=== PATIENT | female | born 1960 | race Hispanic/Latino ===

== ENCOUNTER 2018-10-12 20:38 | Emergency (ER) | payer OTHER ==
--- OUTSIDE RECORDS SUMMARY | 2018-10-12 20:40 | XMS REPORT | Clinical Summary ---
:1960 Author Organization [facility] Address [address] [place] [address] Care Team Providers Name Role Phone Rishi Seaman MD Primary Care Provider Allergies Not on File Medications Not on file Active Problems Not on file Encounters Date Type Specialty Care Team Description 12/12/2017 Transcribe Orders Physical Therapy Antonette Low Parkinson disease MD Angela (Primary Dx) after 10/11/2017 Social History Tobacco Use Types Packs/Day Years Used Date Never Assessed Sex Assigned at Date Recorded Not on file Job Start Date Occupation Industry Not on file Not on file Not on file Travel History Travel Start Travel End No recent travel history available. Last Filed Vital Signs Not on file Plan of Treatment Health Maintenance Due Date Last Done Comments CERVICAL CANCER SCREENING 10/18/1980 BREAST CANCER SCREENING 10/18/2009 COLON CANCER SCREENING 10/18/2009 SHINGLES VACCINES (#1) 10/18/2009 INFLUENZA VACCINE 03/11/2018 Results Not on fileafter 10/11/2017 Insurance Payer Benefit Plan / Group Subscriber ID Type Phone Address [place] [facility] [employer] xxxxxxxxxxxx [employer] Advance Directives Patient has advance care planning documents on file. For more information, please contact:[facility] [place] [address]
--- OUTSIDE RECORDS SUMMARY | 2018-10-12 20:41 | XMS REPORT | Continuity of Care Document ---
:1960 Author Organization Interface Problems Problem Status Onset Classification Date Comments Source Date Reported PARKINSONS DISEASE Active [address] Postlaminectomy 01/07/2018 [facility] syndrome, not 018 [place] elsewhere classified M54.16 - Active [facility] "RADICULOPATHY, 017 [place] LUMBAR REGION" UNK Active [place] 017 G89.4 - CHRONIC Active [facility] PAIN SYNDROME 016 [place] PARKINSON Active [address] TREMOR / LEFT SIDE Active [place] WEAKNESS 015 [place] / LEFT Active [place] SIDDE WEAKNESS 015 Vitamin D Active Problem 01/27/2018 Data [facility] deficiency<sup>1</ 015 [facility] sup> from [facility] on 02/15/15. 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, lumbar region Spinal stenosis, 01/07/2018 [facility] lumbar region [place] without neurogenic claudication Spinal stenosis, 01/07/2018 [facility] lumbosacral region [place] LT LEG/ARM UDU PANCHO Active [facility] LT LEG/ARM Active [facility] SPONDYLOSIS W/O Active [facility] MYELOPATHY OR RADICULOPA RADICULOPATHY, Active [facility] LUMBAR REGION Medications Medication Details Route Status Patient Ordering Order Source Instructions Provider Date Senokot 2 tab, Route: No Longer PO, Dosing Active 2016 [facility] Weight 43.324, kg, Daily, Start date: 02/04/17 9:00:00 CDT, Duration: 30 day, Stop date: 03/05/17 9:00:00 CDT heparin sodium, 5,000 unit, No Longer porcine 2500 Route: SUB-Q, Active 2016 [facility] UNT/ML Injectable Drug form: INJ, Solution Q12H, Dosing Weight 43.324, kg, Start date: 02/04/17 8:00:00 CDT, Duration: 30 day, Stop date: 03/05/17 21:00:00 CDT Famotidine 20 MG 20 mg, 1 tab, Inactive Oral Tablet Route: PO, Drug 2016 [facility] [Pepcid] form: TAB, Q12H, Dosing Weight 43.324, kg, Start date: 02/03/17 21:00:00 CDT, Duration: 30 day, Stop date: 03/05/17 9:00:00 CDT Docusate Sodium 100 mg, 1 cap, Inactive 100 MG Oral Route: PO, BID, 2016 [facility] Capsule [Colace] Dosing Weight 43.324, kg, Start date: 02/03/17 17:00:00 CDT, Duration: 30 day, Stop date: 03/05/17 9:00:00 CDT Cefazolin 1 gm, Route: Inactive IVPB, Drug 2016 [facility] form: INJ, Q8H, Dosing Weight 43.324, kg, Start date: 02/03/17 16:00:00 CDT, Duration: 3 doses or times, Stop date: 02/04/17 8:00:00 CDT, ABX Indication: Surgical Prophylaxis Pepcid 20 mg, Route: Inactive IVP, ONCE, 2016 [facility] Dosing Weight 43.324, kg, Start date: 02/03/17 10:38:00 CDT, Stop date: 02/03/17 10:38:00 CDT Reglan 10 mg, Route: Inactive IVPB, ONCE, 2016 [facility] Dosing Weight 43.324, kg, Start date: 02/03/17 10:38:00 CDT, Stop date: 02/03/17 10:38:00 CDT 72 HR Scopolamine 1 patch, Route: Inactive 0.0139 MG/HR TOP, Drug Form: 2016 [facility] Transdermal Patch ERFILM, Dosing Weight 43.324, kg, ONCE, Apply behind ear. Avoid use in elderly., Start date: 02/03/17 10:04:00 CDT, Stop date: 02/03/17 10:04:00 CDT Promethazine 6.25 mg, Route: Inactive 02/[facility] IVPB, ONCE, 2016 [facility] Dosing Weight 43.324, kg, PRN Nausea & Vomiting, Start date: 02/03/17 10:04:00 CDT Ondansetron 4 mg, Route: Inactive 02/[facility] IVP, ONCE, 2016 [facility] Dosing Weight 43.324, kg, PRN Nausea & Vomiting, Start date: 02/03/17 10:04:00 CDT Meperidine 12.5 mg, Route: Inactive 02/[facility] IVP, Q30Min, 2016 [facility] Dosing Weight 43.324, kg, PRN Other -See Comment, For shivering, Start date: 02/03/17 10:04:00 CDT, Duration: 2 doses or times, Stop date: Limited # of times Naloxone 0.4 mg, Route: Inactive IVP, Q2MIN, 2016 [facility] Dosing Weight 43.324, kg, PRN Narcotic Reversal, Start date: 02/03/17 10:04:00 CDT, Duration: 8 doses or times, Stop date: Limited # of times Flumazenil 0.2 mg, Route: Inactive 02/[facility] IVP, PRN, 2016 [facility] Dosing Weight 43.324, kg, PRN Benzodiazepine Reversal, Initial dose, Start date: 02/03/17 10:04:00 CDT, Duration: 30 day, Stop date: 03/05/17 10:03:00 CDT Diphenhydramine 12.5 mg, Route: Inactive IVP, Drug form: 2016 [facility] INJ, Q6H, Dosing Weight 43.324, kg, PRN Itching, Start date: 02/03/17 10:04:00 CDT, Duration: 30 day, Stop date: 03/05/17 10:03:00 CDT Ketorolac 30 mg, Route: Inactive IVP, ONCE, 2016 [facility] Dosing Weight 43.324, kg, Start date: 02/03/17 10:04:00 CDT, Duration: 1 doses or times, Stop date: 02/03/17 10:04:00 CDT Oxycodone 5 mg, Route: Inactive PO, Drug form: 2016 [facility] TAB, Q4H, Dosing Weight 43.324, kg, PRN Pain Score 4-6, Start date: 02/03/17 10:04:00 CDT, Duration: 30 day, Stop date: 03/05/17 10:03:00 CDT Fentanyl 25 microgram, Inactive Route: IVP, 2016 [facility] Q5Min, Dosing Weight 43.324, kg, PRN Pain Score 4-6, Priority: Routine, Start date: 02/03/17 10:04:00 CDT, Duration: 4 doses or times, Stop date: Limited # of times Morphine 2 mg, Route: Inactive IVP, Q5Min, 2016 [facility] Dosing Weight 43.324, kg, PRN Pain Score 4-6, Start date: 02/03/17 10:04:00 CDT, Duration: 5 doses or times, Stop date: Limited # of times Hydromorphone 0.5 mg, Route: Inactive IVP, Q5Min, 2016 [facility] Dosing Weight 43.324, kg, PRN Pain Score 7-10, Start date: 02/03/17 10:04:00 CDT, Duration: 4 doses or times, Stop date: Limited # of times Calcium Chloride 1,000 mL, Rate: Inactive 0.0014 MEQ/ML / 125 ml/hr, 2016 [facility] Potassium Infuse over: 8 Chloride 0.004 hr, Route: IV, MEQ/ML / Sodium Dosing Weight Chloride 0.103 43.324 kg, MEQ/ML / Sodium Total Volume: Lactate 0.028 1,000, Start MEQ/ML Injectable date: 02/03/17 Solution 10:04:00 CDT, Duration: 30 day, Stop date: 03/05/17 10:03:00 CDT magnesium citrate 300 ml, Route: Inactive PO, Drug Form: 2016 [facility] LIQ, Dosing Weight 43.324, kg, ONCE, PRN Constipation, Start date: 02/03/17 9:25:00 CDT Acetaminophen 325 1 tab, Route: Inactive MG / Hydrocodone PO, Drug Form: 2016 [facility] Bitartrate 5 MG TAB, Dosing Oral Tablet Weight 43.324, kg, Q4H, PRN Pain, Start date: 02/03/17 9:25:00 CDT, Duration: 30 day, Stop date: 03/05/17 9:24:00 CDT Dilaudid 0.5 mg, Route: Inactive IV, Q3H, Dosing 2016 [facility] Weight 43.324, kg, PRN Pain, Start date: 02/03/17 9:25:00 CDT, Duration: 30 day, Stop date: 03/05/17 9:24:00 CDT Zofran 4 mg, Route: Inactive IV, Drug form: 2016 [facility] INJ, Q8H, Dosing Weight 43.324, kg, PRN Nausea, Start date: 02/03/17 9:25:00 CDT, Duration: 30 day, Stop date: 03/05/17 9:24:00 CDT Sodium Chloride 1,000 mL, Rate: Inactive 0.154 MEQ/ML 75 ml/hr, 2016 [facility] Injectable Infuse over: Solution 13.3 hr, Route: IV, Dosing Weight 43.324 kg, Total Volume: 1,000, Start date: 02/03/17 9:25:00 CDT, Duration: 30 day, Stop date: 03/05/17 9:24:00 CDT neostigmine Route: IV, Drug Inactive (ANES) form: INJ, 2016 [facility] ONCE, Stop date: 02/03/17 9:16:00 CDT glycopyrrolate Route: IV, Drug Inactive (ANES) form: INJ, 2016 [facility] ONCE, Stop date: 02/03/17 9:16:00 CDT rocuronium (ANES) Route: IV, Drug Inactive form: INJ, 2016 [facility] ONCE, Stop date: 02/03/17 8:47:00 CDT dexamethasone Route: IV, Drug Inactive (ANES) form: INJ, 2016 [facility] ONCE, Stop date: 02/03/17 8:47:00 CDT ceFAZolin (ANES) Route: IV, Drug Inactive form: INJ, 2016, Stop date: 02/03/17 8:42:00 CDT acetaminophen Route: IV, Drug Inactive MH (ANES) form: INJ, 2016, Stop date: 02/03/17 8:42:00 CDT ondansetron Route: IV, Drug Inactive MH (ANES) form: INJ, 2016, Stop date: 02/03/17 8:42:00 CDT lidocaine (ANES) Route: IV, Drug Inactive form: INJ, 2016, Stop date: 02/03/17 8:12:00 CDT midazolam (ANES) Route: IV, Drug Inactive form: SOLN, 2016, Stop date: 02/03/17 8:12:00 CDT propofol (ANES) Route: IV, Drug Inactive form: INJ, 2016, Stop date: 02/03/17 8:12:00 CDT fentaNYL (ANES) Route: IV, Drug Inactive form: INJ, 2016, Stop date: 02/03/17 8:12:00 CDT Calcium Chloride 1,000 mL, Rate: Inactive 0.0014 MEQ/ML / 25 ml/hr, 2016 Potassium Infuse over: 40 Chloride 0.004 hr, Route: IV, MEQ/ML / Sodium Dosing Weight Chloride 0.103 43.324 kg, MEQ/ML / Sodium Total Volume: Lactate 0.028 1,000, Start MEQ/ML Injectable date: 02/03/17 Solution 7:49:00 CDT, Duration: 30 day, Stop date: 03/05/17 7:48:00 CDT LR 1000 mL INJ Route: IV, Inactive (ANES) Total Volume: 2016 1,000, Start date: 02/03/17 7:39:00 CDT, Stop date: 02/03/17 8:39:00 CDT Carbidopa 25 mg, PO, TID, Active 0 Refill(s) 2016 [facility] Allergies, Adverse Reactions, Alerts Substance Category Reaction Severity Reaction Status Date Comments Source type Reported traMADol Assertion Drug Active Mischer allergy Neuro Immunizations Immunization Date Given Site Status Last Updated Comments Source Results Order Name Results Value Reference Date Interpretation Comments Source Range Brain scan Brain scan EXAM: NM Brain Imaging SPECT 01/02 - [facility] SPECT NM SPECT - Medical This report was dictated by a Recycling Director/Fellow. I have personally reviewed the images as Center well as the Resident's interpretation and agree with the findings. DATE: 01/02/2018 10:11 AM CDT Read by: Robert Michaels MD Resident: Robert Michaels MD Dictated Date/time: 01/06/18 09:33 Electronically Signed by: Janneth Wilkinson MD 01/06/18 17:16 FINAL REPORT INDICATION: Brain CATRINA Scan-DX: Parkinson's Disease - Brain CATRINA Scan-DX: Parkinson's Disease, evaluate for Parkinson disease COMPARISON: Brain MRI from June 27, 2017. TECHNIQUE: After intravenous administration of 3 mCi of I-123 Ioflupane, delayed SPECT images of the head were obtained at 4 hours post injection. FINDINGS: Right striatum: There is decreased tracer uptake in the right putamen with a Z score of - 2.6 (Z scores represent standard deviation from normal age match population and are significant if less than -1.6). There is decreased tracer uptake in the right caudate with a Z score of - 2.01. The right striatum contributes 43% of the remaining dopamine transporter function with a Z score of -2.47 . Left striatum: Decrease tracer uptake in the left putamen is seen with a Z score of - 1.79. Tracer uptake is normal in the left caudate with a Z score of -1.55. The left striatum contributes 57% of the remaining dopamine transporter function with a Z score of -1.72. The remainder of tracer distribution in background brain parenchyma is within normal limits. IMPRESSION: The scan findings are suggestive of dysfunction of the dopamine transporters (right greater than left striata), suggestive of Parkinson disease. 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 After gadolinium administration, multiple sagittal and axial T1-we ighted images were obtained with fat suppression. Small hemangioma is noted at the right L3 vertebral body. Disc desiccation is present at the lower 3 lumbar intervertebral disc spaces with disc space narrowing noted at L5-S1. Modic changes are noted a t the opposing endplates at L4-L5 and the inferior endplate of L5. Schmorl' s node deformity at the inferior endplate of T12 and L3. Conus and cauda equina are unremarkable. Findings will be described per level as follows: At T12-L1,there is no acute disc herniation, central spinal stenosis or neural foraminal stenosis. At L1-L2,there is no acute disc herniation, central spinal stenosis or neural foraminal stenosis. At L2-L3,there is ligamentous thickening and degenerative arthropathy of the apophyseal joints at this level resulting in mild central spinal stenosis. No neural foraminal stenosis or acute disc herniation. At L3-L4,there is mild broad-based disc bulge present associated with ligamentous thickening and degenerative arthropathy of the apophyseal joints at this level resulting in moderate central spinal sten osis. No neural foraminal stenosis or acute disc herniation. At L4-L5,there is mild broad-based disc bulge present associated with ligamentous thickening and degenerative arthropathy of the apophyseal joints at this level resulting in moderate central spinal sten osis. No right neural foraminal stenosis. Mild left neural foraminal stenosis. No acute disc herniation. At L5-S1,there is moderate broad-based disc bulge present associated with ligamentous thickening and degenerative arthropathy of the apophyseal joints at this level resulting in no significant central s jhoana stenosis. Bilateral neural foraminal stenosis. No acute disc herniation. Left hemilaminectomy defect. A 9 x 9 x 9 mm cystic structure is noted at the lateral aspect of the spinal canal at this lev el in close approximation to the inferior aspect of the left apophyseal joint at this level which could represent a synovial cyst or radicular cyst. Enhancement is present at the dorsal lumbar soft tiss ues along the left paramedian incision contiguous with enhancement at the laminectomy defect similar to the previous exam now demonstrating extension into the left side of the lumbar spinal canal at thi s level encasing this cystic structure with enhancement. IMPRESSION: 1. Interval extension of enhancement into the left side of the lumbar spinal canal at the level of L5-S1 encasing a 9 x 9 x 9 mm cystic structure consistent with a radicular cyst or synovial cyst. 2. At L5-S1, enhancement is present at the dorsal lumbar soft tissues along the left paramedian incision contiguous with enhancement at the left laminectomy defect similar to the previous exam consistent with postoperative change. 3. Degenerative disc disease at L3-L4, L4-L5 and L5-S1 worst at L5-S1. 4. At L4-L5, mild left neural foraminal stenosis. 5. At L5-S1, bilateral neural foraminal stenosis. 6. Moderate central spinal stenosis is noted at L3-L4 and L4-L5. 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 Post-contrast sequences were also obtained. Contrast: 9 cc of IV gadolinium was administered. FINDINGS: ALIGNMENT AND GENERAL ASSESSMENT: 5 nonrib-bearing lumbar vertebra are present. No acute compression fracture or subluxation is seen. No pars interarticularis defects are present. The discs are desiccat ed in the lower lumbar spine from L3-L4 through L5-S1. Severe disc height loss at L5-S1 is seen. Modic type I degenerative endplate change at L4-L5 is seen. The discs in the upper lumbar spine are yu l in signal intensity and height. The conus terminates at L1. Paravertebral soft tissues are unremarkable. DISC SPACES: T12-L1: The disc is normal. There is no central or foraminal stenosis. The facet joints are unremarkable. L1-L2: The disc is normal. There is no central or foraminal stenosis. Mild facet arthrosis is present. L2-L3: The disc is normal. There is no central or foraminal stenosis. Mild facet arthrosis is present. L3-L4: Small annular disc bulge is present. Mild facet arthrosis and ligamentum flavum hypertrophy is seen. There is no spinal canal stenosis or neural foraminal narrowing. L4-L5: Large annular disc bulge is present. Moderate facet arthrosis and ligamentum flavum hypertrophy is seen. No central spinal canal stenosis is seen. There is mild to moderate bilateral neural foraminal narrowing, left greater than right. L5-S1: Large circumferential disc osteophyte complex is present. Moderate facet arthrosis is seen. Postoperative changes of left hemilaminectomy are seen with enhancing granulation tissue within the po stoperative site. There is no central spinal canal stenosis. Moderate- severe bilateral neural foraminal narrowing, right greater than left, is seen. There is no significant nerve root clumping to suggest arachnoiditis. IMPRESSION: 1. Degenerative changes of the lower lumbar spine with moderate-severe bilateral neural foraminal narrowing at L5-S1, right greater than left. 2. L4-L5 mild to moderate bilateral neural foraminal narrowing, left greater than right. 3. Postoperative changes of left L5 hemilaminectomy with enhancing granulation tissue within the postoperative bed. 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 FINDINGS: ALIGNMENT AND GENERAL SURVEY: There is normal alignment of the thoracic spine. T8 vertebral body hemangioma is present. The bone marrow is otherwise normal for the patient's age. There are no frac tures or compression deformities. The thoracic spine posterior elements are normal. The costovertebral junctions are unremarkable. SPINAL CORD: The thoracic spine spinal cord is normal in size and signal. The CSF space is unremarkable. The conus medullaris ends at the L1 level. DISK SPACES: The discs are desiccated throughout the thoracic spine and show mild disc height loss throughout the mid to lower thoracic spine. There is no disc bulge, protrusion or degenerative change a nd no significant central or foraminal stenosis. Scattered Schmorl's nodes in the lower thoracic spine are seen. IMPRESSION: No significant disc bulges or protrusions throughout the thoracic spine and no spinal canal stenosis or neural foraminal narrowing. SL: [id number] Brain wo Brain wo Study: Brain wo contrast MRI 06/27 - [facility] contrast contrast /2016 - [facility] Clinical Indication: R53.1 Weakness - R53.1 Weakness Read by: Reji Villatoro MD Dictated Date/time: 06/27/17 07:53 Electronically Signed by: Reji Villatoro MD 06/27/17 08:06 FINAL REPORT Comparison: None TECHNIQUE: Multiplanar, multisequence magnetic resonance imaging of the brain was performed before and after the administration of intravenous gadolinium contrast. FINDINGS: BRAIN PARENCHYMA: The brain parenchyma has normal signal with normal moblye- white junction, sulci, and gyri. There is no diffusion weighted imaging or ADC map abnormality to suggest acute/subacute ischem ia. No acute intracranial hemorrhage, mass effect, midline shift, or extra -axial fluid collection is seen. The corpus callosum appears normal. There is no magnetic susceptibility to suggest recent or r emote intracranial hemorrhage. No abnormal enhancement is seen. CEREBELLOPONTINE REGIONS AND SKULL BASE: The cerebellopontine angles appear unremarkable. The skull base, craniocervical junction, and brainstem are normal. The optic chiasm is normal. The sellar and pineal regions are unremarkable. VENTRICLES: The ventricles are normal in size and configuration. The basilar cisterns are normal. VESSELS: The venous sinuses are grossly unremarkable. The expected intracranial flow voids are present. ORBITS, VISUALIZED PARANASAL SINUSES AND MASTOIDS: The visualized orbits and paranasal sinuses are unremarkable. The mastoid air cells are clear. IMPRESSION: 1. No acute intracranial abnormality. 2. No abnormal enhancement. SL: [id number] Knee 3 Knee 3 Views EXAM: Knee 3 Views Bilateral DX 03/28 [facility] Views Bilateral DX /2016 - [place] Bilateral DATE: 03/28/2017 2:50 PM CDT DX INDICATION: - pain in bilateral knees Read by: Jamil Esquivel MD Dictated Date/time: 03/28/17 16:33 COMPARISON: None. Electronically Signed by: Jamil Esquivel MD 03/28/17 16:34 FINAL REPORT IMPRESSION: Right knee: No definite gross acute fracture or dislocation detected. Mild degenerative change about the knee, most noticeable along the medial compartment. No significant suprapatellar joint effusion is present. Left knee: No definite gross acute fracture or dislocation detected. Mild degenerative change about the knee, most noticeable along the medial compartment. No significant suprapatellar joint effusion is present. SL: [id number] Spine Spine EXAM: MRI CERVICAL SPINE WITHOUT CONTRAST 03/28 [facility] cervical cervical wo /2016 - [place] wo contrast MRI contrast MRI DATE: 03/28/2017 2:14 PM CDT Read by: Jamil Esquivel MD Dictated Date/time: 03/28/17 15:56 Electronically Signed by: Jamil Esquivel MD 03/28/17 16:10 FINAL REPORT INDICATION: Neck pain. ADDITIONAL INFORMATION AND CONTRAST: M47.812 Spondylosis without myelopathy or radiculopathy, cervical region - M47.812 Spondylosis without myelopathy or radiculopathy, cervical region. COMPARISON: None. TECHNIQUE: Multiplanar, multisequence noncontrast MR imaging of the cervical spine. FINDINGS: Vertebrae: Normal in shape, signal intensity and alignment. A 7.0 mm posterior superior C4 vertebral lesion likely hemangioma. Disks and neuroforamina: C1-C2: Gross anatomic alignment. C2-C3: No acute disc herniation, significant spinal or foraminal stenosis detected. C3-C4: Mild diffuse disc bulge effacing the anterior CSF space without significant cord contour abnormality. Mild bilateral foraminal stenosis is present. C4-C5: Mild diffuse disc bulge. No significant cord contour abnormality or edema. No significant foraminal stenosis detected. C5-C6: Posterior disc osteophyte complex and disc bulge. No significant cord contour abnormality or edema. Severe bilateral foraminal stenosis from prominent uncovertebral hypertrophy and facet arthrosi s. Please correlate with neurologic symptoms. C6-C7: Posterior disc osteophyte complex and disc bulge. No significant cord contour abnormality or edema. No significant foraminal stenosis detected. C7-T1: No acute disc herniation, significant spinal or foraminal stenosis detected. Spinal canal and cord: No convincing evidence of cord compression or focal signal abnormality detected. Paraspinal soft tissues: Normal. IMPRESSION: 1. Multilevel degenerative disc disease and facet arthrosis, most pronounced at C3/C4, C5/C6 and C6/C7 as detailed above. 2. No definite acute compression fracture or pathologic subluxation detected. SL: [id number] BLOOD BANK Antibody Negative 01/27 RESULTS Scrn /2016 [facility] (01/27/17 11:42 AM) BLOOD BANK ABO/Rh O POS 01/27 RESULTS /2016 [facility] CHEM PANEL Globulin 3.1 g/dL 2.7 - 4.2 01/27 [facility] CHEM PANEL AGAP 11.9 meq/L 10.0 - 01/27 MH 20.0 [facility] CHEM PANEL A/G Ratio 1.3 0.7 - 1.6 01/27 [facility] CHEM PANEL B/C Ratio 22 6 - 25 01/27 /2016 [facility] CHEM PANEL eGFR 97 01/27 Result Comment: The eGFR is calculated using the CKD-EPI formula. In most young, healthy individuals the eGFR will be >90 mL/ min/1.73m2. The eGFR declines with age. An eGFR of 60-89 may be normal in mL/min/1.7 /2017 some populations, particularly the elderly, for whom the CKD-EPI formula has not been extensively validated. Use of the eGFR is not recommended in the following populations: [place] 3m2 Individuals with unstable creatinine concentrations, including patients and those with serious co-morbid conditions. Patients with extremes in muscle mass or diet. The data above are obtained from the National Kidney Disease Education Program (NKDEP) which additionally recommends that when the eGFR is used in patients with extremes of body mass index for purposes of drug dosing, the eGFR should be multiplied by the estimated BMI. CHEM PANEL AST 11 unit/L 0 - 37 01/27 [facility] CHEM PANEL Bili Total 0.3 mg/dL 0.2 - 1.3 01/27 [facility] CHEM PANEL Alk Phos 129 unit/L 39 - 136 01/27 [facility] CHEM PANEL BUN 15 mg/dL 7 - 22 01/27 [facility] CHEM PANEL CO2 28 meq/L 24 - 32 01/27 [facility] CHEM PANEL Chloride Lvl 104 meq/L 95 - 109 01/27 [facility] CHEM PANEL Creatinine 0.68 mg/dL 0.50 - 01/27 Lvl 1.40 /2016 [facility] CHEM PANEL Glucose Lvl 101 mg/dL 70 - 99 01/27 [facility] CHEM PANEL Sodium Lvl 139 meq/L 135 - 145 01/27 [facility] CHEM PANEL Potassium 4.9 meq/L 3.5 - 5.1 01/27 Lvl [facility] CHEM PANEL ALT 19 unit/L 0 - 65 01/27 [facility] CHEM PANEL Calcium Lvl 9.6 mg/dL 8.5 - 10.5 01/27 [facility] CHEM PANEL Total 7.2 g/dL 6.4 - 8.4 01/27 [facility] CHEM PANEL Albumin Lvl 4.1 g/dL 3.5 - 5.0 01/27 [facility] HEMATOLOGY Monocytes # 0.4 K/CMM 0.0 - 0.8 01/27 [facility] HEMATOLOGY Segs-Bands # 4.5 K/CMM 1.5 - 8.1 01/27 [facility] HEMATOLOGY Lymphocytes 1.6 K/CMM 1.0 - 5.5 01/27 MH # /2017 [facility] HEMATOLOGY Eosinophils 0.7 % 0.0 - 4.0 01/27 [facility] HEMATOLOGY Basophils 0.5 % 0.0 - 1.0 01/27 [facility] HEMATOLOGY Monocytes 5.9 % 2.0 - 12.0 01/27 /2016 [facility] Lymphocytes 24.5 % 20.0 - 01/27 MH 40.0 /2016 [facility] Segs 68.4 % 45.0 - 01/27 MH 75.0 [facility] INR 0.95 0.85 - 01/27 MH 1.17 /2016 [facility] PTT 25.1 s 22.9 - 01/27 MH 35.8 /2016 [facility] PT 12.9 s 12.0 - 01/27 MH 14.7 /2016 [facility] MPV 8.1 fL 7.4 - 10.4 01/27 /2016 [facility] Platelet 306 K/CMM 133 - 450 01/27 /2016 [facility] RDW 12.9 % 11.5 - 01/27 MH 14.5 [facility] Hgb 13.6 g/dL 12.0 - 01/27 MH 16.0 [facility] Hct 39.5 % 36.0 - 01/27 MH 48.0 [facility] RBC 4.26 M/CMM 4.20 - 01/27 MH 5.40 /2016 [facility] WBC 6.6 K/CMM 3.7 - 10.4 01/27 /2016 [facility] MCH 31.9 pg 27.0 - 01/27 MH 31.0 [facility] MCHC 34.4 g/dL 32.0 - 01/27 MH 36.0 [facility] MCV 92.7 fL 80.0 - 01/27 MH 98.0 [facility] Spine Spine lumbar PROCEDURE: LUMBAR SPINE MAGNETIC RESONANCE IMAGING - [facility] lumbar wo wo - [place] contrast MRI MRI CLINICAL INDICATION: G89.4 Chronic pain syndrome. Read by: Jeferson Saavedra MD Dictated Date/time: 02/29/16 14:27 Electronically Signed by: Jeferson Saavedra MD 02/29/16 15:14 FINAL REPORT Note: The patient also reports leg weakness. COMPARISON: None. TECHNIQUE: Unenhanced axial and sagittal MR images of the lumbar spine were performed. FINDINGS: 5 nonrib-bearing lumbar vertebral bodies are assumed. There is approximately 2 mm retrolisthesis of L5 on S1. The remaining lumbar vertebral bodies are normally aligned. There is no demonstrable spondylolysis. There are anterior marginal osteophytes from L3 through S1. There are mixed Modic type I and type II degenerative changes of the vertebral endplates with Schmorl's nodes at L4-L5 and L5-S1. Schmorl 's nodes are also noted involving the inferior vertebral endplates of T12 and L3 and the superior vertebral endplate of L3. There are several scattered foci of T1 and T2 hyperintensity in the marro w of the spine which may represent benign hemangiomas or focal fatty marrow change the largest measuring 1.1 cm at L3. There is no compression deformity. There is partial ankylosis of the visualized left sacroiliac joint. There are mild degenerative changes of the visualized right sacroiliac joint. There is no significant abnormality of the visualized re troperitoneal and paravertebral soft tissues. The conus medullaris terminates at the level of L1. The visualized lower thoracic spinal cord demonstrates normal signal intensity. T12-L1: Mild facet arthropathy. No significant foraminal narrowing or spinal stenosis. L1-L2: No additional significant abnormality. L2-L3: No additional significant abnormality. L3-L4: Disc desiccation. Anterior annular fissure. Broad-based posterior disc bulging most pronounced in the posterolateral aspects measuring a maximal AP dimension of approximately 3 mm. Mild bilateral foraminal narrowing. Mild spinal stenosis. L4-L5: Mild posterior disc space narrowing. Disc desiccation. Anterior annular fissure. Broad-based posterior disc bulging most pronounced in the left posterolateral aspect measuring a maximal AP dimens ion of approximately 4 mm with a central annular fissure. Mild facet arthropathy. Mild right foraminal narrowing. Moderate left foraminal narrowing. Mild spinal stenosis. L5-S1: Grade 1 retrolisthesis of L5 on S1. Moderate to severe diffuse disc space narrowing most pronounced posteriorly. Disc desiccation. Anterior and lateral disc bulging. Broad-based posterior disc bu lge/protrusion/osteophyte complex measuring a maximal AP dimension of approximately 5 mm with an annular fissure. Mild to moderate facet arthropathy. There is an approximately 1 cm perineural cyst in th e left aspect of the spinal canal at the level of S1 likely involving the left S1 nerve root. Moderate to severe bilateral foraminal narrowing. No significant spinal stenosis. IMPRESSION: 1. Grade 1 retrolisthesis of L5 on S1. 2. Lumbar spondylosis. 3. Facet arthropathy at T12-L1. 4. Disc desiccation, broad-based posterior disc bulging, mild bilateral foraminal narrowing and mild spinal stenosis at L3-L4. 5. Posterior disc space narrowing, degenerative endplate changes, disc desiccation, broad-based posterior disc bulging with an annular fissure, facet arthropathy, mild right foraminal narrowing, moderat e left foraminal narrowing and mild spinal stenosis at L4-L5. 6. Diffuse disc space narrowing, degenerative endplate changes, disc desiccation, broad-based posterior disc bulge/protrusion/osteophyte complex with an annular fissure, facet arthropathy and moderate to severe bilateral foraminal narrowing at L5-S1. 7. Degenerative changes of the right sacroiliac joint. 8. Partial ankylosis of the left sacroiliac joint. SL: 15 Spine Spine MRI CERVICAL SPINE WITHOUT CONTRAST 02/06 - [facility] cervical cervical - [facility] contrast MRI d contrast MRI INDICATION: Right upper extremity radiculopathy Read by: Ken Geiger MD Dictated Date/time: 02/07/16 13:37 Electronically Signed by: Ken Geiger MD 02/07/16 13:47 FINAL REPORT COMPARISON: None DISCUSSION: Image detail is degraded by motion artifacts. Alignment: Vertebral body alignment is within normal limits. Craniocervical junction: No significant abnormalities. The foramen magnum is patent. Vertebral bodies: There is a small hemangioma of the C4 vertebral body. The vertebral bodies are otherwise normal in height and signal, from C2 through T4. Spinal cord: Grossly normal in signal and morphology, from the cervicomedullary junction through T4. Paraspinal soft tissues: No signal abnormalities are visualized. Disc spaces, spinal canal and foramina: C2-C3: The disc is normal in height and signal. There is no significant arthrosis. The spinal canal and foramina are patent. C3-C4: The disc is normal in height and signal. There is mild posterior disc osteophyte complex, without spinal canal stenosis. Arthrosis results in mild bilateral foraminal stenosis. C4-C5: The disc is normal in height and signal. There is mild posterior disc osteophyte complex, without spinal canal stenosis. There is mild bilateral uncovertebral and facet arthrosis, without foraminal stenosis. C5-C6: There is mild loss of disc height. Posterior disc osteophyte complex results in mild spinal canal stenosis, with anterior thecal effacement. Arthrosis contributes to severe right foraminal stenosis and moderate left foraminal stenosis. C6-C7: There is mild loss of dorsal disc height. There is mild posterior disc osteophyte complex, without spinal canal stenosis. There is mild bilateral arthrosis, without foraminal stenosis. C7-T1: The disc is normal in height and signal. There is no significant arthrosis. The spinal canal and foramina are patent. IMPRESSION: Mild spondylosis of the cervical spine, as described. Spinal canal stenosis is mild at worst, at C5-C6. Foraminal stenosis is the worst at C5-C6, severe on the right side. SL:16 Brain scan Brain scan EXAM: Catrina scan with brain SPECT 06/22 - [facility] SPECT SD SPECT - [facility] This report was dictated by a Recycling Director/Fellow. I have personally reviewed the images as Center well as the Resident's interpretation and agree with the findings. DATE: June 22, 2015 at 1402. Read by: Mando Teran MD Resident: Mando Teran MD Dictated Date/time: 06/22/15 16:11 Electronically Signed by: Josh Donato MD 06/22/15 17:26 FINAL REPORT INDICATION: Left-sided tremor, neck pain, headache, changing gait TECHNIQUE: After intravenous administration of 4.4 mCi of I-123 Ioflupane , delayed SPECT images of the head were obtained at 4 hours post injection. FINDINGS: Mild, diffuse decrease in tracer uptake in the right basal ganglia is suggestive of early Parkinson disease. The tracer uptake in the left basal ganglia appears normal. IMPRESSION: The scan findings are consistent with dysfunction of the dopamine transporters in the right basal ganglia, suggestive of Parkinson disease. Spine Spine MR CERVICAL SPINE 03/03 - cervical cervical /2014 - [facility] contrast MRI HISTORY: 54 y/o F / RADICULOPATHY contrast MRI Read by: Perry Lancaster MD Dictated Date/time: 03/05/15 10:21 TECHNIQUE: Sagittal T1 and T2-weighted sequences are performed in addition to axial 3-D FSE and axial gradient echo images. Electronically Signed by : Perry Lancaster MD 03/05/15 10:27 FINAL REPORT FINDINGS: There is a mild exaggeration of the normal cervical lordosis. C2-C3: Mild desiccation. No significant stenosis. C3-C4: Mild desiccation and disc bulge. Mild to moderate left-sided foraminal narrowing due to spurring of the uncovertebral joint. C4-C5: Mild generalized is bulge slightly more prominent to the right of midline. No significant stenosis. C5-C6: Moderate desiccation and narrowing of the disc space. Eccentric disc bulge projects into the caudal aspect of the neural foramen on the right with some spurring of the inferior endplate of C5 as well. Findings produce a moderate right-sided foraminal narrowing. C6-C7: Mild desiccation and disc bulge. Some thickening of the ligamentum flavum posteriorly combines with disc bulge to produce a moderate narrowing of the canal at the level of the inferior endplate o f C6. No cord compression. Some ventral subarachnoid space preserved. C7-T1: Unremarkable. The cord is normal in caliber and signal. IMPRESSION: 1. Mild left-sided foraminal narrowing due to spurring of the uncovertebral joint at C3-C4. 2. Endplate spur and eccentric disc bulge results in moderate right-sided foraminal narrowing at C5-C6. 3. Mild narrowing of the central canal at C6-C7 due to some disc bulge and posterior ligamentum flavum thickening. SL: 12 Brain wo Brain wo MRI BRAIN 03/03 - contrast contrast MRI /2014 - [facility] MRI HISTORY: TREMOR LEFT SIDE WEAKNESS Read by: Perry Lancaster MD Dictated Date/time: 03/05/15 10:27 FINDINGS: Sagittal T1-weighted images revealed normal appearance of the cerebellar tonsils and pituitary gland. There is no evidence of intracranial mass or shift in midline structures. Axial FLAIR imag Electronically Signed by: Perry Lancaster MD 03/05/15 10:29 es show no significant white matter disease. Axial gradient images reveal no evidence of prior hemorrhage. FINAL REPORT Axial diffusion weighted images reveal no recent infarct. Axial T2 images show normal flow-voids in the major vascular structures. The paranasal sinuses and mastoid air cells are clear. IMPRESSION: Negative MRI of brain. SL: 12 Vital Signs Vital Sign Value Date Comments Source BMI Calculated 24.95 10/21/2017 [facility] Height 157.48 cm 10/21/2017 [facility] Weight 61.875 10/21/2017 [facility] Systolic (mm Hg) 131 10/21/2017 [facility] Diastolic (mm Hg) 82 10/21/2017 [facility] Heart Rate 84 10/21/2017 [facility] Weight 43.409 07/29/2017 [facility] BMI Calculated 18.69 07/29/2017 [facility] Height 152.4 cm 07/29/2017 [facility] Systolic (mm Hg) 110 02/03/2017 [facility] Diastolic (mm Hg) 68 02/03/2017 [facility] Systolic (mm Hg) 123 02/03/2017 [facility] Diastolic (mm Hg) 70 02/03/2017 [facility] Systolic (mm Hg) 129 02/03/2017 [facility] Diastolic (mm Hg) 64 02/03/2017 [facility] Respitory Rate 16 02/03/2017 [facility] Heart Rate 79 02/03/2017 [facility] Heart Rate 82 02/03/2017 [facility] Respitory Rate 14 02/03/2017 [facility] Heart Rate 83 01/27/2017 [facility] Temperature Oral (F) 98.2 F 01/27/2017 [facility] Weight 43.324 01/27/2017 [facility] BMI Calculated 17.47 01/27/2017 [facility] Height 157.48 cm 01/27/2017 [facility] Encounters Location Location Encounter Encounter Reason Attending ADM DC Status Source Details Type Number For Provider Date Date Visit [facility] [id number] Fe 03/03 03/04 Santy 0 Majmundar /2014 [facility] Outpatient [id number] Britton 06/22 06/23 [facility] Santy 1 Majmudar /2014 [facility] Outpatient [id number] FIRAS 07/12 [facility] 0 QUDDOS [facility] OP Therapy [id number] Firas 11/28 12/28 [facility] Patients 0 Quddos /2015 [facility] Outpatient [id number] FIRAS 12/10 [facility] 1 QUDDOS [facility] OP Therapy [id number] Firjorge 12/31 01/30 [facility] Patients 1 Quddos /2015 [facility] Outpt Diag [id number] Hilario 02/06 02/07 [facility] 0 Mik /2015 [facility] Outpt Diag [id number] Hilario 02/27 02/28 [facility] Outpatient Services 1 Mik /2015 [facility] [id number] MARGARITA 10/07 [facility] 2 CUEVA [place] [facility] [id number] JAMIL 11/05 [facility] 3 KALIA [place] Out[facility] [id number] FIRJORGE 12/09 [facility] 4 QU [place] Out[facility] [id number] BENJAMIN BEE 12/10 [facility] 5 ZALAVARRI [place] Outpatient [id number] VIJAY ADKINS 12/24 [facility] Outpatient [id number] JAMIL 02/03 [facility] 7 KALIA [facility] [id number] Jamil 02/03 02/03 [place] 3 Kalia [facility] Outpatient [id number] GERALD 02/21 [facility] 8 EST [place] Outpatient [id number] JAMIL 03/18 [facility] 9 Santy [facility] Outpt Diag [id number] Jamil 03/28 03/29 [facility] Outpatient [facility] 2 Kalia [facility] [id number] JAMIL 05/13 [facility] 0 Santy [facility] Phone [id number] 06/26 06/28 [facility] [place] [facility] Phone [id number] 06/26 06/28 [facility] [place] [facility] Outside [id number] 06/26 06/28 [facility] [place] Records [facility] Outpt Diag [id number] Jamil 06/27 06/28 [facility] Outpatient Services 3 Kalia [facility] MNA Phone [id number] 07/07 07/09 [facility] [place] [facility] Spine Phone [phone] 07/16 07/18 [facility] Message Neuro Outpatient [id number] JAMIL 07/29 [facility] 1 [place] [facility] Outpatient [id number] Hilario 07/29 07/30 [facility] Mik /2016 [facility] Outpt Diag [id number] Joseph Khushboo 10/01 10/02 [facility] Outpatient Services [facility] MNA Phone [id number] 10/08 10/10 [facility] Message Neuro y [facility] Outpatient [id number] JAMIL 10/21 [facility] 2 KALIA [place] [facility] Outpatient [id number] Hilario 10/21 10/22 [facility] 2 Mik [facility] Outpatient [id number] Antonette 01/02 01/03 [facility] Procedures Procedure Code Date Perfomer Comments Source
--- OUTSIDE RECORDS SUMMARY | 2018-10-12 20:42 | XMS REPORT | Summary of Care ---
:1960 Author Organization [facility] [place] Address [facility] [place], [place] [address]- Encounter HQ Encntr_alias(FIN) [id number] Date(s): 02/28/16 - 02/28/16 [facility] Outpatient Imaging [address], [address] [place] [address]- [phone] Discharge Disposition: Home or Self Care Attending Physician: Hilario Houser DO Vital Signs No data available for this section Problem List Condition Effective Dates Status Health Status Informant Vitamin D deficiency1 01/02/15 Active 1Data migrated from [employer] on 02/15/15. Allergies, Adverse Reactions, Alerts Substance Reaction Severity Status traMADol Active Medications No data available for this section Results No data available for this section Immunizations No data available for this section Procedures No data available for this section Social History Social History Type Response Smoking Status Never smoker; Exposure to Tobacco Smoke None; Cigarette Smoking Last 365 Days No; Reg Smoking Cessation Counseling No Assessment and Plan No data available for this section
--- OUTSIDE RECORDS SUMMARY | 2018-10-12 20:42 | XMS REPORT | Summary of Care ---
:1960 Author Organization [facility] Address [address] [place] [address], [address] [place] [address]- Encounter HQ Scottntr_jeff(FIN) [id number] Date(s): 06/26/17 - 06/27/17 [facility] [address] [facility], [address] [place] [phone] Vital Signs No data available for this section Problem List Condition Effective Dates Status Health Status Informant GERD (gastroesophageal reflux Active disease)(Confirmed) Parkinson's disease(Confirmed) Active Vitamin D deficiency1 01/02/15 Active 1Data migrated from [employer] on 02/15/15. Allergies, Adverse Reactions, Alerts Substance [...]
--- OUTSIDE RECORDS SUMMARY | 2018-10-12 20:42 | XMS REPORT | Summary of Care ---
:1960 Author Organization [facility] Address [address] [place], [place] [address]- Encounter HQ Encntr_alimaisha(FIN) [phone] Date(s): 02/03/17 - 02/03/17 [facility] [address] [place] [address]- Final: Spondylosis without myelopathy or radiculopathy, lumbar region Discharge Disposition: Home or Self Care Attending Physician: Jamil Zavala MD Admitting Physician: Jamil Zavala MD Referring Physician: Jamil Zavala MD Vital Signs Most recent to oldest 1 2 3 4 [Reference Range]: Height 157.48 cm (01/27/17 11:13 AM) Temperature Oral 98.2 DegF [96.4-99.1 DegF] (01/27/17 11:13 AM) Blood Pressure 110/68 mmHg 123/70 mmHg 129/64 mmHg 121/56 mmHg [90-140/60-90 mmHg] (02/03/17 12:15 PM) (02/03/17 11:30 AM) (02/03/17 10:30 AM ) (02/03/17 10:30 AM) Respiratory Rate 16 BRMIN 14 BRMIN 12 BRMIN [14-20 BRMIN] (02/03/17 10:30 AM) (02/03/17 10:15 AM) *LOW* (02/03/17 10:15 AM) Peripheral Pulse Rate 79 bpm 82 bpm 83 bpm [60-100 bpm] (02/03/17 10:30 AM) (02/03/17 10:15 AM) (01/27/17 11:13 AM) Weight 43.324 kg (01/27/17 11:13 AM) Body Mass Index 17.47 m2 (01/27/17 11:13 AM) Problem List Condition Effective Dates Status Health Status Informant GERD (gastroesophageal reflux Active disease)(Confirmed) Parkinson's disease(Confirmed) Active Vitamin D deficiency1 01/02/15 Active 1Data migrated from [facility] on 02/15/15. Allergies, Adverse Reactions, Alerts Substance Reaction Severity Status traMADol Active Medications acetaminophen (ANES) Route: IV, Drug form: INJ, ONCE, Stop date: 02/03/17 8:42:00 CDT Start Date: 02/03/17 Stop Date: 02/03/17 Status: Completedacetaminophen-hydrocodone 325 mg-5 mg oral tablet 1 tab, Route: PO, Drug Form: TAB, Dosing Weight 43.324, kg, Q4H, PRN Pain, Start date: 02/03/17 9:25:00 CDT, Duration: 30 day, Stop date: 03/05/17 9:24:00 CDT Start Date: 02/03/17 Stop Date: 02/03/17 Status: Discontinuedacetaminophen-hydrocodone 325 mg-5 mg oral tablet 1 tab, Route: PO, Drug Form: TAB, Dosing Weight 43.324, kg, Q4H, PRN Pain, Start date: 02/03/17 9:25:00 CDT, Duration: 30 day, Stop date: 03/05/17 9:24:00 CDT Start Date: 02/03/17 Stop Date: 02/03/17 Status: DiscontinuedANES diphenhydrAMINE 12.5 mg, Route: IVP, Drug form: INJ, Q6H, Dosing Weight 43.324, kg, PRN Itching , Start date: 02/03/17 10:04:00 CDT, Duration: 30 day, Stop date: 03/05/17 10:03 :00 CDT Start Date: 02/03/17 Stop Date: 02/03/17 Status: DiscontinuedANES fentaNYL 25 microgram, Route: IVP, Q5Min, Dosing Weight 43.324, kg, PRN Pain Score 4-6, Priority: Routine, Start date: 02/03/17 10:04:00 CDT, Duration: 4 doses or times , Stop date: Limited # of times Start Date: 02/03/17 Stop Date: 02/03/17 Status: DiscontinuedANES fentaNYL 50 microgram, Route: IVP, Q5Min, Dosing Weight 43.324, kg, PRN Pain Score 7-10, Priority: Routine, Start date: 02/03/17 10:04:00 CDT, Duration: 2 doses or times , Stop date: Limited # of times Start Date: 02/03/17 Stop Date: 02/03/17 Status: DiscontinuedANES flumazenil 0.2 mg, Route: IVP, PRN, Dosing Weight 43.324, kg, PRN Benzodiazepine Reversal, Initial dose, Start date: 02/03/17 10:04:00 CDT, Duration: 30 day, Stop date: 10:03:00 CDT Start Date: 02/03/17 Stop Date: 02/03/17 Status: DiscontinuedANES HYDROmorphone 0.5 mg, Route: IVP, Q5Min, Dosing Weight 43.324, kg, PRN Pain Score 7-10, Start date: 02/03/17 10:04:00 CDT, Duration: 4 doses or times, Stop date: Limited # of times Start Date: 02/03/17 Stop Date: 02/03/17 Status: DiscontinuedANES ketOROLAC 30 mg, Route: IVP, ONCE, Dosing Weight 43.324, kg, Start date: 02/03/17 10:04: 00 CDT, Duration: 1 doses or times, Stop date: 02/03/17 10:04:00 CDT Start Date: 02/03/17 Stop Date: 02/03/17 Status: OrderedANES meperidine 12.5 mg, Route: IVP, Q30Min, Dosing Weight 43.324, kg, PRN Other -See Comment, For shivering, Start date: 02/03/17 10:04:00 CDT, Duration: 2 doses or times, Stop date: Limited # of times Start Date: 02/03/17 Stop Date: 02/03/17 Status: DiscontinuedANES morphine Sulfate 2 mg, Route: IVP, Q5Min, Dosing Weight 43.324, kg, PRN Pain Score 4-6, Start date: 02/03/17 10:04:00CDT, Duration: 5 doses or times, Stop date: Limited # of times Start Date: 02/03/17 Stop Date: 02/03/17 Status: DiscontinuedANES morphine Sulfate 4 mg, Route: IVP, Q5Min, Dosing Weight 43.324, kg, PRN Pain Score 7-10, Start date: 02/03/17 10:04:00 CDT, Duration: 3 doses or times, Stop date: Limited # of times Start Date: 02/03/17 Stop Date: 02/03/17 Status: DiscontinuedANES naloxone 0.4 mg, Route: IVP, Q2MIN, Dosing Weight 43.324, kg, PRN Narcotic Reversal, Start date: 02/03/17 10:04:00 CDT, Duration: 8 doses or times, Stop date: Limited # of times Start Date: 02/03/17 Stop Date: 02/03/17 Status: DiscontinuedANES ondansetron 4 mg, Route: IVP, ONCE, Dosing Weight 43.324, kg, PRN Nausea & Vomiting, Start date: 02/03/17 10:04:00 CDT Start Date: 02/03/17 Stop Date: 02/03/17 Status: CompletedANES oxyCODONE 5 mg, Route: PO, Drug form: TAB, Q4H, Dosing Weight 43.324, kg, PRN Pain Score 4 -6, Start date: 02/03/17 10:04:00 CDT, Duration: 30 day, Stop date: 03/05/17 10: 03:00 CDT Start Date: 02/03/17 Stop Date: 02/03/17 Status: DiscontinuedANES oxyCODONE 10 mg, Route: PO, Drug form: TAB, Q4H, Dosing Weight 43.324, kg, PRN Pain Score 7-10, Start date: 02/03/17 10:04:00 CDT, Duration: 30 day, Stop date: 03/05/17 10:03:00 CDT Start Date: 02/03/17 Stop Date: 02/03/17 Status: DiscontinuedANES promethazine 6.25 mg, Route: IVPB, ONCE, Dosing Weight 43.324, kg, PRN Nausea & Vomiting , Start date: 02/03/17 10:04:00 CDT Start Date: 02/03/17 Stop Date: 02/03/17 Status: CompletedANES scopolamine 1.5 mg transdermal film 1 patch, Route: TOP, Drug Form: ERFILM, Dosing Weight 43.324, kg, ONCE, Apply behind ear. Avoid usein elderly., Start date: 02/03/17 10:04:00 CDT, Stop date : 02/03/17 10:04:00 CDT Start Date: 02/03/17 Stop Date: 02/03/17 Status: Orderedcarbidopa 25 mg, PO, TID, 0 Refill(s) Start Date: 01/27/17 Status: OrderedceFAZolin (ANES) Route: IV, Drug form: INJ, ONCE, Stop date: 02/03/17 8:42:00 CDT Start Date: 02/03/17 Stop Date: 02/03/17 Status: CompletedceFAZolin (SCIP) 1 gm, Route: IVPB, Drug form: INJ, Q8H, Dosing Weight 43.324, kg, Start date: 16:00:00 CDT,Duration: 3 doses or times, Stop date: 02/04/17 8:00:00 CDT , ABX Indication: Surgical Prophylaxis Start Date: 02/03/17 Stop Date: 02/03/17 Status: DiscontinuedColace 100 mg oral capsule 100 mg, 1 cap, Route: PO, BID, Dosing Weight 43.324, kg, Start date: 02/03/17 17 :00:00 CDT, Duration: 30 day, Stop date: 03/05/17 9:00:00 CDT Start Date: 02/03/17 Stop Date: 02/03/17 Status: Discontinueddexamethasone (ANES) Route: IV, Drug form: INJ, ONCE, Stop date: 02/03/17 8:47:00 CDT Start Date: 02/03/17 Stop Date: 02/03/17 Status: CompletedDilaudid 0.5 mg, Route: IV, Q3H, Dosing Weight 43.324, kg, PRN Pain, Start date: 9:25:00 CDT, Duration: 30 day, Stop date: 03/05/17 9:24:00 CDT Start Date: 02/03/17 Stop Date: 02/03/17 Status: DiscontinuedfentaNYL (ANES) Route: IV, Drug form: INJ, ONCE, Stop date: 02/03/17 8:12:00 CDT Start Date: 02/03/17 Stop Date: 02/03/17 Status: Completedglycopyrrolate (ANES) Route: IV, Drug form: INJ, ONCE, Stop date: 02/03/17 9:16:00 CDT Start Date: 02/03/17 Stop Date: 02/03/17 Status: Completedheparin 5000 units/mL injectable solution 5,000 unit, Route: SUB-Q, Drug form: INJ, Q12H, Dosing Weight 43.324, kg, Start date: 02/04/17 8:00:00 CDT, Duration: 30 day, Stop date: 03/05/17 21:00:00 CDT Start Date: 02/04/17 Stop Date: 02/03/17 Status: CanceledLactated Ringers Injection IV 1000 mL 1,000 mL, Rate: 25 ml/hr, Infuse over: 40 hr, Route: IV, Dosing Weight 43.324 kg , Total Volume: 1,000, Start date: 02/03/17 7:49:00 CDT, Duration: 30 day, Stop date: 03/05/17 7:48:00 CDT Start Date: 02/03/17 Stop Date: 02/03/17 Status: DiscontinuedLactated Ringers Injection IV 1000 mL 1,000 mL, Rate: 125 ml/hr, Infuse over: 8 hr, Route: IV, Dosing Weight 43.324 kg , Total Volume: 1,000, Start date: 02/03/17 10:04:00 CDT, Duration: 30 day, Stop date: 03/05/17 10:03:00 CDT Start Date: 02/03/17 Stop Date: 02/03/17 Status: Discontinuedlidocaine (ANES) Route: IV, Drug form: INJ, ONCE, Stop date: 02/03/17 8:12:00 CDT Start Date: 02/03/17 Stop Date: 02/03/17 Status: CompletedLR 1000 mL INJ (ANES) Route: IV, Total Volume: 1,000, Start date: 02/03/17 7:39:00 CDT, Stop date: 8:39:00 CDT Start Date: 02/03/17 Stop Date: 02/03/17 Status: Completedmagnesium citrate 300 ml, Route: PO, Drug Form: LIQ, Dosing Weight 43.324, kg, ONCE, PRN Constipation, Start date: 02/03/17 9:25:00 CDT Start Date: 02/03/17 Stop Date: 02/03/17 Status: Discontinuedmidazolam (ANES) Route: IV, Drug form: SOLN, ONCE, Stop date: 02/03/17 8:12:00 CDT Start Date: 02/03/17 Stop Date: 02/03/17 Status: Completedneostigmine (ANES) Route: IV, Drug form: INJ, ONCE, Stop date: 02/03/17 9:16:00 CDT Start Date: 02/03/17 Stop Date: 02/03/17 Status: Completedondansetron (ANES) Route: IV, Drug form: INJ, ONCE, Stop date: 02/03/17 8:42:00 CDT Start Date: 02/03/17 Stop Date: 02/03/17 Status: CompletedPepcid 20 mg, Route: IVP, ONCE, Dosing Weight 43.324, kg, Start date: 02/03/17 10:38: 00 CDT, Stop date: 02/03/17 10:38:00 CDT Start Date: 02/03/17 Stop Date: 02/03/17 Status: CompletedPepcid 20 mg oral tablet 20 mg, 1 tab, Route: PO, Drug form: TAB, Q12H, Dosing Weight 43.324, kg, Start date: 02/03/17 21:00:00 CDT, Duration: 30 day, Stop date: 03/05/17 9:00:00 CDT Start Date: 02/03/17 Stop Date: 02/03/17 Status: Discontinuedpropofol (ANES) Route: IV, Drug form: INJ, ONCE, Stop date: 02/03/17 8:12:00 CDT Start Date: 02/03/17 Stop Date: 02/03/17 Status: CompletedReglan 10 mg, Route: IVPB, ONCE, Dosing Weight 43.324, kg, Start date: 02/03/17 10:38: 00 CDT, Stop date: 02/03/17 10:38:00 CDT Start Date: 02/03/17 Stop Date: 02/03/17 Status: Completedrocuronium (ANES) Route: IV, Drug form: INJ, ONCE, Stop date: 02/03/17 8:47:00 CDT Start Date: 02/03/17 Stop Date: 02/03/17 Status: CompletedSenokot 2 tab, Route: PO, Dosing Weight 43.324, kg, Daily, Start date: 02/04/17 9:00:00 CDT, Duration: 30 day, Stop date: 03/05/17 9:00:00 CDT Start Date: 02/04/17 Stop Date: 02/03/17 Status: CanceledSodium Chloride 0.9% IV 1000 mL 1,000 mL, Rate: 75 ml/hr, Infuse over: 13.3 hr, Route: IV, Dosing Weight 43.324 kg, Total Volume: 1,000, Start date: 02/03/17 9:25:00 CDT, Duration: 30 day, Stop date: 03/05/17 9:24:00 CDT Start Date: 02/03/17 Stop Date: 02/03/17 Status: DiscontinuedZofran 4 mg, Route: IV, Drug form: INJ, Q8H, Dosing Weight 43.324, kg, PRN Nausea, Start date: 02/03/17 9:25:00 CDT, Duration: 30 day, Stop date: 03/05/17 9:24:00 CDT Start Date: 02/03/17 Stop Date: 02/03/17 Status: Discontinued Results BLOOD BANK RESULTS Most recent to oldest [Reference Range]: 1 ABO/Rh O POS *Unknown* (01/27/17 11:42 AM) Antibody Scrn Negative (01/27/17 11:42 AM) ELECTROLYTES Most recent to oldest [Reference Range]: 1 Sodium Lvl [135-145 mEq/L] 139 mEq/L (01/27/17 11:42 AM) Potassium Lvl [3.5-5.1 mEq/L] 4.9 mEq/L (01/27/17 11:42 AM) Chloride Lvl [95-109 mEq/L] 104 mEq/L (01/27/17 11:42 AM) CO2 [24-32 mEq/L] 28 mEq/L (01/27/17 11:42 AM) AGAP [10.0-20.0 mEq/L] 11.9 mEq/L (01/27/17 11:42 AM) CHEM PANEL Most recent to oldest [Reference Range]: 1 Creatinine Lvl [0.50-1.40 mg/dL] 0.68 mg/dL (01/27/17 11:42 AM) eGFR 97 mL/min/1.73m2 1 *NA* (01/27/17 11:42 AM) BUN [7-22 mg/dL] 15 mg/dL (01/27/17 11:42 AM) B/C Ratio [6-25] 22 (01/27/17 11:42 AM) Glucose Lvl [70-99 mg/dL] 101 mg/dL *HI* (01/27/17 11:42 AM) Total Protein [6.4-8.4 g/dL] 7.2 g/dL (01/27/17 11:42 AM) Albumin Lvl [3.5-5.0 g/dL] 4.1 g/dL (01/27/17 11:42 AM) Globulin [2.7-4.2 g/dL] 3.1 g/dL (01/27/17 11:42 AM) A/G Ratio [0.7-1.6] 1.3 (01/27/17 11:42 AM) Calcium Lvl [8.5-10.5 mg/dL] 9.6 mg/dL (01/27/17 11:42 AM) ALT [0-65 unit/L] 19 unit/L (01/27/17 11:42 AM) AST [0-37 unit/L] 11 unit/L (01/27/17 11:42 AM) Alk Phos [39-136 unit/L] 129 unit/L (01/27/17 11:42 AM) Bili Total [0.2-1.3 mg/dL] 0.3 mg/dL (01/27/17 11:42 AM) 1Result Comment: The eGFR is calculated using the CKD-EPI formula. In most young , healthy individualsthe eGFR will be >90 mL/min/1.73m2. The eGFR declines with age. An eGFR of 60-89 may be normal in some populations, particularly the elderly, for whom the CKD-EPI formula has not been extensively validated. Use of the eGFR is not recommended in the following populations: Individuals with unstable creatinine concentrations, including patients and those with serious co-morbid conditions. Patients with extremes in muscle mass or diet. The data above are obtained from the National Kidney Disease Education Program ( NKDEP) which additionally recommends that when the eGFR is used in patients with extremes of body mass index for purposesof drug dosing, the eGFR should be multiplied by the estimated BMI.HEMATOLOGY Most recent to oldest [Reference Range]: 1 WBC [3.7-10.4 K/CMM] 6.6 K/CMM (01/27/17 11:42 AM) RBC [4.20-5.40 M/CMM] 4.26 M/CMM (01/27/17 11:42 AM) Hgb [12.0-16.0 g/dL] 13.6 g/dL (01/27/17 11:42 AM) Hct [36.0-48.0 %] 39.5 % (01/27/17 11:42 AM) MCV [80.0-98.0 fL] 92.7 fL (01/27/17 11:42 AM) MCH [27.0-31.0 pg] 31.9 pg *HI* (01/27/17 11:42 AM) MCHC [32.0-36.0 g/dL] 34.4 g/dL (01/27/17 11:42 AM) RDW [11.5-14.5 %] 12.9 % (01/27/17 11:42 AM) Platelet [133-450 K/CMM] 306 K/CMM (01/27/17 11:42 AM) MPV [7.4-10.4 fL] 8.1 fL (01/27/17 11:42 AM) Segs [45.0-75.0 %] 68.4 % (01/27/17 11:42 AM) Lymphocytes [20.0-40.0 %] 24.5 % (01/27/17 11:42 AM) Monocytes [2.0-12.0 %] 5.9 % (01/27/17 11:42 AM) Eosinophils [0.0-4.0 %] 0.7 % (01/27/17 11:42 AM) Basophils [0.0-1.0 %] 0.5 % (01/27/17 11:42 AM) Segs-Bands # [1.5-8.1 K/CMM] 4.5 K/CMM (01/27/17 11:42 AM) Lymphocytes # [1.0-5.5 K/CMM] 1.6 K/CMM (01/27/17 11:42 AM) Monocytes # [0.0-0.8 K/CMM] 0.4 K/CMM (01/27/17 11:42 AM) PT [12.0-14.7 seconds] 12.9 seconds (01/27/17 11:42 AM) INR [0.85-1.17] 0.95 (01/27/17 11:42 AM) PTT [22.9-35.8 seconds] 25.1 seconds (01/27/17 11:42 AM) Immunizations No data available for this section Procedures No data available for this section Social History Social History Type Response Smoking Status Never smoker; Exposure to Tobacco Smoke None; Cigarette Smoking Last 365 Days No; Reg Smoking Cessation Counseling No Assessment and Plan Extracted from: Title: Clinical Document Author: Jamil Zavala MD Date: 02/03/17 PATIENT NAME: MARICHUY CARRERO DATE OF OPERATION/PROCEDURE: 02/03/2017 *_*_* PREOPERATIVE DIAGNOSES: 1. 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 POSTOPERATIVE DIAGNOSES: 1. 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 PROCEDURES PERFORMED: 1. Posterior midline approach to the lumbar spine from L5-S1. 2. LEFT L5-S1 hemilaminotomy, mesial facetectomy, and foraminotomy. 3. Exploration of LEFT S1 perineural cyst. 4. Use of microscope for decompression. 5. Use of radiographs for vertebral level localization. SURGEON: Jamil Zavala MD PATTERN WEAVER: Chris Villareal ANESTHESIA: General endotracheal tube anesthesia. COMPLICATIONS: None. IV FLUID 500 cc URINE OUTPUT: NA ESTIMATED BLOOD LOSS 50 cc INDICATIONS FOR SURGERY: 56 yo F with LEFT S1 synovial or perineural cyst with likely LEFT S1 radiculopathy. Patient has been having LEFT greater than RIGHT leg and back pain for 2 years. MRI shows possible LEFT L5-S1 synovia l cyst versus LEFT S1 perineural cyst with deformation of the LEFT S1 nerve root. On exam, LEFT gasctroc is 4-. We suspected the LEFT leg pain is likely secondary to LEFT L5-S1 synovial cyst with late ral recess stenosis although as it was only visible on one sequence, clear definition is less clear. The left gastrocnemius weakness supports a compressive lesion rather than a perineural cyst. She hahn s failed medication, exercise, and injections for 2 years. We recommend: LEFT L5-S1 hemilaminectomy, mesial facetectomy and foraminotomy, exploration of LEFT L5-S1 region cyst. We discussed the risks and benefits of the procedure. Risks include bleeding, infection, neurologic injury, weakness, numbness, paralysis, cerebrospinal fluid leak, post-laminectomy instability, no imp rovement systems, need for reoperation and possible need for fusion, and even . There is the possibility that this is a perineural cyst and as such very little may be able to be done. The patient expressed understanding of the risks and benefits of procedure and wished to proceed. All questions were answered. No guarantees were made to the outcome of the case. DESCRIPTION OF OPERATION: The patient was appropriately identified with all markers. The patient was brought back by anesthesia and received general endotracheal tube anesthesia with the neck held in neutral position. The sina ent was then dosed with preoperative antibiotics. The patient was then turned prone onto an operating room table with Brian frame. All bony prominences were padded. SCDs were placed on bilateral low er extremities. Confirmation level was performed with fluoroscopy for planning of the incision. The spine was then prepped and draped in sterile standard fashion including alcohol, ChloraPrep and Beta dine scrub and paint. Operative timeout was performed. The incision was planned for a LEFT L5-S1 hemilaminectomy, mesial facetectomy and foraminotomy, exploration of LEFT L5-S1 region cyst. Skin was injected with 0.5% Marcaine with epinephrine. A 10 blade scalpel was then used to make a vertical longitudinal incision spanning the spinous processes from L5 to S1. Bovie cautery was used to deepen the incision through subcutaneous tissue and fascia down to the spinous processes from L5 to S1. A curet was then applied to the lamina and radiographs were taken to confirm vertebral level. A fter radiographic position was confirmed, the posterior elements from the inferior half of L5 to the superior half of S1 were exposed in subperiosteal fashion using Bovie cautery, [place], curettes and ro ngeurs to skeletonize posterior elements, taking care to preserve all facet joint capsules and the overlying muscle attachments. Self-retaining retractors were then placed for exposure. The operating microscope was brought into the field. Decompression was then begun. LEFT L5-S1 hemilaminectomy, mesial facetectomy and foraminotomy was performed sparing the spinous processes and posterior ligamentous structures. These were performed usi ng the pneumatic [employer] drill with a matchstick drill bit, Kerrisons and curets. The traversing S1 nerve root was clearly identified and the cyst was clearly a perineural cyst with thinned dura rather than a compressive synovial cyst. This cyst was not compressed at any level. No attempt was made to unroof or repair the cyst given the thinning of dura that was obvious. The lateral recess and traversing S1 nerve root as well as the foramen and exiting L5 nerve root were free and not compressed. By the end of the decompression, the central canal, foramen, and lateral recesses were palpated and felt to be widely patent with the cyst protected by a covering of gelfoam. A ball-tipped probe was th en passed up along each nerve root through the outer portion foramen and found to be completely free and not compressed. The wound was copiously irrigated with bacitracin irrigation. Hemostasis was achieved with bipolar electrocautery, thrombin-soaked Gelfoam and FloSeal. 1000 mg of vancomycin powder was then placed into the subfascial space. Closure was then commenced. The fascia was closed with 0 Vicryl in interrupted fashion in multiple layers. Dermis was closed with 2-0 Vicryl in interrupted fashion. Skin was approximated Mastisol, Nathan ri-Strips, followed by Telfa. Hypafix dressing was used to secure the dressing. All needle and sponge counts were correct. There were no complications during the surgery. The patient was then carefully rolled supine onto a hospital bed. The patient was revived, extubated and taken to recovery room in stable condition moving 4 extremities postoperatively at baseline [facility]. Dr. Jamil Zavala was scrubbed and present for the entire procedure. We discussed the completion of the case with the patient's family as well as the finding of a perineural cyst. They were very grateful for the care and information. All questions were answered.
--- OUTSIDE RECORDS SUMMARY | 2018-10-12 20:42 | XMS REPORT | Summary of Care ---
:1960 Author Organization [facility] Neuro[facility] Address [address] [place] [address], [address] [place] [address]- Encounter HQ Scottntr_jeff(FIN) [id number] Date(s): 06/26/17 - 06/27/17 [facility] [address] [facility], [address] [place] [phone] Vital Signs No data available for this section Problem List Condition Effective Dates Status Health Status Informant GERD (gastroesophageal reflux Active disease)(Confirmed) Parkinson's disease(Confirmed) Active Vitamin D deficiency1 01/02/15 Active 1Data migrated from [employer] on 02/15/15. Allergies, Adverse Reactions, Alerts Substance [...]
--- OUTSIDE RECORDS SUMMARY | 2018-10-12 20:42 | XMS REPORT | Summary of Care ---
:1960 Author Organization [facility] [place] Address [address] [address]- Encounter HQ Encntr_jeff(FIN) [id number] Date(s): 06/27/17 - 06/27/17 [facility] Outpatient Imaging [address], [address] [place] [phone] Discharge Disposition: Home or Self Care Attending Physician: Jamil Zavala MD Vital Signs No data available for this section Problem List Condition Effective Dates Status Health Status Informant GERD (gastroesophageal reflux Active disease)(Confirmed) Parkinson's disease(Confirmed) Active Vitamin D deficiency1 01/02/15 Active 1Data migrated from [address] on 02/15/15. Allergies, Adverse Reactions, Alerts Substance [...]
--- OUTSIDE RECORDS SUMMARY | 2018-10-12 20:42 | XMS REPORT | Summary of Care ---
:1960 Author Organization [facility] Address [address] [place] [address], [address] [place] [address]- Encounter HQ Scottntr_jeff(FIN) [id number] Date(s): 06/26/17 - 06/27/17 [facility] [address] [facility], [address] [place] [phone] Vital Signs No data available for this section Problem List Condition Effective Dates Status Health Status Informant GERD (gastroesophageal reflux Active disease)(Confirmed) Parkinson's disease(Confirmed) Active Vitamin D deficiency1 01/02/15 Active 1Data migrated from [employer] on 02/15/15. Allergies, Adverse Reactions, Alerts Substance [...]
--- OUTSIDE RECORDS SUMMARY | 2018-10-12 20:42 | XMS REPORT | Summary of Care ---
:1960 Author Organization [facility] Outpatient [facility] [place] Address [address] [place], [place] [address]- Encounter HQ Scottntr_jeff(FIN) [id number] Date(s): 02/07/16 - 02/07/16 [facility] Outpatient Imaging [address] [phone] Discharge Disposition: Home Attending Physician: Hilario Houser DO Vital Signs No data available for this section Problem List Condition Effective Dates Status Health Status Informant Vitamin D deficiency1 01/02/15 Active 1Data migrated from [employer] on 02/15/15. Allergies, Adverse Reactions, Alerts Substance [...]
--- OUTSIDE RECORDS SUMMARY | 2018-10-12 20:42 | XMS REPORT | Summary of Care ---
:1960 Author Organization [facility] Outpatient Imaging [place] Address [address] [address]- Encounter HQ Encntr_alias(FIN) [id number] Date(s): 03/28/17 - 03/28/17 [facility] Outpatient Imaging [address], [address] [place] [address]- [phone] Discharge Disposition: Home or Self Care Attending Physician: Jamil Zavala MD Vital Signs No data available for this section Problem List Condition Effective Dates Status Health Status Informant GERD (gastroesophageal reflux Active disease)(Confirmed) Parkinson's disease(Confirmed) Active Vitamin D deficiency1 01/02/15 Active 1Data migrated from [facility] on 02/15/15. Allergies, Adverse Reactions, Alerts [...]
--- OUTSIDE RECORDS SUMMARY | 2018-10-12 20:42 | XMS REPORT | Summary of Care ---
:1960 Author Organization [facility] Encounter HQ Encntr_jeff(DAKOTA) [id number] Date(s): 11/29/15 - 12/28/15 [facility] Discharge Disposition: Home Attending Physician: Rishi Seaman MD Vital Signs No data available for this section Problem List Condition Effective Dates Status Health Status Informant Vitamin D deficiency1 01/02/15 Active 1Data migrated from [facility] on 02/15/15. Allergies, Adverse Reactions, Alerts Substance [...]
--- OUTSIDE RECORDS SUMMARY | 2018-10-12 20:42 | XMS REPORT | Summary of Care ---
:1960 Author Organization [facility] Encounter HQ Encntr_jeff(DAKOTA) [id number] Date(s): 01/01/16 - 01/30/16 [facility] Discharge Disposition: Home Attending Physician: Rishi Seaman MD Vital Signs No data available for this section Problem List Condition Effective Dates Status Health Status Informant Vitamin D deficiency1 01/02/15 Active 1Data migrated from [facility] on 02/15/15. Allergies, Adverse Reactions, Alerts [...]
--- OUTSIDE RECORDS SUMMARY | 2018-10-12 20:43 | XMS REPORT | Summary of Care ---
:1960 Author Organization [facility] Spine [facility] Address [address] [place] [address] [address] [place] [address]- Encounter HQ Encntr_alimaisha(FIN) [id number] Date(s): 07/16/17 - 07/17/17 [facility] Spine [address] [place] [address] [phone] Vital Signs No data available for this section Problem List Condition Effective Dates Status Health Status Informant GERD (gastroesophageal reflux Active disease)(Confirmed) Parkinson's disease(Confirmed) Active Vitamin D deficiency1 01/02/15 Active 1Data migrated from [facility] on 02/15/15. Allergies, Adverse Reactions, Alerts Substance [...]
--- OUTSIDE RECORDS SUMMARY | 2018-10-12 20:43 | XMS REPORT | Summary of Care ---
:1960 Author Organization [facility] [place] Address [address] [address], [address] [place] [address]- Encounter HQ Cindy_jeff(FIN) [id number] Date(s): 07/29/17 - 07/29/17 [facility] [address] [address], [address] [place], [place] [address] [phone] Discharge Disposition: Home or Self Care Attending Physician: Jamil Zavala MD Referring Physician: Hilario Houser DO Vital Signs Most recent to oldest [Reference Range]: 1 Height 152.4 cm (07/29/17 12:45 PM) Weight 43.409 kg (07/29/17 12:45 PM) Body Mass Index 18.69 m2 (07/29/17 12:45 PM) Problem List Condition Effective Dates Status Health Status Informant GERD (gastroesophageal reflux Active disease)(Confirmed) Parkinson's disease(Confirmed) Active Vitamin D deficiency1 01/02/15 Active 1Data migrated from [facility] on 02/15/15. Allergies, Adverse Reactions, Alerts [...]
--- OUTSIDE RECORDS SUMMARY | 2018-10-12 20:43 | XMS REPORT | Summary of Care ---
:1960 Author Organization [facility] Neurosurgery [facility] Address [address] [place] [address], [address] [place] [address]- Encounter HQ Cindy_jeff(FIN) [id number] Date(s): 10/08/17 - 10/09/17 [facility] [address] [address], [address] [place] [address] [phone] Vital Signs No data available for this section Problem List Condition Effective Dates Status Health Status Informant GERD (gastroesophageal reflux Active disease)(Confirmed) Parkinson's disease(Confirmed) Active Vitamin D deficiency1 01/02/15 Active 1Data migrated from [facility] on 02/15/15. Allergies, Adverse Reactions, Alerts Substance [...] Days No; Reg Smoking Cessation Counseling No entered on: 10/21/17 Assessment and Plan No data available for this section
--- OUTSIDE RECORDS SUMMARY | 2018-10-12 20:43 | XMS REPORT | Summary of Care ---
:1960 Author Organization [facility] Outpatient Imaging [place] Address [address] [address]- Encounter HQ Scottntr_jeff(FIN) [id number] Date(s): 10/01/17 - 10/01/17 [facility] Outpatient Imaging [address], [address] [place] [address]- [phone] Encounter Diagnosis Postlaminectomy syndrome, not elsewhere classified (Final) - 10/06/17 Other intervertebral disc degeneration, lumbar region (Final) - Spinal stenosis, lumbar region without neurogenic claudication (Final) - Spinal stenosis, lumbosacral region (Final) - Discharge Disposition: Home or Self Care Attending Physician: Joseph Cuello MD Vital Signs No data available for this section Problem List Condition Effective Dates Status Health Status Informant GERD (gastroesophageal reflux Active disease)(Confirmed) Parkinson's disease(Confirmed) Active Vitamin D deficiency1 01/02/15 Active 1Data migrated from [facility] on 02/15/15. Allergies, Adverse Reactions, Alerts [...]
--- OUTSIDE RECORDS SUMMARY | 2018-10-12 20:43 | XMS REPORT | Summary of Care ---
:1960 Author Organization [facility] Address [address] [place], [place] [address]- Encounter HQ Cindy_jeff(FIN) [id number] Date(s): 01/02/18 - 01/02/18 [facility] [address] [place] [address]- [place] Discharge Disposition: Home or Self Care Attending Physician: Antonette Low MD Referring Physician: Antonette Low MD Vital Signs No data available for this section Problem List Condition Effective Dates Status Health Status Informant GERD (gastroesophageal reflux Active disease)(Confirmed) Parkinson's disease(Confirmed) Active Vitamin D deficiency1 01/02/15 Active 1Data migrated from [facility] on 02/15/15. Allergies, Adverse Reactions, Alerts [...]
--- OUTSIDE RECORDS SUMMARY | 2018-10-12 20:43 | XMS REPORT | Summary of Care ---
:1960 Author Name IGNACIO NG M.D. Address Unavailable Unavailable , Care Team Providers Name Role Phone IGNACIO NG M.D. Unavailable Unavailable ARIEL AGUSTIN M.D. Unavailable Unavailable Unavailable Unavailable Unavailable Functional Status Name Dates Details Functional status health issues are not documented Status: Name Dates Details Cognitive status health issues are not documented Status: Problems Name Dates Details Limb pain (729.5, M79.609) Status: Active Peripheral vascular disease (443.9, I73.9) Status: Active Parkinson's disease (332.0, G20) Status: Active Medications Name Dates Details Diclofenac Sodium 1 % Transdermal Gel APPLY TO UPPER EXTREMITIES, 2 GM OF GEL TO AFFECTED AREA 4 TIMES DAILY. DO NOT APPLY MORE THAN 8 GM DAILY TO ANY ONE AFFECTED JOINT. Quantity: 3 Refills: 2 ARIEL AGUSTIN M.D. Start : 14-Mar-2017 Active 100 GM Tube Neupro 2 MG/24HR Transdermal Patch 24 Hour 4mg /24hrs Refills: 0 Start : 27-Nov-2017 Active Rasagiline Mesylate 1 MG Oral Tablet TAKE 1 TABLET DAILY Refills: 0 Start : 27-Nov-2017 Active Neupro 8 MG/24HR Transdermal Patch 24 Hour Apply 1 Patch Every 24 hours as directed. Quantity: 30 Refills: 6 IGNACIO NG M.D. Start : 12-Aug-2018 Active Allergies and Adverse Reactions Name Dates Details TraMADol HCl TABS (Allergy) Status: Active Past Medical History Name Dates Details History of Chronic GERD (530.81, K21.9) Status: Resolved History of vitamin D deficiency (V12.1, Z86.39) Status: Resolved Procedures Procedure Dates Details History of Back surgery Completed Immunization Name Dates Details Immunizations not documented Social History Name Dates Details - Status: Name Dates Details Never smoker Vital Signs Date Test Result Details No Known Vitals to report Results Date Description Value Details Results not documented Plan of Care Name Dates Details Planned Observations Planned Goals not documented Interventions Provided Medication ChangesNeupro 8 MG/24HR Transdermal Patch 24 Hour - Renew Instructions Name Dates Details Instructions not documented Encounters Appointment; ARIEL AGUSTIN M.D. On: 14-Mar-2017 15:45 Encounter Diagnosis: Problem not documented Appointment; HOSSEIN LAYTON M.D. On: 30-May-2017 10:30 Encounter Diagnosis: Problem not documented Appointment; MARIA LUISA, On: 27-Oct-2017 11:00 Encounter Diagnosis: Problem not documented Appointment; HOSSEIN LAYTON M.D. On: 11-Nov-2017 9:30 Encounter Diagnosis: Problem not documented Appointment; IGNACIO NG M.D. On: 27-Nov-2017 13:00 Encounter Diagnosis: Problem not documented
--- OUTSIDE RECORDS SUMMARY | 2018-10-12 20:43 | XMS REPORT | Summary of Care ---
:1960 Author Organization [facility] Neurosurgery [facility] Address [address] [place] [address], [address] [place] [address]- Encounter HQ Encntr_jeff(FIN) [id number] Date(s): 07/07/17 - 07/08/17 [facility] [address] [address] [place], [place] [address] [phone] Vital Signs No data available for this section Problem List Condition Effective Dates Status Health Status Informant GERD (gastroesophageal reflux Active disease)(Confirmed) Parkinson's disease(Confirmed) Active Vitamin D deficiency1 01/02/15 Active 1Data migrated from [employer] on 02/15/15. Allergies, Adverse Reactions, Alerts Substance [...]
--- OUTSIDE RECORDS SUMMARY | 2018-10-12 20:43 | XMS REPORT | Summary of Care ---
:1960 Author Organization [facility] Address [address] [place], [place] [address]- Encounter HQ Encntr_alias(FIN) [id number] Date(s): 06/22/15 - 06/22/15 [facility] [address] [place] [address]- [employer] Discharge Disposition: Home Attending Physician: Britton Live MD Referring Physician: Britton Live MD Vital Signs No data available for this section Problem List No data available for this section Allergies, Adverse Reactions, Alerts No data available for this section Medications No data available for this section Results No data available for this section Immunizations No data available for this section Procedures No data available for this section Social History No data available for this section Assessment and Plan No data available for this section
--- OUTSIDE RECORDS SUMMARY | 2018-10-12 20:43 | XMS REPORT | Summary of Care ---
:1960 Author Organization [facility] Address [address] [place], [place] [address]- Encounter HQ Encntr_alias(FIN) [id number] Date(s): 03/03/15 - 03/03/15 [facility] [address] [place] [address]- [phone] Discharge Disposition: Home Attending Physician: Fe Day MD Referring Physician: Fe Day MD Vital Signs No data available for [...]
--- OUTSIDE RECORDS SUMMARY | 2018-10-12 20:43 | XMS REPORT | Summary of Care ---
:1960 Author Organization [facility] Neurosurgery [facility] Address [address] [place] [address], [address] [place] [address]- Encounter HQ Cindy_jeff(FIN) [id number] Date(s): 10/21/17 - 10/21/17 [facility] [address] [address] [place] [address] [phone] Discharge Disposition: Home or Self Care Attending Physician: Jamil Zavala MD Referring Physician: Hilario Houser DO Vital Signs Most recent to oldest [Reference Range]: 1 Height 157.48 cm (10/21/17 3:01 PM) Blood Pressure [90-140/60-90 mmHg] 131/82 mmHg (10/21/17 3:01 PM) Peripheral Pulse Rate [60-100 bpm] 84 bpm (10/21/17 3:01 PM) Weight 61.875 kg (10/21/17 3:01 PM) Body Mass Index 24.95 m2 (10/21/17 3:01 PM) Problem List Condition Effective Dates Status Health Status Informant GERD (gastroesophageal reflux Active disease)(Confirmed) Parkinson's disease(Confirmed) Active Vitamin D deficiency1 01/02/15 Active 1Data migrated from [employer] on 02/15/15. Allergies, Adverse Reactions, Alerts Substance [...]
[2018-10-12] MEDS ORDERED: NA CHLORIDE 0.9% 1,000 ML ONE (21:43)
[2018-10-12] MEDS ORDERED: ONDANSETRON 4 MG/2 ML VIAL ONE (21:55)
[2018-10-12] MEDS ORDERED: FAMOTIDINE 20 MG/2 ML VIAL IV ONE (21:55)
[2018-10-12 22:00] LABS: Absolute Lymphocytes (CBC) 0.9 K/uL (0.7-4.9); Absolute Monocytes 0.2 K/uL (0.1-1.3); Absolute Neutrophil 6.4 K/uL (1.8-8.0); Basophils % 0.3 % (0-1.3); Hematocrit 42.9 % (36.0-45.0); Lymphocytes % 12.1 % (15.3-44.8); MPV 9.3 fL (7.6-11.3)
[2018-10-12 22:03] LABS: Protime INR 1.08
[2018-10-12 22:15] LABS: ALT/SGPT 32 U/L (12-78); AST/SGOT 18 U/L (15-37); Albumin 4.5 g/dL (3.4-5.0); Alkaline Phosphatase 143 U/L (45-117); BUN Blood Urea Nitrogen 14 mg/dL (7-18); Bicarbonate 29 mmol/L (21-32); Bilirubin Direct 0.2 mg/dL (0-0.2); Bilirubin Total 0.6 mg/dL (0.2-1.0); Glucose Level 164 mg/dL (74-106); Lipase 72 U/L (73-393); Magnesium 2.2 mg/dL (1.8-2.4); NT PRO-BNP 20 pg/mL (<125); Potassium 3.7 mmol/L (3.5-5.1); Protein, Total 7.6 g/dL (6.4-8.2); Sodium Level 140 mmol/L (136-145); Troponin (Emerg Dept Use Only) < 0.02 ng/mL (0.0-0.045)
[2018-10-12 23:08] LABS: Urine Blood NEGATIVE (NEG); Urine Glucose NEGATIVE (NEG); Urine Protein 2+ (NEG); Urine pH 7.5 (5.0-7.0)
[2018-10-12 23:36] LABS: Urine Bacteria <20 /HPF (<20); Urine Culture Reflex Order REFLEXED; Urine Mucus MOD /HPF (NONE SEEN); Urine RBC NONE SEEN /HPF (NONE SEEN)
[2018-10-13] MEDS ORDERED: NA CHLORIDE 0.9% 1,000 ML ONE (02:47)
--- NOTE | 2018-10-13 03:08 | ER ---
Nurse's Notes [facility] Name: Chelsi Martinez Age: 57 yrs Sex: Female : 1960 Arrival Date: 10/12/2018 Time: 20:40 Bed 20 Private MD: Diagnosis: Nausea and vomiting;Weakness-general Presentation: 10/12 21:08 Presenting complaint: pt's daughter states pt has been vomiting x 1 week she did not bb want to come to the ED but now she is unable to hold anything down. Transition of care: patient was not received from another setting of care. 21:08 Method Of Arrival: Ambulatory bb 21:10 Onset of symptoms was October 06, 2018. Risk Assessment: Do you want to hurt yourself bb or someone else? Patient reports no desire to harm self or others. Initial Sepsis Screen: Does the patient meet any 2 criteria? No. Patient's initial sepsis screen is negative. Does the patient have a suspected source of infection? No. Patient's initial sepsis screen is negative. Care prior to arrival: None. 21:10 Acuity: RUI 3 bb Historical: - Allergies: 21:11 No Known Allergies; bb - Home Meds: 21:11 Neupro transdermal transdermal [Active]; bb - PMHx: 21:11 Parkinsons; bb - PSHx: 21:11 back surgery; bb - Immunization history:: Adult Immunizations up to date. - Social history:: Smoking status: Patient/guardian denies using tobacco. - Ebola Screening: : No symptoms or risks identified at this time. Screenin:35 Abuse screen: Denies threats or abuse. Denies injuries from another. Nutritional rv screening: No deficits noted. Tuberculosis screening: No symptoms or risk factors identified. Fall Risk None identified. Assessment: 21:33 General: Appears in no apparent distress. Behavior is calm, cooperative. Pain: Denies rv pain. Neuro: Level of Consciousness is awake, alert, obeys commands, Oriented to person, place, time, situation. Cardiovascular: Capillary refill < 3 seconds. Respiratory: Airway is patent. GI: Parent/caregiver reports the patient having vomiting. : No signs and/or symptoms were reported regarding the genitourinary system. EENT: No signs and/or symptoms were reported regarding the EENT system. Derm: Skin is intact. Musculoskeletal: Parent/caregiver report the patient having weakness in generalized. 10/13 00:46 Reassessment: Patient and/or family updated on plan of care and expected duration. Pain tl3 level reassessed. Patient is alert, oriented x 3, equal unlabored respirations, skin warm/dry/pink. pt resting quietly, finished oral contrast at 2345, CT aware. 02:11 Reassessment: Patient appears in no apparent distress at this time. No changes from rv previously documented assessment. Patient and/or family updated on plan of care and expected duration. Pain level reassessed. Patient is alert, oriented x 3, equal unlabored respirations, skin warm/dry/pink. 03:42 Reassessment: Patient appears in no apparent distress at this time. Patient and/or ed1 family updated on plan of care and expected duration. Pain level reassessed. Patient is alert, oriented x 3, equal unlabored respirations, skin warm/dry/pink. No vomiting noted. Pt able to tolerate PO fluids Patient denies pain at this time. Vital Signs: 10/12 21:11 BP 126 / 77; Pulse 71; Resp 16 S; Temp 97.9(O); Pulse Ox 100% on R/A; Weight 40.19 kg bb (M); Height 5 ft. 2 in. (157.48 cm) (R); Pain 0/10; 10/13 00:46 BP 100 / 58; Pulse 76; Resp 18; Pulse Ox 97% on R/A; tl3 01:00 BP 101 / 57 LA; Pulse 76; Resp 12 S; Pulse Ox 98% on R/A; rv 01:52 BP 127 / 72; Pulse 74; Resp 16; Pulse Ox 99% on R/A; mt 03:42 BP 113 / 71; Pulse 80; Resp 17; Temp 97.1(O); Pulse Ox 100% on R/A; Pain 0/10; ed1 10/12 21:11 Body Mass Index 16.20 (40.19 kg, 157.48 cm) bb ED Course: 10/12 20:40 Patient arrived in ED. es 21:10 Triage completed. bb 21:11 Arm band placed on left wrist. Patient placed in an exam room, on a stretcher, on pulse bb oximetry. Family accompanied patient. 21:25 Inserted saline lock: 20 gauge in left antecubital area, using aseptic technique. Blood rv collected. 21:29 Sudhir Jacobs PA is PHCP. cp 21:29 Sudhir Hernandez MD is Attending Physician. cp 21:35 Patient has correct armband on for positive identification. Placed in gown. Bed in low rv position. Call light in reach. Side rails up X2. Adult w/ patient. Pulse ox on. NIBP on. 22:20 XRAY Chest (1 view) In Process Unspecified. EDMS 03/05 01:[address] via wheelchair. kw1 01:28 CT completed. Patient tolerated procedure well. Patient moved back from CT. kw1 01:45 Sarina Rivers, RN is Primary Nurse. ed1 02:13 CT Abd/Pelvis - W/Contrast: give oral contrast In Process Unspecified. EDMS 03:42 No provider procedures requiring assistance completed. IV discontinued, intact, ed1 bleeding controlled, No redness/swelling at site. Pressure dressing applied. Administered Medications: 0304 21:50 Drug: Zofran 4 mg Route: IVP; Site: left antecubital; rv 23:19 Follow up: Response: No adverse reaction rv 21:50 Drug: Pepcid 20 mg Route: IVP; Site: left antecubital; rv 23:18 Follow up: Response: No adverse reaction rv 03/05 02:41 Drug: NS 0.9% 1000 ml Route: IV; Rate: 1 bolus; Site: left antecubital; ed1 03:41 Follow up: IV Status: Completed infusion; IV Intake: 1000ml ed1 Intake: 03:41 IV: 1000ml; Total: 1000ml. ed1 Outcome: 03:07 Discharge ordered by MD. cp 03:42 Discharged to home ambulatory, with family. ed1 03:42 Condition: good 03:42 Discharge instructions given to patient, family, Instructed on discharge instructions, follow up and referral plans. medication usage, Demonstrated understanding of instructions, follow-up care, medications, Prescriptions given X 3. 03:43 Patient left the ED. ed1 Signatures: Dispatcher [employer] EDWI Shani Weber Brenda, RN RN bb Sarina Rivers RN RN ed1 Sudhir Jacobs PA PA cp Thompson, [place] mt Wilhelm, Kimberly kw1 Julita Fountain RN RN tl3 Jan Fitzpatrick, RN RN rv
--- NOTE | 2018-10-13 03:08 | EDPHYS ---
Physician Documentation [facility] Name: Chelsi Martinez Age: 57 yrs Sex: Female : 1960 Arrival Date: 10/12/2018 Time: 20:40 Bed 20 Private MD: ED Physician Sudhir Hernandez HPI: 10/12 21:40 This 57 yrs old Female presents to ER via Ambulatory with complaints of cp Weakness, CHILLS. 21:40 The patient presents to the emergency department with weakness of the entire body, cp generalized weakness, that is moderate, a speech or higher order brain function problem, none, difficulty standing, the patient is generally weak, difficult walking, the patient is generally weak. 21:40 Onset: The symptoms/episode began/occurred gradually. Associated signs and symptoms: cp Pertinent positives: intermittent vomiting times 1 week, decreased appetite, Pertinent negatives: altered mental status, fever, neck stiffness. Patient's baseline: Neuro: alert and fully oriented, Motor: no deficits, Ambulation: walks without assistance, Speech: normal. Historical: - Allergies: 21:11 No Known Allergies; bb - Home Meds: 21:11 Neupro transdermal transdermal [Active]; bb - PMHx: 21:11 Parkinsons; bb - PSHx: 21:11 back surgery; bb - Immunization history:: Adult Immunizations up to date. - Social history:: Smoking status: Patient/guardian denies using tobacco. - Ebola Screening: : No symptoms or risks identified at this time. ROS: 21:45 Constitutional: Positive for chills, poor PO intake, Negative for body aches, fever. cp 21:45 Eyes: Negative for injury, pain, redness, and discharge. cp 21:45 ENT: Negative for drainage from ear(s), ear pain, sore throat, difficulty swallowing, difficulty handling secretions. 21:45 Cardiovascular: Negative for chest pain, edema, palpitations. 21:45 Respiratory: Negative for cough, shortness of breath, wheezing. 21:45 Abdomen/GI: Positive for nausea and vomiting, anorexia, Negative for abdominal pain, diarrhea, constipation, black/tarry stool, rectal bleeding. 21:45 : Negative for urinary symptoms. 21:45 Skin: Negative for cellulitis, rash. 21:45 Neuro: Positive for headache, general weakness, Negative for altered mental status, dizziness, syncope. 21:45 All other systems are negative. Exam: 21:50 Constitutional: The patient appears in no acute distress, alert, awake, cp non-diaphoretic, non-toxic, well developed, well nourished. 21:50 Head/Face: Normocephalic, atraumatic. cp 21:50 Eyes: Periorbital structures: appear normal, Pupils: equal, round, and reactive to light and accomodation, Extraocular movements: intact throughout, Conjunctiva: normal, no exudate, no injection, Sclera: no appreciated abnormality, Lids and lashes: appear normal, bilaterally. 21:50 ENT: External ear(s): are unremarkable, Ear canal(s): are normal, clear, TM's: bulging, is not appreciated, bilaterally, dullness, bilaterally, erythema, is not appreciated, bilaterally, Nose: is normal, Mouth: Lips: dry, Oral mucosa: dry, Posterior pharynx: Airway: no evidence of obstruction, patent, Tonsils: are normal in appearance, swelling, is not appreciated, erythema, is not appreciated, exudate, is not appreciated. 21:50 Neck: ROM/movement: is normal, is supple, without pain, no range of motions limitations, no meningismus, no nuchal rigidity. 21:50 Chest/axilla: Inspection: normal, Palpation: is normal, no crepitus, no tenderness. 21:50 Cardiovascular: Rate: normal, Rhythm: regular, Edema: is not appreciated, JVD: is not appreciated. 21:50 Respiratory: the patient does not display signs of respiratory distress, Respirations: normal, no use of accessory muscles, no retractions, no splinting, no tachypnea, labored breathing, is not present, Breath sounds: are clear throughout, no decreased breath sounds, no stridor, no wheezing. 21:50 Abdomen/GI: Inspection: abdomen appears normal, Bowel sounds: active, all quadrants, Palpation: soft, in all quadrants, mild abdominal tenderness, in the epigastric area, rebound tenderness, is not appreciated, voluntary guarding, is not appreciated, involuntary guarding, is not appreciated. 21:50 Back: pain, is absent, ROM is normal. 21:50 Skin: cellulitis, is not appreciated, no rash present. 21:50 Neuro: Orientation: to person, place \T\ time. Mentation: is normal, Cerebellar function: is grossly normal, Motor: moves all fours, general weakness w/o focal deficits, Sensation: is normal. 22:05 ECG was reviewed by the Attending Physician. Vital Signs: 21:11 BP 126 / 77; Pulse 71; Resp 16 S; Temp 97.9(O); Pulse Ox 100% on R/A; Weight 40.19 kg bb (M); Height 5 ft. 2 in. (157.48 cm) (R); Pain 0/10; 10/13 00:46 BP 100 / 58; Pulse 76; Resp 18; Pulse Ox 97% on R/A; tl3 01:00 BP 101 / 57 LA; Pulse 76; Resp 12 S; Pulse Ox 98% on R/A; rv 01:52 BP 127 / 72; Pulse 74; Resp 16; Pulse Ox 99% on R/A; mt 03:42 BP 113 / 71; Pulse 80; Resp 17; Temp 97.1(O); Pulse Ox 100% on R/A; Pain 0/10; ed1 10/12 21:11 Body Mass Index 16.20 (40.19 kg, 157.48 cm) bb MDM: 10/12 21:29 Patient medically screened. 10/13 03:00 Data reviewed: vital signs, nurses notes, lab test result(s), EKG, radiologic studies, cp CT scan, and as a result, I will discharge patient. 03:00 Response to treatment: the patient's symptoms have mildly improved after treatment, cp VSS. Vomiting resolved in ED and nausea improved. Patient observed tolerating po fluids, and as a result, I will discharge patient. 10/12 21:31 Order name: Glucose, Ancillary Testing; Complete Time: 21:40 EDMS 10/12 21:42 Order name: Basic Metabolic Panel; Complete Time: 23:06 10/12 23:48 Interpretation: Normal except: GLUC 164; GFR 85. cp 10/12 21:42 Order name: CBC with Diff; Complete Time: 23:06 cp 10/12 23:49 Interpretation: Normal except: NADYA% 84.6; LYM% 12.1; MN% 3.0. cp 10/12 21:42 Order name: LFT's; Complete Time: 23:06 cp 10/12 21:42 Order name: Magnesium; Complete Time: 23:06 cp 03/04 21:42 Order name: NT PRO-BNP; Complete Time: 23:06 cp 03/04 21:42 Order name: PT-INR; Complete Time: 23:06 cp 03/ 21:42 Order name: Troponin (emerg Dept Use Only); Complete Time: 23:06 cp 03/04 21:42 Order name: Lipase; Complete Time: 23:06 cp / 21:42 Order name: Urine Microscopic Only; Complete Time: 23:48 cp 10/12 22:48 Order name: Urine Dipstick--Ancillary (enter results); Complete Time: 23:48 ms 10/12 23:30 Order name: Urine --Ancillary (enter results); Complete Time: 23:48 ms 10/12 23:37 Order name: Urine Culture EDMS 10/12 21:42 Order name: XRAY Chest (1 view) cp 10/12 21:42 Order name: EKG; Complete Time: 21:43 cp 10/12 21:42 Order name: Cardiac monitoring; Complete Time: 21:51 cp /04 21:42 Order name: EKG - Nurse/Tech; Complete Time: 21:51 cp 04 21:42 Order name: IV Saline Lock; Complete Time: 21:51 cp /04 21:42 Order name: Labs collected and sent; Complete Time: 21:51 cp /04 21:42 Order name: O2 Per Protocol; Complete Time: 21:51 cp /04 21:42 Order name: O2 Sat Monitoring; Complete Time: 21:51 cp /04 21:42 Order name: Urine Dipstick-Ancillary (obtain specimen); Complete Time: 23:19 cp /04 21:42 Order name: Urine Test (obtain specimen); Complete Time: 23:19 cp /04 23:07 Order name: CT Abd/Pelvis - W/Contrast: give oral contrast cp 10/13 02:33 Order name: PO challenge; Complete Time: 03:37 cp EC/04 22:05 Rate is 79 beats/min. Rhythm is regular. VT interval is normal. QRS interval is normal. cp QT interval is prolonged at 426 msec. Interpreted by me. Reviewed by me. Administered Medications: 21:50 Drug: Zofran 4 mg Route: IVP; Site: left antecubital; rv 23:19 Follow up: Response: No adverse reaction rv 21:50 Drug: Pepcid 20 mg Route: IVP; Site: left antecubital; rv 23:18 Follow up: Response: No adverse reaction rv 10/13 02:41 Drug: NS 0.9% 1000 ml Route: IV; Rate: 1 bolus; Site: left antecubital; ed1 03:41 Follow up: IV Status: Completed infusion; IV Intake: 1000ml ed1 Disposition: 10/13/18 03:07 Discharged to Home. Impression: Nausea and vomiting, Weakness - general. - Condition is Stable. - Discharge Instructions: Dehydration, Adult, Nausea and Vomiting, Adult, Weakness. - Prescriptions for Zofran 4 mg Oral Tablet - take 1 tablet by ORAL route every 12 hours As needed; 20 tablet. Phenergan 25 mg Rectal Suppository - insert 1 suppository by RECTAL route every 6 hours As needed; 12 suppository. Pepcid 20 mg Oral Tablet - take 1 tablet by ORAL route every 12 hours for 10 days; 20 tablet. - Medication Reconciliation Form, Thank You Letter, Antibiotic Education, Prescription Opioid Use form. - Follow up: Private Physician; When: 1 - 2 days; Reason: Recheck today's complaints. - Problem is new. - Symptoms have improved. Addendum: 10/14/2018 11:10 Co-signature as Attending Physician, Sudhir Hernandez MD I agree with the assessment and c hahn plan of care. Signatures: Dispatcher [employer] [facility] Sudhir Hernandez MD MD cha Ballard, Brenda RN RN Sarina Moreira RN RN ed1 Sudhir Jacobs PA PA cp Vicente, Ronaldo, RN RN rv Corrections: (The following items were deleted from the chart) 10/12 23:24 22:49 URINE --ANCILLARY+UC.LAB.BRZ ordered. [facility] 10/13 03:43 03:07 10/13/2018 03:07 Discharged to Home. Impression: Nausea and vomiting; Weakness - ed1 general. Condition is Stable. Forms are Medication Reconciliation Form, Thank You Letter, Antibiotic Education, Prescription Opioid Use. Follow up: Private Physician; When: 1 - 2 days; Reason: Recheck today's complaints. Problem is new. Symptoms have improved. [place] 10/14 01:30 10/11 21:40 This 57 yrs old Female presents to ER via Ambulatory with cp complaints of Weakness, CHILLS. cp
[2018-10-13 03:53] VITALS: BP 113/71; TEMP 97.1; O2SAT 100
--- NOTE | 2018-10-13 08:21 | RAD REPORT ---
EXAM DESCRIPTION: Sivan Single View10/12/2018 10:20 pm CLINICAL HISTORY: Abdominal pain COMPARISON: 2017 FINDINGS: The lungs appear clear of acute infiltrate. The heart is normal size IMPRESSION: No acute abnormalities displayed
--- NOTE | 2018-10-13 10:28 | RAD REPORT ---
EXAM DESCRIPTION: CT - Abdomen Pelvis W Contrast - 10/13/2018 2:51 am CLINICAL HISTORY: The patient is 57 years old and is Female; nausea/vomiting TECHNIQUE: Axial computed tomography images of the abdomen and pelvis with intravenous contrast. S agittal and coronal reformatted images were created and reviewed. This CT exam was performed using one or more of the following dose reduction techniques: automated exposure control, adjustment of t he mA and/or kV according to patient size, and/or use of iterative reconstruction technique. COMPARISON: None. FINDINGS: LUNG BASES: Lung bases are clear. HEART: Visualized heart is unremarkable. ABDOMEN: LIVER: Unremarkable. No mass. GALLBLADDER AND BILE DUCTS: Unremarkable. No calcified stones. No ductal dilation. PANCREAS: Unremarkable. No mass. No ductal dilation. SPLEEN: Unremarkable. No splenomegaly. ADRENALS: Unremarkable. No mass. KIDNEYS AND URETERS: Bilateral renal subcentimeter hypodensities, too small to characterize by CT criteria, likely cysts. No hydronephrosis. STOMACH AND BOWEL: Enteric contrast is seen throughout the small bowel and proximal large bowel. N o obstruction or perforation. No mucosal thickening. PELVIS: APPENDIX: No findings to suggest acute appendicitis. BLADDER: Unremarkable. No mass. REPRODUCTIVE: Status post hysterectomy. ABDOMEN and PELVIS: INTRAPERITONEAL SPACE: Unremarkable. No free air. No significant fluid collection. BONES/JOINTS: Advanced osteopenia, multilevel changes and dextroscoliosis. No acute fracture. No dislocation. SOFT TISSUES: Unremarkable. VASCULATURE: Unremarkable. No abdominal aortic aneurysm. LYMPH NODES: Unremarkable. No enlarged lymph nodes. IMPRESSION: No acute abdominal or pelvic abnormality. Electronically signed by: Roc Conrad DO 10/13/2018 2:19 AM LIQUEFACTION SUPERVISOR Due to temporary technical issues with the PACS/Fluency reporting system, reports are being signed by the in house radiologist as a courtesy to ensure prompt reporting. The interpreting radiologist is f ully responsible for the content of the report.
--- NOTE | 2018-10-13 10:31 | EKG ---
Test Date: 2018-10-12 Test Time: 21:55:03 [facility]: [facility] MEASUREMENT RESULTS: Intervals: Rate: 79 NC: 160 QRSD: 80 QT: 426 QTc: 488 [place]: P: 84 NC: 160 QRS: 64 T: 71 INTERPRETIVE STATEMENTS: Normal sinus rhythm Prolonged QT Abnormal ECG Compared to ECG 01/14/2017 07:23:23 Prolonged QT interval now present Electronically Signed On 10-13-18 10:29:23 MOLD FILLING OPERATOR by Mark Mata
== END 2018-10-13 03:43 | disposition home or self-care (01) ==
LOC: ER 20:38
DX: R53.1 Weakness (principal); G20 Parkinson's disease
CPT/HCPCS: 36415; 71045; 74177; 80048; 80076; 81003; 81015; 81025; 82962; 83690; 83735; 83880; 84484; 85025; 85610; 87086; 87088; 93005; 96361; 96374; 96375; 99284; J2405; J7030; Q9967

== ENCOUNTER 2020-01-20 23:51 | Emergency (ER) | payer OTHER ==
--- OUTSIDE RECORDS SUMMARY | 2020-01-20 23:53 | XMS REPORT | Clinical Summary ---
:1960 Author Organization [facility] Address [address] [place] [address] Care Team Providers Name Role Phone Igor Seaman Primary Care Provider Allergies Not on File Medications Not on file Active Problems Not on file Social History Tobacco Use Types Packs/Day Years [...] CANCER SCREENING 10/18/1980 BREAST CANCER SCREENING 10/18/2009 COLONOSCOPY SCREENING 10/18/2009 SHINGLES VACCINES (#1) 10/18/2009 INFLUENZA VACCINE 03/11/2020 Results Not on fileafter 01/19/2019 Insurance Payer Benefit Plan / Subscriber ID Effective Dates Phone Addre ss Type Group [facility] [employer] [facility] xxxxxxxxxxxx 2013-Presen Exchange CHOICE EXCHANGE EXCHANGE t MARK[employer]ACE Advance Directives For more information, please contact: [phone] Type Date Recorded 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
--- OUTSIDE RECORDS SUMMARY | 2020-01-20 23:54 | XMS REPORT | Continuity of Care Document ---
:1960 Author Organization [employer] Care Team Providers Name Role Phone [employer] Unavailable Un available Problems Problem Status Onset Classification Date Comments Sourc e Date Reported PARKINSONS DISEASE Active M H [address] Postlaminectomy 01/07/2018 OPID syndrome, not [address] [place] elsewhere classified M54.16 - Active OPID "RADICULOPATHY, 017 [place] LUMBAR REGION" UNK Active [address] 017 G89.4 - CHRONIC Active O PID PAIN SYNDROME 016 [place] PARKINSON Active [address] TREMOR / LEFT SIDE Active [facility] [place] WEAKNESS 015 [place] / LEFT SIDDE Active [place] WEAKNESS 015 Vitamin D Active Problem 01/27/2018 Data Mischer deficiency 015 migrated Neuro, (disorder) from [facility] [place], on 02/15/15. 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, lumbar region Spinal stenosis, 01/07/2018 OPID lumbar region [place] without neurogenic claudication Spinal stenosis, 01/07/2018 OPID lumbosacral region [place] LT LEG/ARM UDU PANCHO Active M H [facility] [place] LEG/ARM Active [facility] [place] SPONDYLOSIS W/O Active [place] MYELOPATHY OR RADICULOPA RADICULOPATHY, Active [place] LUMBAR REGION Medications Medication Details Route Status Patient Ordering Order Source Instructions Provider Date Senokot 2 tab, Route: No Longer PO, Dosing Active 2016 [facility] Weight 43.324, kg, Daily, Start date: 02/04/17 9:00:00 CDT, Duration: 30 day, Stop date: 03/05/17 9:00:00 CDT heparin sodium, 5,000 unit, No Longer porcine 2500 Route: SUB-Q, Active 2016 [facility] UNT/ML Injectable Drug form: INJ, Solution Q12H, Dosing Weight 43.324, kg, Start date: 02/04/17 8:00:00 CDT, Duration: 30 day, Stop date: 03/05/17 21:00:00 CDT Famotidine 20 MG 20 mg, 1 tab, Inactive Oral Tablet Route: PO, Drug 2016 [place] [Pepcid] form: TAB, Q12H, Dosing Weight 43.324, kg, Start date: 02/03/17 21:00:00 CDT, Duration: 30 day, Stop date: 03/05/17 9:00:00 CDT Docusate Sodium 100 mg, 1 cap, Inactive 100 MG Oral Route: PO, BID, 2016 [place] Capsule [Colace] Dosing Weight 43.324, kg, Start date: 02/03/17 17:00:00 CDT, Duration: 30 day, Stop date: 03/05/17 9:00:00 CDT Cefazolin 1 gm, Route: Inactive IVPB, Drug 2016 [facility] form: INJ, Q8H, Dosing Weight 43.324, kg, Start date: 02/03/17 16:00:00 CDT, Duration: 3 doses or times, Stop date: 02/04/17 8:00:00 CDT, ABX Indication: Surgical Prophylaxis Pepcid 20 mg, Route: Inactive IVP, ONCE, 2016 [facility] Dosing Weight 43.324, kg, Start date: 02/03/17 10:38:00 CDT, Stop date: 02/03/17 10:38:00 CDT Reglan 10 mg, Route: Inactive 02/03[facility] IVPB, ONCE, 2016 [facility] Dosing Weight 43.324, kg, Start date: 02/03/17 10:38:00 CDT, Stop date: 02/03/17 10:38:00 CDT 72 HR Scopolamine 1 patch, Route: Inactive 02/[address] [facility] 0.0139 MG/HR TOP, Drug Form: 2016 [place] Transdermal Patch ERFILM, Dosing Weight 43.324, kg, ONCE, Apply behind ear. Avoid use in elderly., Start date: 02/03/17 10:04:00 CDT, Stop date: 02/03/17 10:04:00 CDT Promethazine 6.25 mg, Route: Inactive IVPB, ONCE, 2016 [facility] Dosing Weight 43.324, kg, PRN Nausea & Vomiting, Start date: 02/03/17 10:04:00 CDT Ondansetron 4 mg, Route: Inactive 02/[facility] IVP, ONCE, 2016 [facility] Dosing Weight 43.324, kg, PRN Nausea & Vomiting, Start date: 02/03/17 10:04:00 CDT Meperidine 12.5 mg, Route: Inactive 02/03[facility] IVP, Q30Min, 2016 [facility] Dosing Weight 43.324, kg, PRN Other -See Comment, For shivering, Start date: 02/03/17 10:04:00 CDT, Duration: 2 doses or times, Stop date: Limited # of times Naloxone 0.4 mg, Route: Inactive IVP, Q2MIN, 2016 [facility] Dosing Weight 43.324, kg, PRN Narcotic Reversal, Start date: 02/03/17 10:04:00 CDT, Duration: 8 doses or times, Stop date: Limited # of times Flumazenil 0.2 mg, Route: Inactive IVP, PRN, 2016 [facility] Dosing Weight 43.324, kg, PRN Benzodiazepine Reversal, Initial dose, Start date: 02/03/17 10:04:00 CDT, Duration: 30 day, Stop date: 03/05/17 10:03:00 CDT Diphenhydramine 12.5 mg, Route: Inactive 02/[facility] IVP, Drug form: 2016 [facility] t INJ, Q6H, Dosing Weight 43.324, kg, PRN Itching, Start date: 02/03/17 10:04:00 CDT, Duration: 30 day, Stop date: 03/05/17 10:03:00 CDT Ketorolac 30 mg, Route: Inactive 02/03[facility] IVP, ONCE, 2016 [facility] Dosing Weight 43.324, kg, Start date: 02/03/17 10:04:00 CDT, Duration: 1 doses or times, Stop date: 02/03/17 10:04:00 CDT Oxycodone 5 mg, Route: Inactive PO, Drug form: 2016 [facility] TAB, Q4H, Dosing Weight 43.324, kg, PRN Pain Score 4-6, Start date: 02/03/17 10:04:00 CDT, Duration: 30 day, Stop date: 03/05/17 10:03:00 CDT Fentanyl 25 microgram, Inactive Route: IVP, 2016 [facility] Q5Min, Dosing Weight 43.324, kg, PRN Pain Score 4-6, Priority: Routine, Start date: 02/03/17 10:04:00 CDT, Duration: 4 doses or times, Stop date: Limited # of times Morphine 2 mg, Route: Inactive IVP, Q5Min, 2016 [facility] Dosing Weight 43.324, kg, PRN Pain Score 4-6, Start date: 02/03/17 10:04:00 CDT, Duration: 5 doses or times, Stop date: Limited # of times Hydromorphone 0.5 mg, Route: Inactive 02/03[facility] IVP, Q5Min, 2016 [facility] Dosing Weight 43.324, kg, PRN Pain Score 7-10, Start date: 02/03/17 10:04:00 CDT, Duration: 4 doses or times, Stop date: Limited # of times Calcium Chloride 1,000 mL, Rate: Inactive 0.0014 MEQ/ML / 125 ml/hr, 2016 [facility] Potassium Infuse over: 8 Chloride 0.004 hr, Route: IV, MEQ/ML / Sodium Dosing Weight Chloride 0.103 43.324 kg, MEQ/ML / Sodium Total Volume: Lactate 0.028 1,000, Start MEQ/ML Injectable date: 02/03/17 Solution 10:04:00 CDT, Duration: 30 day, Stop date: 03/05/17 10:03:00 CDT magnesium citrate 300 ml, Route: Inactive PO, Drug Form: 2016 [facility] LIQ, Dosing Weight 43.324, kg, ONCE, PRN Constipation, Start date: 02/03/17 9:25:00 CDT Acetaminophen 325 1 tab, Route: Inactive MG / Hydrocodone PO, Drug Form: 2016 [facility] Bitartrate 5 MG TAB, Dosing Oral Tablet Weight 43.324, kg, Q4H, PRN Pain, Start date: 02/03/17 9:25:00 CDT, Duration: 30 day, Stop date: 03/05/17 9:24:00 CDT Dilaudid 0.5 mg, Route: Inactive IV, Q3H, Dosing 2016 [place] Weight 43.324, kg, PRN Pain, Start date: 02/03/17 9:25:00 CDT, Duration: 30 day, Stop date: 03/05/17 9:24:00 CDT Zofran 4 mg, Route: Inactive IV, Drug form: 2016 [facility] INJ, Q8H, Dosing Weight 43.324, kg, PRN Nausea, Start date: 02/03/17 9:25:00 CDT, Duration: 30 day, Stop date: 03/05/17 9:24:00 CDT Sodium Chloride 1,000 mL, Rate: Inactive 0.154 MEQ/ML 75 ml/hr, 2016 [facility] Injectable Infuse over: Solution 13.3 hr, Route: IV, Dosing Weight 43.324 kg, Total Volume: 1,000, Start date: 02/03/17 9:25:00 CDT, Duration: 30 day, Stop date: 03/05/17 9:24:00 CDT neostigmine Route: IV, Drug Inactive (ANES) form: INJ, 2016 [facility] ONCE, Stop date: 02/03/17 9:16:00 CDT glycopyrrolate Route: IV, Drug Inactive (ANES) form: INJ, 2016 [facility] ONCE, Stop date: 02/03/17 9:16:00 CDT rocuronium (ANES) Route: IV, Drug Inactive 02/03 / MH form: INJ, 2016, Stop date: 02/03/17 8:47:00 CDT dexamethasone Route: IV, Drug Inactive 02/03/ M H (ANES) form: INJ, 2016, Stop date: 02/03/17 8:47:00 CDT ceFAZolin (ANES) Route: IV, Drug Inactive 02/03/ MH form: INJ, 2016, Stop date: 02/03/17 8:42:00 CDT acetaminophen Route: IV, Drug Inactive H (ANES) form: INJ, 2016, Stop date: 02/03/17 8:42:00 CDT ondansetron Route: IV, Drug Inactive 02/03/ MH (ANES) form: INJ, 2016, Stop date: 02/03/17 8:42:00 CDT lidocaine (ANES) Route: IV, Drug Inactive 02/03/ MH form: INJ, 2016, Stop date: 02/03/17 8:12:00 CDT midazolam (ANES) Route: IV, Drug Inactive 02/03/ MH form: SOLN, 2016, Stop date: 02/03/17 8:12:00 CDT propofol (ANES) Route: IV, Drug Inactive 02/03/ MH form: INJ, 2016, Stop date: 02/03/17 8:12:00 CDT fentaNYL (ANES) Route: IV, Drug Inactive MH form: INJ, 2016, Stop date: 02/03/17 8:12:00 CDT Calcium Chloride 1,000 mL, Rate: Inactive MH 0.0014 MEQ/ML / 25 ml/hr, [address] [place] Potassium Infuse over: 40 Chloride 0.004 hr, Route: IV, MEQ/ML / Sodium Dosing Weight Chloride 0.103 43.324 kg, MEQ/ML / Sodium Total Volume: Lactate 0.028 1,000, Start MEQ/ML Injectable date: 02/03/17 Solution 7:49:00 CDT, Duration: 30 day, Stop date: 03/05/17 7:48:00 CDT LR 1000 mL INJ Route: IV, Inactive 06 (ANES) Total Volume: 2016 [facility] 1,000, Start date: 02/03/17 7:39:00 CDT, Stop date: 02/03/17 8:39:00 CDT Carbidopa 25 mg, PO, TID, Active 0 Refill(s) 2016 [facility] Allergies, Adverse Reactions, Alerts Substance Category Reaction Severity Reaction Status Date Comments S ource type Reported traMADol Assertion Drug Active Misch er allergy Neuro Immunizations No Data Provided for This Section Results Order Name Results Value Reference Date Interpretation Comments Josefa rce Range BLOOD BANK Antibody Negative 01/27 RESULTS Scrn (01/27/17 11:42 AM) /2016 [facility] BLOOD BANK ABO/Rh O POS 01/27 RESULTS /2016 [facility] CHEM PANEL Globulin 3.1 2.7 - 4.2 01/27 [facility] CHEM PANEL AGAP 11.9 10.0 - 01/27 20.0 [facility] CHEM PANEL A/G Ratio 1.3 0.7 - 1.6 01/27 [facility] CHEM PANEL B/C Ratio 22 6 - 25 01/27 [facility] CHEM PANEL eGFR 97 01/27 Result Comment: The [facility] eGFR is calculated using the CKD-EPI formula. In most young, healthy individuals the eGFR will be >90 mL/min/1.73m2 . The eGFR declines with age. An eGFR of 60-89 may be normal in some populations, particularly the elderly, for whom the CKD-EPI formula has not been extensively validated. Use of the eGFR is not recommended in the following populations:< br/>
Beth viduals with unstable creatinine concentration s, including patients and those with serious co-morbid conditions.<b r/>
Patie nts with extremes in muscle mass or diet.

The data above are obtained from the National Kidney Disease Education Program (NKDEP) which additionally recommends that when the eGFR is used in patients with extremes of body mass index for purposes of drug dosing, the eGFR should be multiplied by the estimated BMI. CHEM PANEL AST 11 0 - 37 01/27 [facility] CHEM PANEL Bili Total 0.3 0.2 - 1.3 01/27 [facility] CHEM PANEL Alk Phos 129 39 - 136 01/27 [place] CHEM PANEL BUN 15 7 - 22 01/27 [place] CHEM PANEL CO2 28 24 - 32 01/27 [place] CHEM PANEL Chloride Lvl 104 95 - 109 01/27 [place] CHEM PANEL Creatinine 0.68 0.50 - 01/27 MH Lvl 1.40 /2016 [place] CHEM PANEL Glucose Lvl 101 70 - 99 01/27 [place] CHEM PANEL Sodium Lvl 139 135 - 145 01/27 [place] CHEM PANEL Potassium 4.9 3.5 - 5.1 01/27 MH Lvl /2016 [place] CHEM PANEL ALT 19 0 - 65 01/27 [place] CHEM PANEL Calcium Lvl 9.6 8.5 - 10.5 01/27 [place] CHEM PANEL Total 7.2 6.4 - 8.4 01/27 MH /2016 [place] CHEM PANEL Albumin Lvl 4.1 3.5 - 5.0 01/27 [facility] HEMATOLOGY Monocytes # 0.4 0.0 - 0.8 01/27 [facility] HEMATOLOGY Segs-Bands # 4.5 1.5 - 8.1 01/27 [facility] HEMATOLOGY Lymphocytes 1.6 1.0 - 5.5 01/27 MH # /2016 [facility] HEMATOLOGY Eosinophils 0.7 0.0 - 4.0 01/27 [place] HEMATOLOGY Basophils 0.5 0.0 - 1.0 01/27 [facility] HEMATOLOGY Monocytes 5.9 2.0 - 12.0 01/27 /2016 [facility] HEMATOLOGY Lymphocytes 24.5 20.0 - 01/27 MH 40.0 [place] HEMATOLOGY Segs 68.4 45.0 - 01/27 MH 75.0 /2016 [facility] HEMATOLOGY INR 0.95 0.85 - 01/27 MH 1.17 /2016 [facility] HEMATOLOGY PTT 25.1 22.9 - 01/27 MH 35.8 /2016 [facility] HEMATOLOGY PT 12.9 12.0 - 01/27 MH 14.7 [facility] HEMATOLOGY MPV 8.1 7.4 - 10.4 01/27 [facility] HEMATOLOGY Platelet 306 133 - 450 01/27 [facility] HEMATOLOGY RDW 12.9 11.5 - 01/27 MH 14.5 [facility] HEMATOLOGY Hgb 13.6 12.0 - 01/27 MH 16.0 [facility] HEMATOLOGY Hct 39.5 36.0 - 01/27 MH 48.0 /2016 [facility] HEMATOLOGY RBC 4.26 4.20 - 01/27 MH 5.40 /2017 [facility] HEMATOLOGY WBC 6.6 3.7 - 10.4 01/27 /2016 [facility] HEMATOLOGY MCH 31.9 27.0 - 01/27 MH 31.0 /2016 [facility] HEMATOLOGY MCHC 34.4 32.0 - 01/27 36.0 /2016 [facility] HEMATOLOGY MCV 92.7 80.0 - 01/27 MH 98.0 /2016 [facility] Pathology Reports No Data Provided for This Section Diagnostic Reports Report Value Date Source Brain scan SPECT NM EXAM: NM Brain Imaging SPECT 01/02/2018 [facility] DATE: 01/02/2018 10:[address] INDICATION: Brain CATRINA Scan-D X: Parkinson's Disease - Brain CATRINA Scan-DX: Parkinson's Disease, evaluate for Parkinson disease COMPARISON: Brain MRI from June 27, 2017. TECHNIQUE: After intravenous administra tion of 3 mCi of I-123 Ioflupane, delayed SPECT images of the head were obtained at 4 hours post injection. FINDINGS: Right striatum: There is decreased tracer u ptake in the right putamen with a Z score of -2.6 (Z scores represent standard deviation from normal age match population and are significant if less than -1.6). There is decreased tracer u ptake in the right caudate with a Z score of -2.01. The right striatum contribut es 43% of the remaining dopamine transporter function with a Z score of -2.47 . Left striatum: Decrease tracer uptake in the left putamen is s een with a Z score of -1.79. Tracer uptake is normal in the left caudate with a Z score of -1.55. The left striatum contribute s 57% of the remaining dopamine transporter function with a Z score of -1.72. The remainder of tracer dist ribution in background brain parenchyma is within normal limits. IMPRESSION: The scan findings are sugges tive of dysfunction of the dopamine transporters (right greater than left striata), suggestive of Parkinson disease. 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 After gadolinium administration, multiple sagittal and axial T1-we ighted images were obtained with fat suppression . Small hemangioma is noted at the right L3 vertebral body. Disc desiccation is present at the lower 3 lumbar intervertebral disc spaces with disc space narrowing noted at L5-S1. Modic changes are noted a t the opposing endplates at L4-L5 and the inferior endplate of L5. Schmorl's node deformity at the inferior endplate of T12 and L3. Conus and cauda equina are unremarkable. Findings will be described per level as follows: At T12-L1,there is no acute disc herniation, central spinal stenosis or neural foraminal stenosis. At L1-L2,there is no acute d isc herniation, central spinal stenosis or neural foraminal stenosis. At L2-L3,there is ligamentou s thickening and degenerative arthropathy of the apophyseal joints at this level resulting in mild central spinal stenosis. No neural foraminal stenosis or acute disc herniation. At L3-L4,there is mild broad -based disc bulge present associated with ligamentous thickening and degenerative arthropathy of the apophyseal joints at this level resulting in moderate central spinal sten osis. No neural foraminal stenosis or acute disc herniation. At L4-L5,there is mild broad -based disc bulge present associated with ligamentous thickening and degenerative arthropathy of the apophyseal joints at this level resulting in moderate central spinal sten osis. No right neural forami nal stenosis. Mild left neural foraminal stenosis. No acute disc herniation. At L5-S1,there is moderate b road-based disc bulge present associated with ligamentous thickening and degenerative arthropathy of the apophyseal joints at this level resulting in no significant central s jhoana stenosis. Bilateral ne ural foraminal stenosis. No acute disc herniation. Left [...] lumbar soft tiss ues along the left paramedia n incision contiguous with enhancement at the laminectomy defect similar to the previous exam now demonstrating extension into the left side of the lumbar spinal canal at thi s level encasing this cystic structure with enha ncement. IMPRESSION: 1. Interval extension of enh ancement into the left side of the lumbar [...] 4. At L4-L5, mild left neural foraminal stenosis . 5. At L5-S1, bilateral neural foraminal stenosis . 6. Moderate central spinal stenosis is noted at L3-L4 and L4-L5. 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 FINDINGS: ALIGNMENT AND GENERAL SURVEY : There is normal alignment of the thoracic spine. T8 vertebral body hemangioma is present. The bone marrow is otherwise normal for the patient's age. There are no fractures or compression def ormities. The thoracic spine posterior elements are normal. The costovertebral junctions are unremarkable. SPINAL CORD: The thoracic sp ine spinal cord is normal in size and signal. The CSF space is unremarkable. The conus medullaris ends at the L1 level. DISK SPACES: The discs are d esiccated throughout the thoracic spine and show mild disc height loss throughout the mid to lower thoracic spine. There is no disc bulge, protrusion or degenerative change a nd no significant central or foraminal stenosis. Scattered Schmorl's nodes in the lower thoracic spine are seen. IMPRESSION: No significant disc bulges o r protrusions throughout the thoracic spine and no spinal canal stenosis or neural foraminal narrowing. 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 Post-contrast sequences were also obtained. Contrast: 9 cc of IV gadolinium was administered . FINDINGS: ALIGNMENT AND GENERAL ASSESS MENT: 5 nonrib-bearing lumbar vertebra are present. No [...] are yu l in signal intensity and he ight. The conus terminates at L1. Paravertebral soft tissues are unremarkable. DISC SPACES: T12-L1: The disc is normal. There is no central or foraminal stenosis. The facet joints are unremarkable. L1-L2: The disc is normal. T here is no central or foraminal stenosis. Mild facet arthrosis is present. L2-L3: The disc is normal. T here is no central or foraminal stenosis. Mild facet arthrosis is present. L3-L4: Small annular disc bu lge is present. Mild facet arthrosis and ligamentum flavum hypertrophy is seen. There is no spinal canal stenosis or neural foraminal narrowing. L4-L5: Large annular disc bu lge is present. Moderate facet arthrosis and ligamentum flavum hypertrophy is seen. No central spinal canal stenosis is seen. There is mild to moderate bilateral neural foraminal narrowing, left greater than right. L5-S1: Large circumferential disc osteophyte complex is present. Moderate facet arthrosis is seen. Postoperative changes of left hemilaminectomy are seen with enhancing granulation tissue within the po stoperative site. There is n o central spinal canal stenosis. Moderate-severe bilateral neural foraminal narrowing, right greater than left, is seen. There is no significant nerve root clumping to s uggest arachnoiditis. IMPRESSION: 1. Degenerative changes of t he lower lumbar spine with moderate-severe bilateral neural foraminal narrowing at L5-S1, right greater than left. 2. L4-L5 mild to moderate bi lateral neural foraminal narrowing, left greater than right. 3. Postoperative changes of left L5 hemilaminectomy with enhancing granulation tissue within the postoperative bed. SL: [id number] Brain wo contrast MRI Study: Brain wo contrast MRI 06/27/2017 ANT [place] Clinical Indication: R53.1 Weakness - R53.1 Weakness Comparison: None TECHNIQUE: Multiplanar, mult isequence magnetic resonance imaging of the brain was performed before and after the administration of intravenous gadolinium contrast. FINDINGS: BRAIN PARENCHYMA: The brain parenchyma has normal signal with normal mobley-white junction, sulci, and gyri. There is no diffusion weighted imaging or ADC map abnormality to suggest acute/subacute ischem ia. No acute intracranial h emorrhage, mass effect, midline shift, or extra- axial fluid collection is seen. The corpus callosum appears normal. There is no magnetic susceptibility to suggest recent or r emote intracranial hemorrhage. No abnormal enhan cement is seen. CEREBELLOPONTINE REGIONS AND SKULL BASE: The cerebellopontine angles appear unremarkable. The skull base, craniocervical junction, and brainstem are normal. The optic chiasm is normal. The sellar and pineal regions are unremarkable. VENTRICLES: The ventricles a re normal in size and configuration. The basilar cisterns are normal. VESSELS: The venous sinuses are grossly unremarkable. The expected intracranial flow voids are present. ORBITS, VISUALIZED PARANASAL SINUSES AND MASTOIDS: The visualized orbits and paranasal sinuses are unremarkable. The mastoid air cells are clear. IMPRESSION: 1. No acute intracranial abnormality. 2. No abnormal enhancement. SL: [id number] Knee 3 Views EXAM: Knee 3 Views Bilateral DX 03/28/2017 OPID [place] Bilateral DX DATE: 03/28/2017 2:50 PM CDT INDICATION: - pain in bilateral knees COMPARISON: None. IMPRESSION: Right knee: No definite lina s acute fracture or dislocation detected. Mild degenerative change about the knee, most noticeable along the medial compartment. No significant suprapatellar joint effusion is present. Left knee: No definite gross acute fracture or dislocation detected. Mild degenerative change about the knee, most noticeable along the medial compartment. No significant suprapatellar joint effusion is present. SL: [id number] Spine cervical wo EXAM: MRI CERVICAL SPINE WITHOUT CONTRAST 03/11 OPID [place] contrast MRI DATE: 03/28/2017 2:14 PM CDT INDICATION: Neck pain. ADDITIONAL INFORMATION AND C ONTRAST: M47.812 Spondylosis without myelopathy or radiculopathy, cervical region - M47.812 Spondylosis without myelopathy or radiculopathy, cervical region. COMPARISON: None. TECHNIQUE: Multiplanar, mult isequence noncontrast MR imaging of the cervical spine. FINDINGS: Vertebrae: Normal in shape, signal intensity and alignment. A 7.0 mm posterior superior C4 vertebral lesion likely hemangioma. Disks and neuroforamina: C1-C2: Gross anatomic alignment. C2-C3: No acute disc herniat ion, significant spinal or foraminal stenosis detected. C3-C4: Mild diffuse disc bul ge effacing the anterior CSF space without significant cord contour abnormality. Mild bilateral foraminal stenosis is present. C4-C5: Mild diffuse disc bul ge. No significant cord contour abnormality or edema. No significant foraminal stenosis detected. C5-C6: Posterior disc osteop hyte complex and disc bulge. No significant cord contour abnormality or edema. Severe bilateral foraminal stenosis from prominent uncovertebral hypertrophy and facet arthrosi s. Please correlate with neurologic symptoms. C6-C7: Posterior disc osteop hyte complex and disc bulge. No significant cord contour abnormality or edema. No significant foraminal stenosis detected. C7-T1: No acute disc herniat ion, significant spinal or foraminal stenosis detected. Spinal canal and cord: No co nvincing evidence of cord compression or focal signal abnormality detected. Paraspinal soft tissues: Normal. IMPRESSION: 1. Multilevel degenerative d isc disease and facet arthrosis, most pronounced at C3/C4, C5/C6 and C6/C7 as detailed above. 2. No definite acute compression fracture or pat hologic subluxation detected. SL: [id number] Spine lumbar wo PROCEDURE: LUMBAR SPINE MAGNETIC RESONANCE IMAGI NG 02/28/2016 ANT [place] contrast MRI CLINICAL INDICATION: G89.4 Chronic pain syndrom e. Note: The patient also reports leg weakness. COMPARISON: None. TECHNIQUE: Unenhanced axial and sagittal MR images of the lumbar spine were performed. FINDINGS: 5 nonrib-bearing l umbar vertebral bodies are assumed. There is approximately 2 mm retrolisthesis of L5 on S1. The remaining lumbar vertebral bodies are normally aligned. There is no demonstrable spondylolysis. There are anterior marginal osteophytes from L3 through S1. There are mixed Modic type I and type II degenerative changes of the vertebral endplates with Schmorl's nodes at L4-L5 and L5-S1. Christianne morl's nodes are also noted involving the inferior vertebral endplates of T12 and L3 and the superior vertebral endplate of L3. There are several scattered foci of T1 and T2 hyperintensity in t he marrow of the spine which may represent benign hemangiomas or focal fatty marrow change the largest measuring 1.1 cm at L3. There is no compression deformity. There is partial ankylosis o f the visualized left sacroiliac joint. There are mild degenerative changes of the visualized right sacroiliac joint. There is no significant abnormality of the visualized re troperitoneal and paraverteb ral soft tissues. The conus medullaris terminates at the level of L1. The visualized lower thoracic spinal cord demonstrates normal signal intensity. T12-L1: Mild facet arthropat hy. No significant foraminal narrowing or spinal stenosis. L1-L2: No additional significant abnormality. L2-L3: No additional significant abnormality. L3-L4: Disc desiccation. Ant erior annular fissure. Broad-based posterior disc bulging most pronounced in the posterolateral aspects measuring a maximal AP dimension of approximately 3 mm. Mild bilateral foraminal narrowing. Mild spinal stenosis. L4-L5: Mild posterior disc s pace narrowing. Disc desiccation. Anterior annular fissure. Broad-based posterior disc bulging most pronounced in the left posterolateral aspect measuring a maximal AP dimens ion of approximately 4 mm wi th a central annular fissure. Mild facet arthropathy. Mild right foraminal narrowing. Moderate left foraminal narrowing. Mild spinal stenosis. L5-S1: Grade 1 retrolisthesi s of L5 on S1. Moderate to severe diffuse disc space narrowing most pronounced posteriorly. Disc desiccation. Anterior and lateral disc bulging. Broad-based posterior disc bu lge/protrusion/osteophyte co mplex measuring a maximal AP dimension of approximately [...] Facet arthropathy at T12-L1. 4. Disc desiccation, broad-b ased posterior disc bulging, mild bilateral foraminal narrowing and mild spinal stenosis at L3-L4. 5. Posterior disc space narr owing, degenerative endplate changes, disc desiccation, broad-based posterior disc bulging with an annular fissure, facet arthropathy, mild right foraminal narrowing, moderat e left foraminal narrowing and mild spinal steno sis at L4-L5. 6. Diffuse disc space narrow ing, degenerative endplate changes, disc desiccation, broad-based posterior disc bulge/protrusion/osteophyte complex with an annular fissure, facet arthropathy and moderate to severe bilateral foraminal narrowing at L5-S1. 7. Degenerative changes of the right sacroiliac joint. 8. Partial ankylosis of the left sacroiliac join t. SL: 15 Spine cervical wo MRI CERVICAL SPINE WITHOUT CONTRAST 02/07/2016 [facility] [place] contrast MRI INDICATION: Right upper extremity radiculopathy COMPARISON: None DISCUSSION: Image detail is degraded by motion artifacts. Alignment: Vertebral body alignment is within no rmal limits. Craniocervical junction: No significant abnormalities. The [...] C5-C6: There is mild loss of disc h eight. Posterior disc osteophyte complex results in mild [...] are patent. IMPRESSION: Mild spondylosis of the cerv ical spine, as described. Spinal canal stenosis is mild at worst, at C5-C6. Foraminal stenosis is the worst at C5-C6, severe on the right side. SL:16 Brain scan SPECT NM EXAM: Catrina scan with brain SPECT 06/22/2015 [facility] DATE: June 22, 2015 at 1402. INDICATION: Left-sided tremor, neck pain, headac he, changing gait TECHNIQUE: After intravenous administration of 4.4 mCi of I-123 Ioflupane, delayed SPECT images of the head were obtained at 4 hours post injection. FINDINGS: Mild, diffuse decrease in tr acer uptake in the right basal ganglia is suggestive of early Parkinson disease. The tracer uptake in the left basal ganglia appears normal. IMPRESSION: The scan findings are consis tent with dysfunction of the dopamine transporters in the right basal ganglia, suggestive of Parkinson disease. Spine cervical wo MR CERVICAL SPINE 03/03/2015 [facility] HISTORY: 54 y/o F / RADICULOPATHY TECHNIQUE: Sagittal T1 and T 2-weighted sequences are performed in addition to axial 3-D FSE and axial gradient echo images. FINDINGS: There is a mild exaggeration of the no rmal cervical lordosis. C2-C3: Mild desiccation. No significant stenosis . C3-C4: Mild desiccation and disc bulge. Mild to moderate left-sided foraminal narrowing due to spurring of the uncovertebral joint. C4-C5: Mild generalized is b ulge slightly more prominent to the right of midline. No significant stenosis. C5-C6: Moderate desiccation and narrowing of the disc space. Eccentric disc bulge projects into the caudal aspect of the neural foramen on the right with some spurring of the inferior endplate of C5 as well. Findings produce a moderate right-sided fo raminal narrowing. C6-C7: Mild desiccation and disc bulge. Some thickening of the ligamentum flavum posteriorly combines with disc bulge to produce a moderate narrowing of the canal at the level of the inferior endplate o f C6. No cord compression. Some ventral subarach noid space preserved. C7-T1: Unremarkable. The cord is normal in caliber and signal. IMPRESSION: 1. Mild left-sided foraminal narrowing due to spurring of the uncovertebral joint at C3-C4. 2. Endplate spur and eccentr ic disc bulge results in moderate right-sided foraminal narrowing at C5-C6. 3. Mild narrowing of the alma tral canal at C6-C7 due to some disc bulge and posterior ligamentum flavum thickening. SL: 12 Brain wo contrast MRI MRI BRAIN 03/03/2015 [facility] HISTORY: TREMOR LEFT SIDE WEAKNESS FINDINGS: Sagittal T1-weight ed images revealed normal appearance of the cerebellar tonsils and pituitary gland. There is no evidence of intracranial mass or shift in midline structures. Axial FLAIR imag es show no significant white matter disease. Axial gradient images reveal no evidence of prior hemorrhage. Axial diffusion weighted images reveal no recent infarct. Axial T2 images show normal flow-voids in the major vascular structures. The paranasal sinuses and mastoid air cells are clear. IMPRESSION: Negative MRI of brain. SL: 12 Consultation Notes No Data Provided for This Section Discharge Summaries No Data Provided for This Section History and Physicals No Data Provided for This Section Vital Signs Vital Sign Value Date Comments Source BMI Calculated 24.95 10/21/2017 [facility] Height 157.48 cm 10/21/2017 [facility] Weight 61.875 10/21/2017 [facility] Systolic (mm Hg) 131 10/21/2017 [facility] [place] [facility] Diastolic (mm Hg) 82 10/21/2017 [facility] Heart Rate 84 10/21/2017 [facility] Weight 43.409 07/29/2017 [facility] BMI Calculated 18.69 07/29/2017 [facility] Height 152.4 cm 07/29/2017 [facility] Systolic (mm Hg) 110 02/03/2017 [facility] Diastolic (mm Hg) 68 02/03/[address] Systolic (mm Hg) 123 02/03/2017 [facility] Diastolic (mm Hg) 70 02/03/[address] Systolic (mm Hg) 129 02/03/2017 [facility] Diastolic (mm Hg) 64 02/03/[address] Respitory Rate 16 02/03/2017 [facility] Rate 79 02/03/2017 [facility] Rate 82 02/03/2017 [facility] Respitory Rate 14 02/03/2017 [facility] Rate 83 01/27/2017 [facility] Temperature Oral (F) 98.2 F 01/27/2017 [facility] Weight 43.324 01/27/2017 [facility] BMI Calculated 17.47 01/27/2017 [facility] Height 157.48 cm 01/27/2017 [facility] Encounters Location Location Encounter Encounter Reason Attending ADM DC Stat us Source Details Type Number For Provider Date Date Visit [facility] Outpatient [id number] Fe 03/03 03/04 Santy 0 Majmund[place] /2014 [facility] Outpatient [id number] Shirine 06/22 06/23 [facility] [place] 1 Majmudar [facility] Outpatient [id number] FIRAS 07/12 [facility] Santy [facility] [id number] Firas 11/28 12/28 [facility] [place] [facility] 0 Qu [facility] Outpatient [id number] FIRAS 12/10 [facility] 1 QU Santy SMR OP Therapy [id number] Firas 12/31 01/30 [facility] [place] [id number] Hilario 02/06 0630 [facility] 0 Fri [facility] Outpt Di[facility] [id number] Hilario 02/27 07 [facility] [place] Outpatient [id number] MARGARITA 10/07 [facility] 2 [place] [facility] [id number] JAMIL 11/05 [facility] 3 [place] Out[place] [id number] FIRJORGE 12/09 [facility] 4 QU [place] Outpatient [id number] BENJAMIN BEE 12/10 [facility] 5 [facility] Outpatient [id number] VIJAY ADKINS 12/24 [facility] Outpatient [id number] JAMIL 02/03 [facility] 7 [facility] Inpatient [id number] Jamil 02/03 02/03 [place] 3 [facility] Outpatient [id number] GERALD 02/21 [facility] 8 [facility] Outpatient [id number] JAMIL 03/18 [facility] 9 [facility] Outpt Diag [id number] Jamil 03/28 03/29 [facility] Outpatient [facility] 2 [facility] [place] Outpatient [id number] JAMIL 05/13 [facility] 0 Santy MNA Phone [id number] 06/26 06/28 [facility] Message Ne[facility] [place] [facility] Phone [id number] 06/26 06/28 [facility] Message [facility] [place] [facility] Outside [id number] 06/26 06/28 [facility] Medical [facility] [place] [facility] Outpt Diag [id number] Jamil 06/27 06/28 [facility] Outpatient [facility] 3 [facility] [place] MNA Phone [id number] 07/07 07/09 [facility] Message Neur [facility] y [place] [facility] Spine Phone [id number] 07/16 07/18 [facility] Message Neuro Outpatient [id number] JAMIL 07/29 [facility] 1 [place] [facility] Outpatient [id number] Hilario 07/29 07/30 [facility] 1 [facility] [place] [facility] Outpt Diag [id number] Joseph Cuello 10/01 10/02 [facility] [place] [facility] [place] MNA Phone [id number] 10/08 10/10 [facility] Message Neur [facility] [place] [facility] [id number] JAMIL 10/21 [facility] 2 [place] [facility] Outpatient [id number] Hilario 10/21 10/22 [facility]sur[facility] 2 Neur o y [facility] Outpatient [id number] Antonette 01/02 01/03 [facility] 4 Low [facility] Procedures No Data Provided for This Section Assessment and Plan Assessment and Plan Date Source Extracted from:Title: Clinical Document 02/03/2017 [facility] Author: Jamil Zavala MD Date: 02/03/17 PATIENT NAME: MARICHUY CARRERO DATE OF OPERATION/PROCEDURE: 02/03/2017 *_*_* PREOPERATIVE DIAGNOSES: 1. LEFT S1 perineural or synovial cyst with likely LEFT S 1 radiculopathy. POSTOPERATIVE DIAGNOSES: 1. LEFT S1 perineural cyst with likely LEFT S1 radiculopa thy. PROCEDURES PERFORMED: 1. Posterior midline approach to the lumbar spine from L5 -S1. 2. LEFT L5-S1 hemilaminotomy, mesial facetectomy, and for aminotomy. 3. Exploration of LEFT S1 perineural cyst. 4. Use of microscope for decompression. 5. Use of radiographs for vertebral level localization. SURGEON: Jamil Zavala MD SITE ACQUISITION MANAGER: Chris Villareal ANESTHESIA: General endotracheal tube anesthesia. COMPLICATIONS: None. IV FLUID 500 cc URINE OUTPUT: NA ESTIMATED BLOOD LOSS 50 cc INDICATIONS FOR SURGERY: 56 yo F with LEFT S1 synovial or perineu ral cyst with likely LEFT S1 radiculopathy. Patient has been having LEFT greater than RIGHT leg and back pain for 2 years. MRI shows possible LEFT L5-S1 synovia l cyst versus LEFT S1 perineural cyst wi th deformation of the LEFT S1 nerve root. On exam, LEFT gasctroc is 4-. We suspected the LEFT leg pain is likely secondary to LEFT L5-S1 synovial cyst with late ral recess stenosis although as it was o nly visible on one sequence, clear definition is less clear. The left gastrocnemius weakness supports a compressive lesion rather than a perineural cyst. She hahn s failed medication, exercise, and injections for 2 years. We recommend: LEFT L5-S1 hemilaminectomy, mesial facet ectomy and foraminotomy, exploration of LEFT L5-S1 region cyst. We discussed the risks and benefits of t he procedure. Risks include bleeding, infection, neurologic injury, weakness, numbness, paralysis, cerebrospinal fluid leak, post-laminectomy instability, no imp rovement systems, need for reoperation a nd possible need for fusion, and even . There is the possibility that this is a perineural cyst and as such very little may be able to be done. The patient expressed understanding of the risks an d benefits of procedure and wished to proceed. All questions were answered. No guarantees were made to the outcome of the case. DESCRIPTION OF OPERATION: The patient was appropriately identified with all markers. The patient was brought back by anesthesia and received general endotracheal tube anesthesia with the neck held in neutral position. The sina ent was then dosed with preoperative ant ibiotics. The patient was then turned prone onto [...] The incision was planned for a LEFT L5-S 1 hemilaminectomy, mesial facetectomy and foraminotomy, exploration of LEFT L5-S1 region cyst. Skin was injected with 0.5% Marcaine wit h epinephrine. A 10 blade scalpel was then used to make a vertical longitudinal incision spanning the spinous processes from L5 to S1. Bovie cautery was used to deepen the incision through subcutaneou s tissue and fascia down to the spinous processes from L5 to S1. A curet was then applied to the lamina and radiographs were taken to confirm vertebral level. A fter radiographic position was confirmed , the posterior elements from the inferior half of L5 to the superior half of S1 were exposed in subperiosteal fashion using Bovie cautery, [place], curettes and ro ngeurs to skeletonize posterior elements , taking care to preserve all facet joint capsules and the overlying muscle attachments. Self-retaining retractors were then placed for exposure. The operating microscope was brought into the field. Decompression was then begun. LEFT L5-S 1 hemilaminectomy, mesial facetectomy and foraminotomy was performed sparing the spinous processes and posterior ligamentous structures. These were performed usi ng the pneumatic Boond drill with a ma tchstick drill bit, Kerrisons and curets. The traversing [...] By the end of the decompression, the alma tral canal, foramen, and lateral recesses were palpated and felt to be widely patent with the cyst protected by a covering of gelfoam. A ball-tipped probe was th en passed up along each nerve root throu gh the outer portion foramen and found to be completely free and not compressed. The wound was copiously irrigated with b acitracin irrigation. Hemostasis was achieved with bipolar electrocautery, thrombin-soaked Gelfoam and FloSeal. 1000 mg of vancomycin powder was then placed into the subfascial space. Closure was then commenced. The fascia w as closed with 0 Vicryl in interrupted fashion in multiple layers. Dermis was closed with 2-0 Vicryl in interrupted fashion. Skin was approximated Mastisol, Nathan ri-Strips, followed by Telfa. Hypafix d ressing was used to secure the dressing. All needle and sponge counts were correct. There were no complications during the surgery. The patient was then carefully rolled samuels pine onto a hospital bed. The patient was revived, extubated and taken to recovery room in stable condition moving 4 extremities postoperatively at baseline the [facility]. Dr. Jamil Zavala was scrubbed and present for the entire procedure. We discussed the completion of the case with the patient's family as well as the finding of a perineural cyst. They were very grateful for the care and information. All questions w ere answered. Plan of Care No Data Provided for This Section Social History Social History Date Source Social History TypeResponse 10/21/2017 [facility] Smoking Status Never smoker; Exposure to Tobacco Smoke None; Cigarette Smoking Last 365 Days No; Reg Smoking Cessation Counseling No entered on: 10/21/17 Social History TypeResponse 10/21/2017 [place] Smoking Status Never smoker; Exposure to Tobacco Smoke None; Cigarette Smoking Last 365 Days No; Reg Smoking Cessation Counseling No entered on: 10/21/17 Social History TypeResponse 10/21/2017 [facility] Smoking Status Never smoker; Exposure to Tobacco Smoke None; Cigarette Smoking Last 365 Days No; Reg Smoking Cessation Counseling No entered on: 10/21/17 Social History TypeResponse 02/03/2017 [facility] Smoking Status Never smoker; Exposure to Tobacco Smoke None; Cigarette Smoking Last 365 Days No; Reg Smoking Cessation Counseling No Social History TypeResponse 12/11/2015 [facility] [place] Smoking Status Never smoker; Exposure to Tobacco Smoke None; Cigarette Smoking Last 365 Days No; Reg Smoking Cessation Counseling No Social History TypeResponse 12/11/2015 [facility] [place] Smoking Status [place] Never smoker; Exposure to Tobacco Smoke None; Cigarette Smoking Last 365 Days No; Reg Smoking Cessation Counseling No Family History No Data Provided for This Section Advance Directives No Data Provided for This Section Functional Status No Data Provided for This Section
--- OUTSIDE RECORDS SUMMARY | 2020-01-20 23:55 | XMS REPORT | Continuity of Care Document ---
:1960 Author Organization [facility] t Address [address] [place] [address] Care Team Providers Name Role Phone Hever Seaman MD Primary Care Physician Angela Ng Attending Clinician HERNANDEZ Attending Clinician Unavailable CALIN Attending Clinician Unavailable VASCULAR Attending Clinician Unavailable Reuben Zavala Attending Clinician Khoi Cuello Attending Clinician NIKOLE Attending Clinician Unavailable Mikie Houser Attending Clinician Hever Seaman Attending Clinician Calos Attending Clinician Irvin Day Attending Clinician Reuben Zavala Admitting Clinician Problems Condition Condition Condition Status Onset Resolution Last Treating Co mments Source Name Details Category Date Date Treatment Clinician Date PARKINSONS Diagnosis Active 2018-01-02 Memoria DISEASE 5-05 10:32:00 l 00:00: Santy PARKINSONS 00 DISEASE Active 12/13/2017 [facility] M54.16 - Diagnosis Active 2017-03-28 M emoria "RADICULOP 8-10 13:55:00 l ENZO, M54.16 - 00:01: Negro francisco LUMBAR "RADICULOP 00 REGION" ATHY, LUMBAR REGION" Active 03/20/2017 [facility] [place] UNK Diagnosis Active 2017-02-03 Mem oria 5-18 05:28:00 l UNK 00:00: Santy 00 Active 12/26/2016 [place] G89.4 - Diagnosis Active 2016-02-07 Me moria CHRONIC 6-14 11:46:00 l PAIN G89.4 - 00:01: Formoso SYNDROME CHRONIC 00 PAIN SYNDROME Active 01/23/2016 [facility] [place] [place] PARKINSON Diagnosis Active 2014-082015-06-22 Memoria EVALUATION 08-15 10:06:00 l 00:00: Formoso PARKINSON 00 EVALUATION Active 06/15/2015 [facility] TREMOR / Diagnosis Active 2015-03-03 M emoria LEFT SIDE 02-22 18:36:00 l WEAKNESS TREMOR / 00:00: Herm kd LEFT SIDE 00 WEAKNESS Active 02/22/2015 [facility] TREMOR / Diagnosis Active 2015-03-02 M emoria LEFT SIDDE 02-22 15:47:00 l WEAKNESS TREMOR / 00:00: Herm kd LEFT SIDDE 00 WEAKNESS Active 02/22/2015 [facility] Vitamin D Problem Active 2018-01-27 Al moria deficiency 01-02 12:22:51 l (disorder) Vitamin 00:00: Her cormier D 00 deficiency (disorder) Active 01/02/2015 Problem 01/27/2018 Data migrated from [facility] on 02/15/15. Radha Neuro,[facility], ANT booker,[facility], ANT Hernandez,M H [facility] Heart Problem Active [facility] palpitatio palpitatio Lyn kes - ns ns Memoria l Outpati ent Clinics Preoperati Preoperati Problem Active [facility] ve ve [facility] clearance clearance Magno andrew l Outpati ent Clinics Parkinsons Parkinsons Problem Active [facility] disease disease [facility] Clinics Migraine Migraine Problem Active [facility] without without [facility] - aura and aura and Memori a without without l status status Outpati migrainosu migrainosu en t s, not s, not Clinics intractabl intractabl e e Insomnia, Insomnia, Problem Active [facility] unspecifie unspecifie Lyn kes - d type d type Memoria l Outpati ent Clinics Reflux Reflux Problem Active [facility] gastritis gastritis Luke s - Memoria l Outpati ent Clinics Cough Cough Problem Active [facility] 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 [facility] - syndrome syndrome Memori a not not l associated associated Ou tpati with with ent migraine migraine Clinic s Motion Motion Diagnosis Active [facility] sickness, sickness, Luke s - initial initial Memoria encounter encounter l [facility] History of History of Problem Resolve Univers Chronic Chronic d ity of GERD GERD [place] Physici [facility] Limb pain Limb pain Problem Active Uni vers ity of [place] [facility] Peripheral Peripheral Problem Active U nivers vascular vascular ity of disease disease [place] [facility] Parkinson' Parkinson' Problem Active U nivers s disease s disease ity of [place] [facility] History of History of Problem Resolve Univers vitamin D vitamin D d ity of deficiency deficiency [place] [facility] Spondylosi Problem 2017-02-06 M emoria s without 00:18:32 l myelopathy Negro n or Spondylosi radiculopa s without thy, myelopathy lumbar or region radiculopa thy, lumbar region 02/06/2017 [facility] Other Problem 2018-01-07 Memor ia interverte 12:08:34 l bral disc Other Negro n degenerati interverte on, lumbar bral disc region degenerati on, lumbar region 01/07/2018 [facility] Spinal Problem 2018-01-07 Memor ia stenosis, 12:08:34 l lumbar Spinal Santy region stenosis, without lumbar neurogenic region claudicati without on neurogenic claudicati on 01/07/2018 [facility] Spinal Problem 2018-01-07 Memor ia stenosis, 12:08:34 l lumbosacra Spinal Herm kd l region stenosis, lumbosacra l region 01/07/2018 [facility] LT LEG/ARM Diagnosis Active 2015-11-29 Memoria UDU PANCHO 13:11:00 l LT Formoso LEG/ARM UDU PANCHO Active [facility] LT LEG/ARM Diagnosis Active 2016-01-01 Memoria 09:51:00 l LT Formoso LEG/ARM Active [facility] SPONDYLOSI Diagnosis Active 2017-02-03 Memoria S W/O 05:28:00 l MYELOPATHY Negro n OR SPONDYLOSI RADICULOPA S W/O MYELOPATHY OR RADICULOPA Active [facility] RADICULOPA Diagnosis Active 2017-02-03 Memoria THY, 05:28:00 l LUMBAR Santy REGION RADICULOPA THY, LUMBAR REGION Active [facility] 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 ctomy 2-27 12:08:34 12:08:34 l syndrome, 05:33: Formoso not 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, not elsewhere classified 10/07/2017 01/07/2018 ANT Hernandez Allergies, Adverse Reactions, Alerts Allergy Allergy Status Severity Reaction(s) Onset Inactive Treating Comm ents Source Name Type Date Date Clinician traMADol drug Active Univers HCl TABS allergy [facility] [place] [facility] traMADol traMADol Active Memori a l [place] Social History Social Habit Start Date Stop Date Quantity Comments Source Sex Assigned At Fritz Rees Smoking Status Start Date Stop Date Source Social History [facility] Medications Ordered Filled Start Stop Current Ordering Indication Dosage Frequency Signature Comments Components Source Medication Medication Date Date Medication? Clinician (SIG) Name Name Transderm Transderm 2018-08 Yes Vilma [address] [facility] Scop (1.5 Scop (1.5 2-17 [place] skin Luke s - MG) MG) 00:00: behind the Memoria 00 ear as l needed Outpati ent Clinics Neupro 8 Neupro 8 Yes ANTONETTE Apply 1 Univers MG/24HR MG/24HR 5-17 NG M.D. Patch it y of Transdermal Transdermal 00:00: Every 24 [place] Patch 24 Patch 24 00 hours as Phy sici Hour Hour directed. ans Neupro 2 Neupro 2 Yes 4mg /24hrs Univers MG/24HR MG/24HR 4-19 ity of Transdermal Transdermal 00:00: [place] Patch 24 Patch 24 00 Physici Hour Hour ans Rasagiline Rasagiline Yes 1 QD TAKE 1 Univers Mesylate 1 Mesylate 1 4-19 TABLET i ty of MG Oral MG Oral 00:00: DAILY [place] Tablet Tablet 00 Physici ans Diclofenac Diclofenac Yes ARIEL QD APPLY TO Univers Sodium 1 % Sodium 1 % 8-04 NIKOLE MNelda UPPER ity of Transdermal Transdermal 00:00: EXTREMITIE [place] Gel Gel 00 S, 2 GM OF Physici GEL TO ans AFFECTED AREA 4 TIMES DAILY. DO NOT APPLY MORE THAN 8 GM DAILY TO ANY ONE AFFECTED JOINT. Senokot 2017-0 No 2 tab, Memoria 02-04 Route: PO, l 14:00: Dosing Formoso 00 Weight 43.324, kg, Daily, Start date: 02/04/17 9:00:00 CDT, Duration: 30 day, Stop date: 03/05/17 9:00:00 CDT heparin 2017-0 No 5,000 Memoria sodium, -27 unit, l porcine 13:00: Route: Formoso 2500 UNT/ML 00 SUB-Q, Injectable Drug form: Solution INJ, Q12H, Dosing Weight 43.324, kg, Start date: 02/04/17 8:00:00 CDT, Duration: 30 day, Stop date: 03/05/17 21:00:00 CDT Famotidine 2017-0 No 20 mg, 1 Mem oria 20 MG Oral 02-04 tab, l Tablet 02:00: Route: PO, Valentina nn [Pepcid] 00 Drug form: TAB, Q12H, Dosing Weight 43.324, kg, Start date: 02/03/17 21:00:00 CDT, Duration: 30 day, Stop date: 03/05/17 9:00:00 CDT Docusate 2017-0 No 100 mg, 1 Magno andrew Sodium 100 02-03 cap, l MG Oral 22:00: Route: PO, Herm kd Capsule 00 BID, [Colace] Dosing Weight 43.324, kg, Start date: 02/03/17 17:00:00 CDT, Duration: 30 day, Stop date: 03/05/17 9:00:00 CDT Cefazolin 2017-0 No 1 gm, Memoria 02-03 Route: l 21:00: IVPB, Drug Santy form: INJ, Q8H, Dosing Weight 43.324, kg, Start date: 02/03/17 16:00:00 CDT, Duration: 3 doses or times, Stop date: 02/04/17 8:00:00 CDT, ABX Indication : Surgical Prophylaxi s Pepcid 2017-0 No 20 mg, Memoria 02-03 Route: l 15:38: IVP, ONCE, Formoso 00 Dosing Weight 43.324, kg, Start date: 02/03/17 10:38:00 CDT, Stop date: 02/03/17 10:38:00 CDT Reglan 2017-0 No 10 mg, Memoria 02-03 Route: l 15:38: IVPB, Formoso 00 ONCE, Dosing Weight 43.324, kg, Start date: 02/03/17 10:38:00 CDT, Stop date: 02/03/17 10:38:00 CDT 72 HR 2016-0 Yes 1 patch, Memoria Scopolamine 02-03 Route: l 0.0139 15:04: TOP, Drug Negro n MG/HR 00 Form: Transdermal ERFILM, Patch Dosing Weight 43.324, kg, ONCE, Apply behind ear. Avoid use in elderly., Start date: 02/03/17 10:04:00 CDT, Stop date: 02/03/17 10:04:00 CDT Promethazin 2017-0 No 6.25 mg, Me moria e 02-03 Route: l 15:04: IVPB, Santy 00 ONCE, Dosing Weight 43.324, kg, PRN Nausea & Vomiting, Start date: 02/03/17 10:04:00 CDT Ondansetron 2017-0 No 4 mg, Memor ia 02-03 Route: l 15:04: IVP, ONCE, Santy 00 Dosing Weight 43.324, kg, PRN Nausea & Vomiting, Start date: 02/03/17 10:04:00 CDT Meperidine 2017-0 No 12.5 mg, Mem oria 02-03 Route: l 15:04: IVP, Santy 00 Q30Min, Dosing Weight 43.324, kg, PRN Other -See Comment, For shivering, Start date: 02/03/17 10:04:00 CDT, Duration: 2 doses or times, Stop date: Limited # of times Naloxone 2017-0 No 0.4 mg, Memori a 02-03 Route: l 15:04: IVP, Santy 00 Q2MIN, Dosing Weight 43.324, kg, PRN Narcotic Reversal, Start date: 02/03/17 10:04:00 CDT, Duration: 8 doses or times, Stop date: Limited # of times Flumazenil 2016-0 No 0.2 mg, Magno andrew 02-03 Route: l 15:04: IVP, PRN, Santy 00 Dosing Weight 43.324, kg, PRN Benzodiaze pine Reversal, Initial dose, Start date: 02/03/17 10:04:00 CDT, Duration: 30 day, Stop date: 03/05/17 10:03:00 CDT Diphenhydra 2017-0 No 12.5 mg, Me moria mine 02-03 Route: l 15:04: IVP, Drug form: INJ, Q6H, Dosing Weight 43.324, kg, PRN Itching, Start date: 02/03/17 10:04:00 CDT, Duration: 30 day, Stop date: 03/05/17 10:03:00 CDT Ketorolac 2017-0 Yes 30 mg, Memori a 02-03 Route: l 15:04: IVP, ONCE, Dosing Weight 43.324, kg, Start date: 02/03/17 10:04:00 CDT, Duration: 1 doses or times, Stop date: 02/03/17 10:04:00 CDT Oxycodone 2017-0 No 5 mg, Memoria 02-03 Route: PO, l 15:04: Drug form: Santy 00 TAB, Q4H, Dosing Weight 43.324, kg, PRN Pain Score 4-6, Start date: 02/03/17 10:04:00 CDT, Duration: 30 day, Stop date: 03/05/17 10:03:00 CDT Fentanyl 2017-0 No 25 Memoria 02-03 microgram, l 15:04: Route: Santy 00 IVP, Q5Min, Dosing Weight 43.324, kg, PRN Pain Score 4-6, Priority: Routine, Start date: 02/03/17 10:04:00 CDT, Duration: 4 doses or times, Stop date: Limited # of times Morphine 2017-0 No 2 mg, Memoria 02-03 Route: l 15:04: IVP, Formoso 00 Q5Min, Dosing Weight 43.324, kg, PRN Pain Score 4-6, Start date: 02/03/17 10:04:00 CDT, Duration: 5 doses or times, Stop date: Limited # of times Hydromorpho 2017-0 No 0.5 mg, Mem oria ne 02-03 Route: l 15:04: IVP, Santy 00 Q5Min, Dosing Weight 43.324, kg, PRN Pain Score 7-10, Start date: 02/03/17 10:04:00 CDT, Duration: 4 doses or times, Stop date: Limited # of times Calcium 2017-0 No 1,000 mL, Memor ia Chloride 02-03 Rate: 125 l 0.0014 15:04: ml/hr, Santy MEQ/ML / 00 Infuse Potassium over: 8 Chloride hr, Route: 0.004 IV, Dosing MEQ/ML / Weight Sodium 43.324 kg, Chloride Total 0.103 Volume: MEQ/ML / 1,000, Sodium Start Lactate date: 0.028 02/03/17 MEQ/ML 10:04:00 Injectable CDT, Solution Duration: 30 day, Stop date: 03/05/17 10:03:00 CDT magnesium 2017-0 No 300 ml, Memor ia citrate 02-03 Route: PO, l 14:25: Drug Form: Santy 00 LIQ, Dosing Weight 43.324, kg, ONCE, PRN Constipati on, Start date: 02/03/17 9:25:00 CDT Acetaminoph 2017-0 No 1 tab, Magno andrew en 325 MG / 02-03 Route: PO, l Hydrocodone 14:25: Drug Form: Santy Bitartrate 00 TAB, 5 MG Oral Dosing Tablet Weight 43.324, kg, Q4H, PRN Pain, Start date: 02/03/17 9:25:00 CDT, Duration: 30 day, Stop date: 03/05/17 9:24:00 CDT Dilaudid 2017-0 No 0.5 mg, Memori a 02-03 Route: IV, l 14:25: Q3H, Santy 00 Dosing Weight 43.324, kg, PRN Pain, Start date: 02/03/17 9:25:00 CDT, Duration: 30 day, Stop date: 03/05/17 9:24:00 CDT Zofran 2017-0 No 4 mg, Memoria 02-03 Route: IV, l 14:25: Drug form: Formoso 00 INJ, Q8H, Dosing Weight 43.324, kg, PRN Nausea, Start date: 02/03/17 9:25:00 CDT, Duration: 30 day, Stop date: 03/05/17 9:24:00 CDT Sodium No 1,000 mL, Memori a Chloride 02-03 Rate: 75 l 0.154 14:25: ml/hr, MEQ/ML 00 Infuse Injectable over: 13.3 Solution hr, Route: IV, Dosing Weight 43.324 kg, Total Volume: 1,000, Start date: 02/03/17 9:25:00 CDT, Duration: 30 day, Stop date: 03/05/17 9:24:00 CDT neostigmine No Route: IV, Memoria (ANES) 02-03 Drug form: l 14:16: INJ, ONCE, Stop date: 02/03/17 9:16:00 CDT glycopyrrol No Route: IV, Memoria ate (ANES) 02-03 Drug form: l 14:16: INJ, ONCE, Stop date: 02/03/17 9:16:00 CDT rocuronium No Route: IV, M emoria (ANES) 02-03 Drug form: l 13:47: INJ, ONCE, Stop date: 02/03/17 8:47:00 CDT dexamethaso No Route: IV, Memoria ne (ANES) 02-03 Drug form: l 13:47: INJ, ONCE, Stop date: 02/03/17 8:47:00 CDT ceFAZolin No Route: IV, Me moria (ANES) 02-03 Drug form: l 13:42: INJ, ONCE, Stop date: 02/03/17 8:42:00 CDT acetaminoph No Route: IV, Memoria en (ANES) 02-03 Drug form: l 13:42: INJ, ONCE, Stop date: 02/03/17 8:42:00 CDT ondansetron No Route: IV, Memoria (ANES) 02-03 Drug form: l 13:42: INJ, ONCE, Stop date: 02/03/17 8:42:00 CDT lidocaine No Route: IV, Me moria (ANES) 02-03 Drug form: l 13:12: INJ, ONCE, Stop date: 02/03/17 8:12:00 CDT midazolam No Route: IV, Me moria (ANES) 02-03 Drug form: l 13:12: SOLN, Formoso 00 ONCE, Stop date: 02/03/17 8:12:00 CDT propofol No Route: IV, Mem oria (ANES) 02-03 Drug form: l 13:12: INJ, ONCE, Stop date: 02/03/17 8:12:00 CDT fentaNYL No Route: IV, Mem oria (ANES) 02-03 Drug form: l 13:12: INJ, ONCE, Stop date: 02/03/17 8:12:00 CDT Calcium No 1,000 mL, Memor ia Chloride 02-03 Rate: 25 l 0.0014 12:49: ml/hr, MEQ/ML / 00 Infuse Potassium over: 40 Chloride hr, Route: 0.004 IV, Dosing MEQ/ML / Weight Sodium 43.324 kg, Chloride Total 0.103 Volume: MEQ/ML / 1,000, Sodium Start Lactate date: 0.028 02/03/17 MEQ/ML 7:49:00 Injectable CDT, Solution Duration: 30 day, Stop date: 03/05/17 7:48:00 CDT LR 1000 mL No Route: IV, M emoria INJ (ANES) 02-03 Total l 12:39: Volume: Formoso 00 1,000, Start date: 02/03/17 7:39:00 CDT, Stop date: 02/03/17 8:39:00 CDT Carbidopa Yes 25 mg, PO, Me moria 01-27 TID, 0 l 16:14: Refill(s) Vital Signs Vital Name Observation Time Observation Value Comments Source BP Systolic 2017-11-27 13:25:00 137 mm[Hg] [facility] Physician s BP Diastolic 2017-11-27 13:25:00 76 mm[Hg] [facility] s Height 2017-11-27 13:25:00 61 [in_us] [facility]ician s Weight 2017-11-27 13:25:00 96 [lb_av] [facility] Physician s Body Mass Index 2017-11-27 13:25:00 18.14 kg/m2 Unive rsity of Calculated [place] Physician s Heart Rate 2017-11-27 13:25:00 93 /min [facility]ician s BMI Calculated 2017-10-21 20:01:00 Memori al Formoso Height 2017-10-21 20:01:00 157.48 cm Memorial Formoso Weight 2017-10-21 20:01:00 [facility] Formoso Systolic (mm Hg) 2017-10-21 20:01:00 Magno rial Santy Diastolic (mm Hg) 2017-10-21 20:01:00 Mem orial Formoso Heart Rate 2017-10-21 20:01:00 [facility] Formoso Weight 2017-07-29 18:45:00 Memorial Santy BMI Calculated 2017-07-29 18:45:00 Memori al Formoso Height 2017-07-29 18:45:00 152.4 cm Memorial Santy Systolic (mm Hg) 2017-02-03 17:15:00 Magno rial Formoso Diastolic (mm Hg) 2017-02-03 17:15:00 Mem orial Formoso Systolic (mm Hg) 2017-02-03 16:30:00 Magno rial Formoso Diastolic (mm Hg) 2017-02-03 16:30:00 Mem orial Formoso Systolic (mm Hg) 2017-02-03 15:30:00 Magno rial Formoso Diastolic (mm Hg) 2017-02-03 15:30:00 Mem orial Santy Respitory Rate 2017-02-03 15:30:00 Memori al Formoso Heart Rate 2017-02-03 15:30:00 Memorial Formoso Heart Rate 2017-02-03 15:15:00 Memorial Formoso Respitory Rate 2017-02-03 15:15:00 Memori al Formoso Heart Rate 2017-01-27 16:13:00 Memorial Santy Temperature Oral (F) 2017-01-27 16:13:00 98.2 F Memorial Santy Weight 2017-01-27 16:13:00 [facility] Formoso BMI Calculated 2017-01-27 16:13:00 Memori al Santy Height 2017-01-27 16:13:00 157.48 cm [facility] Formoso Procedures Procedure Date / Time Performed Performing Clinician [facility] e Brain WARREN Scan 2017-12-05 00:00:00 [facility]icians CVRAD - MIQUEL - [id number] 2017-10-27 00:00:00 [facility] History of Back [facility] surgery Physicians Plan of Care Planned Activity Planned Date Details Comments Source Future Scheduled 2020-03-11 INFLUENZA VACCINE [place] [facility] 00:00:00 [code = INFLUENZA VACCINE] Future Scheduled 2009-10-18 BREAST CANCER [place] [facility] 00:00:00 SCREENING [code = BREAST CANCER SCREENING] Future Scheduled 2009-10-18 COLONOSCOPY SCREENING [place] [facility] 00:00:00 [code = COLONOSCOPY SCREENING] Future Scheduled 2009-10-18 SHINGLES VACCINES [place] [facility] 00:00:00 (#1) [code = SHINGLES VACCINES (#1)] Future Scheduled 1980-10-18 Screening for [facility] thodist Test 00:00:00 malignant neoplasm of cervix (procedure) [code = 159630722] Encounters Start End Encounter Admission Attending Care Care Encounter Source Date/Time Date/Time Type Type Clinicians Facility Department ID 2019-10-08 2019-10-08 [facility] [id number] [facility] 14:36:00 14:36:00 [facility] Medicine l Medicine Outpati ent Clinics 2019-08-30 2019-08-30 [facility] [id number] [facility] 09:00:00 09:00:00 [facility] Medicine l Medicine Outpati ent Clinics 2019-07-27 2019-07-27 [facility] [id number] 10:00:00 10:00:00 [facility] Medicine l Medicine Outpati ent Clinics 2019-07-20 2019-07-20 [facility] [id number] 14:20:00 14:20:00 [facility] Medicine l Medicine Outpati ent Clinics 2019-05-24 2019-05-24 [facility] [id number] 16:00:00 16:00:00 [facility] Medicine l Medicine Outpati ent Clinics 2019-04-20 2019-04-20 [facility] [id number] 14:40:00 14:40:00 [facility] Outpati ent Clinics 2019-04-13 2019-04-13 Outpatient Evi Steve [id number] [facility] 15:37:00 15:37:00 Rolando Marshall Lyn kes - DO DO [facility] Outpati ent Clinics 2019-04-13 2019-04-13 [facility] [id number] 15:19:00 15:19:00 t [facility] Outpati ent Clinics 2019-03-23 2019-03-23 [facility] [id number] 09:00:00 09:00:00 t [facility] Outpati ent Clinics 2018-01-02 2018-01-02 Outpatient Hernandez [facility] [id number] 09:54:00 23:59:00 Antonette Miller 2017-11-27 2017-11-27 Appointmen JAYY NG Neurology [id number] Univers 13:00:00 13:00:00 t; ANTONETTE NG ity of [place], M.D. [place] M.D. [facility] ans 2017-11-11 2017-11-11 Appointmen JAYY LAYTON [facility] [id number] Univers 09:30:00 09:30:00 t; HOSSEIN LAYTON cic and ity franck CATALAN M.D. Vascular Joe Begum Surgery at [facility] 2017-10-27 2017-10-27 Appointmen MARIA LUISA [facility] Cardi[facility]ora [id number] Univers 11:00:00 11:00:00 t; SE anthony and ity of VASCULAR, Vascular [place] SE Surgery at [facility] ans 2017-10-21 2017-10-21 Outpatient Sally MHMISCHER MHMISCHER [id number] 13:45:00 23:59:59 Jamil 12 Reuben 2017-10-08 2017-10-09 Outpatient MHMISCHER MHMISCHER [id number] 15:35:00 23:59:59 14 2017-10-01 2017-10-01 Outpatient JOSE RAUL Cuello MHOIP [id number] 08:51:00 23:59:00 Joseph Westfall 05 2017-07-29 2017-07-29 Outpatient Sally, MHMISCHER MHMISCHER [id number] 10:45:00 23:59:59 Jamil 11 Reuben 2017-07-16 2017-07-17 Outpatient MHMISCHER MHMISCHER [id number] 09:33:00 23:59:59 13 2017-07-07 2017-07-08 Outpatient MHMISCHER MHMISCHER [id number] 15:23:00 23:59:59 12 2017-06-26 2017-06-27 Outpatient MHMISCHER MHMISCHER [id number] 13:30:00 23:59:59 11 2017-06-26 2017-06-27 Outpatient MHMISCHER MHMISCHER [id number] 09:37:00 23:59:59 10 2017-06-26 2017-06-27 Outpatient MHMISCHER MHMISCHER [id number] 09:35:00 23:59:59 09 2017-06-27 2017-06-27 Outpatient Sally, MHOIP MHOIP [id number] 06:24:00 23:59:00 Jamil Demetri-Riddle 2017-05-30 2017-05-30 JAYY Carreno UTP [id number] Univers 10:30:00 10:30:00 t; HOSSEIN LAYTON ity of [place], M.D. [place] M.D. Physici ans 2017-03-28 2017-03-28 Outpatient Sally, MHOIP MHOIP [id number] 13:54:00 23:59:00 Jamil DemetriDeisi 2017-03-14 2017-03-14 AppointJAYY Sotelo UTP [id number] Univers 15:45:00 15:45:00 t; ARIEL AGUSTIN M.D. ity of [place], [place] M.D. Physici ans 2017-02-03 2017-02-03 Outpatient Sally, MHSE MHSE [id number] 05:28:00 13:03:00 Jamil 03 Reuben 2016-02-28 2016-02-28 Outpatient Mik, MHOIP MHOIP [id number] 13:07:00 23:59:00 Hilario Deluna 2016-02-07 2016-02-07 Outpatient Mik, [id number]. [id number] 11:33:00 23:59:00 Hilario Deluna [id number] 2016-01-01 2016-01-30 Outpatient Jurgen, [id number]. [id number] 09:49:00 23:59:00 Rishi Kathleen [id number] 2015-11-29 2015-12-28 Outpatient Qumichelle, 2.16.840. [id number]. [id number] 13:00:00 23:59:00 Firmaisha Hever [id number] [id number] 2015-06-22 2015-06-22 Outpatient Calos [facility] [id number] 09:57:00 23:59:00 Britton 2015-03-03 2015-03-03 Outpatient Shay [facility] [id number] 18:27:00 23:59:00 Fe Irvin Results Test Description Test Test Results Result Source Time Comments Comments NM Brain scan 2017-12- EXAM: [place] Brain Imaging [facility] [id number] SPECTDATE: 01/02/2018 Bradley as 10:15:00 10:11 AM CDTINDICATION: Cindy gilmore Brain WARREN Scan-DX: Parkinson's Disease - Brain WARREN Scan-DX:Parkinson's Disease, evaluate for Parkinson diseaseCOMPARISON: Brain MRI from June 27, 2017.TECHNIQUE:After intravenous administration of 3 mCi of I-123 Ioflupane, delayed SPECTimages of the head were obtained at 4 hours post injection.FINDINGS:Righ t striatum:There is decreased tracer uptake in the right putamen with a Z score of -2.6 (Z scores represent standard deviation from normal age match population and aresignificant if less than -1.6).There is decreased tracer uptake in the right caudate with a Z score of -2.01.The right striatum contributes 43% of the remaining dopamine transporterfunction with a Z score of -2.47 .Left striatum:Decrease tracer uptake in the left putamen is seen with a Z score of -1.79.Tracer uptake is normal in the left caudate with a Z score of -1.55.The left striatum contributes 57% of the remaining dopamine transporterfunction with a Z score of -1.72.The remainder of tracer distribution in background brain parenchyma is withinnormal limits.IMPRESSION:The scan findings are suggestive of dysfunction of the dopamine transporters(right greater than left striata), suggestive of Parkinson disease.--This report was dictated by a Compliance Aide/Fellow. I have personallyreviewed the images aswell as the Resident's interpretation and agree with the findings.Read by: Robert Michaels MD Resident: Robert Michaels MDDictated Date/time: 01/06/18 09:33Electronically Signed by: Janneth Wilkinson MD 01/06/1817:16FINAL REPORT BLOOD BANK 2017-01- Negative (01/27/17 11:42 [facility] RESULTS 19 AM) [facility] 16:42:00 CHEM PANEL 3.1 [facility] 19 Santy 16:42:00 CHEM PANEL .9 [facility] 19 Santy 16:42:00 CHEM PANEL 1.3 [facility] 19 Formoso 16:42:00 CHEM PANEL [facility] 19 Formoso 16:42:00 CHEM PANEL [facility] 19 Santy 16:42:00 CHEM PANEL [facility] 16:42:00 CHEM PANEL 0.3 [facility] 16:42:00 CHEM PANEL [facility] [place] 16:42:00 CHEM PANEL [facility] 16:42:00 CHEM PANEL [facility] 19 [place] 16:42:00 CHEM PANEL [facility] 19 [place] 16:42:00 CHEM PANEL 0.68 [facility] [place] 16:42:00 CHEM PANEL [facility] [place] 16:42:00 CHEM PANEL [facility] [place] 16:42:00 CHEM PANEL 4.9 [facility] [place] 16:42:00 CHEM PANEL [facility] [place] 16:42:00 CHEM PANEL 9.6 [facility] 16:42:00 CHEM PANEL 7.2 [facility] 16:42:00 CHEM PANEL 2017-01-12.1 [facility] 16:42:00 HEMATOLOGY 0.4 [facility] 16:42:00 HEMATOLOGY 2017-01-12.5 [facility] 16:42:00 HEMATOLOGY 1.6 [facility] [place] 16:42:00 HEMATOLOGY 0.7 [facility] 16:42:00 HEMATOLOGY .5 [facility] [place] 16:42:00 HEMATOLOGY 2017-01-13.9 [facility] [place] 16:42:00 HEMATOLOGY .5 [facility] [place] 16:42:00 HEMATOLOGY .4 [facility] [place] 16:42:00 HEMATOLOGY 0.95 [facility] [place] 16:42:00 HEMATOLOGY 2017-01-27 16:42:00 Test Item Value Reference Range Interpretation Comme nts PTT (test code = PTT) 25.1 s 22.9-35.8 [facility] [id number] 16:42:00 Test Item Value Reference Range Interpretation Comments PT (test code = PT) 12.9 s 12.0-14.7 [facility] [id number] 16:42:008.1[facility] 2017-01-27 16:42:08215Papirwyh [id number] 16:42:0012.9[facility] [id number] 16:42:0013.6[facility] [id number] 16:42:0039.5[facility] [id number] 16:42:004.26[facility] [id number] 16:42:006.6[facility] [id number] 16:42:00 Test Item Value Reference Range Interpretation Comments MCH (test code = MCH) 31.9 pg 27.0-31.0 [facility] [id number] 16:42:0034.4[facility] 2017-01-27 16:42:0092.7[facility]
[2020-01-21 00:47] LABS: Urine Blood NEGATIVE (NEG); Urine Glucose NEGATIVE (NEG); Urine Protein NEGATIVE (NEG); Urine Specific Gravity 1.015 (1.005-1.030); Urine pH 6.5 (5.0-7.0)
[2020-01-21 01:13] LABS: Absolute Lymphocytes (CBC) 1.6 K/uL (0.7-4.9); Basophils % 0.4 % (0-1.3); Hematocrit 42.1 % (36.0-45.0); Lymphocytes % 22.9 % (15.3-44.8); MPV 8.3 fL (7.6-11.3); Protime INR 0.93; RBC Red Blood Cell Count 4.49 M/uL (3.86-4.86)
[2020-01-21] MEDS ORDERED: NA CHLORIDE 0.9% 500 ML ONE (01:13)
[2020-01-21 01:31] LABS: Urine Bacteria 20-50 /HPF (<20); Urine Culture Reflex Order NOT NEEDED; Urine RBC <5 /HPF (NONE SEEN)
[2020-01-21 01:37] LABS: ALT/SGPT 11 U/L (12-78); AST/SGOT 15 U/L (15-37); Albumin 4.3 g/dL (3.4-5.0); Alkaline Phosphatase 182 U/L (45-117); BUN Blood Urea Nitrogen 14 mg/dL (7-18); Bicarbonate 27 mmol/L (21-32); Bilirubin Direct 0.1 mg/dL (0-0.2); Bilirubin Total 0.5 mg/dL (0.2-1.0); Glucose Level 115 mg/dL (74-106); Magnesium 2.1 mg/dL (1.8-2.4); NT PRO-BNP 28 pg/mL (<125); Potassium 3.6 mmol/L (3.5-5.1); Protein, Total 7.8 g/dL (6.4-8.2); Sodium Level 142 mmol/L (136-145); Troponin (Emerg Dept Use Only) < 0.02 ng/mL (0.0-0.045)
[2020-01-21] MEDS ORDERED: CEFTRIAXONE/SWI 1gm 1 GM/10 ML SYR ONE (02:26)
--- NOTE | 2020-01-21 03:07 | ER ---
Nurse's Notes [facility] Name: Chelsi Martinez Age: 59 yrs Sex: Female : 1960 Arrival Date: 01/20/2020 Time: 23:53 Bed 7 Private MD: Vilma Sánchez Diagnosis: Superficial injury of head;Contusion of unspecified part of neck;Urinary tract infection, site not specified Presentation: 01/20 00:00 Chief complaint: pt grandson states my dad said she was confused and seeing my sg aunt and one of her relatives that is no longer living, I got home and heard a noise in the hallway, when I opened my door I saw her sitting upright in the lynn and she told me the back of her head hurt, theres a bump on the back of her head, shes reported feeling chilled as well. Coronavirus screen: Proceed with normal triage. Ebola Screen: Patient negative for fever greater than or equal to 101.5 degrees Fahrenheit, and additional compatible Ebola Virus Disease symptoms Patient denies exposure to infectious person. Patient denies travel to an Ebola-affected area in the 21 days before illness onset. No symptoms or risks identified at this time. Mechanism of Injury: The problem was sustained at a relative's home, inside, resulted from a fall, from a standing position. Initial Sepsis Screen: Does the patient meet any 2 criteria? HR > 90 bpm. Does the patient have a suspected source of infection? Yes: Dysuria/Frequency/Urgency/UTI. Risk Assessment: Do you want to hurt yourself or someone else? Patient reports no desire to harm self or others. Onset of symptoms was January 21, 2020. Care prior to arrival: None. Transition of care: patient was not received from another setting of care. 00:00 Method Of Arrival: Ambulatory sg 00:00 Acuity: RUI 2 sg Triage Assessment: 00:00 General: Appears in no apparent distress. uncomfortable, ill, slender, Behavior is vc cooperative, anxious, flat. Pain: Complains of pain in left low back and right low back. Neuro: Level of Consciousness is awake, obeys commands, lethargic, listless, Oriented to person, place, time, Reports weakness. Historical: - Allergies: 00:09 No Known Allergies; sg - Home Meds: 00:09 Mirtazapine Oral [Active]; Carbidopa-Levodopa Oral [Active]; sg - PMHx: 00:09 Parkinsons; sg - PSHx: 00:09 back surgery; sg - Immunization history:: Adult Immunizations up to date. - Social history:: Smoking status: Patient denies any tobacco usage or history of. Screenin:00 Abuse screen: Denies threats or abuse. Nutritional screening: No deficits noted. vc Tuberculosis screening: No symptoms or risk factors identified. Fall Risk None identified. Assessment: 00:00 General: Appears in no apparent distress. uncomfortable, ill, slender, Behavior is vc calm, appropriate for age, anxious, flat, listless. Pain: Complains of pain in right low back and left low back Pain does not radiate. Pain currently is 10 out of 10 on a pain scale. Quality of pain is described as sharp. Neuro: Level of Consciousness is awake, obeys commands, lethargic, listless, Oriented to person, place, time, situation. Cardiovascular: Capillary refill < 3 seconds Patient's skin is warm and dry. Respiratory: Respiratory effort is even, unlabored, Respiratory pattern is regular, symmetrical. GI: No signs and/or symptoms were reported involving the gastrointestinal system. : Reports burning with urination, urinary frequency. Derm: Skin is intact, is healthy with good turgor, Skin temperature is warm. 01:00 Reassessment: Patient appears in no apparent distress at this time. Patient and/or vc family updated on plan of care and expected duration. Pain level reassessed. 01:53 Reassessment: Patient appears in no apparent distress at this time. Patient and/or vc family updated on plan of care and expected duration. Pain level reassessed. Patient states symptoms have not improved. 02:25 Reassessment: Patient appears in no apparent distress at this time. Patient and/or jd3 family updated on plan of care and expected duration. Pain level reassessed. Dr. Holland at bedside. pt A\T\O X 2, pt confused, oriented to self and situation. 02:49 Reassessment: Patient and/or family updated on plan of care and expected duration. Pain jd3 level reassessed. Patient is alert, oriented x 3, equal unlabored respirations, skin warm/dry/pink. provider at bedside. General: Appears in no apparent distress. comfortable, Behavior is calm, cooperative, appropriate for age. Pain: Complains of pain in back Quality of pain is described as aching. Neuro: Level of Consciousness is awake, alert, obeys commands, Oriented to person, place, situation. Cardiovascular: Capillary refill < 3 seconds Patient's skin is warm and dry. Respiratory: Airway is patent Respiratory effort is even, unlabored, Respiratory pattern is regular, symmetrical. GI: No signs and/or symptoms were reported involving the gastrointestinal system. : Reports burning with urination, urinary frequency. EENT: No signs and/or symptoms were reported regarding the EENT system. Derm: Skin is intact, Skin is dry, Skin is normal, Skin temperature is warm. Musculoskeletal: Circulation, motion, and sensation intact. Range of motion: intact in all extremities. Vital Signs: 00:00 BP 114 / 82; Pulse 97; Resp 18; Temp 97.6; Pulse Ox 96% on R/A; Weight 63.5 kg (R); sg Pain 6/10; 01:00 BP 142 / 94; Pulse 90; Resp 18; Pulse Ox 100% on R/A; vc 01:51 BP 133 / 75; Pulse 85; Resp 18; Pulse Ox 100% on R/A; vc 02:49 BP 159 / 75; Pulse 95; Resp 20 S; Pulse Ox 100% on R/A; jd3 Alliance Coma Score: 00:00 Eye Response: spontaneous(4). Verbal Response: confused(4). Motor Response: localizes sg pain(5). Total: 13. 02:55 Eye Response: spontaneous(4). Verbal Response: oriented(5). Motor Response: obeys rn commands(6). Total: 15. ED Course: 01/19 23:53 Patient arrived in ED. es 23:54 Krista Feliciano, EDWARD is Primary Nurse. vc 01/20 00:00 Angel Sanderson PA is PHCP. jmm 00:00 Pola Holland MD is Attending Physician. jmm 00:00 Patient has correct armband on for positive identification. Bed in low position. Side vc rails up X2. Adult w/ patient. radiation monitor on. Pulse ox on. NIBP on. Warm blanket given. 00:03 Arm band placed on. sg 00:08 Triage completed. sg 00:09 None, None is Private Physician. sg 00:11 Rodolfo Sáncheza is Private Physician. sg 00:39 XRAY Chest (1 view) In Process Unspecified. EDMS 00:59 CT Head C Spine In Process Unspecified. EDMS 02:48 Primary Nurse role handed off by Krista Feliciano RN jd3 02:48 Avel Moya RN is Primary Nurse. jd3 02:51 No provider procedures requiring assistance completed. IV is patent, is intact, with jd3 fluids infusing freely, with good blood return, 22 G in the left AC. 03:22 IV discontinued, intact, bleeding controlled, No redness/swelling at site. Pressure jd3 dressing applied. Administered Medications: 01:15 Drug: NS 0.9% 500 ml Route: IV; Rate: bolus; Site: right antecubital; vc 02:15 Follow up: Response: No adverse reaction; IV Status: Completed infusion; IV Intake: jd3 500ml 02:24 Drug: Rocephin 1 grams Route: IV; Rate: calculated rate; Site: right antecubital; jd3 03:00 Follow up: Response: No adverse reaction; IV Status: Completed infusion; IV Intake: [id number] Intake: 02:15 IV: 500ml; Total: 500ml. jd3 03:00 IV: 10ml; Total: 510ml. jd3 Outcome: 03:06 Discharge ordered by . rn 03:15 Discharged to home via wheelchair, with family. jd3 03:15 Condition: stable 03:15 Discharge instructions given to patient, family, Instructed on discharge instructions, follow up and referral plans. medication usage, Demonstrated understanding of instructions, follow-up care, medications, Prescriptions given X 1. 03:16 Patient left the ED. sg Signatures: Dispatcher [employer] Michelet Flores RN RN sg Mickail, Joel, PA PA jmm Salyer, Edna es Nieto, Roman, MD MD rn Davies, Jonathon, RN RN jd3 Calcote, Vanessa, RN RN vc Corrections: (The following items were deleted from the chart) 00:10 00:00 Chief complaint: pt grandson states my dad said she was confused and seeing my sg aunt and one of her relatives that is no longer living, I got home and heard a noise in the hallway, when I opened mt door I saw her sitting upright in the lynn and she told me the back of her head hurt, theres a bump on the back of her head, shes reported feeling chilled as well sg 02:49 02:25 Reassessment: Patient appears in no apparent distress at this time. Patient jd3 and/or family updated on plan of care and expected duration. Pain level reassessed. Dr. Holland at bedside Patient states feeling better. jd3 02:50 02:25 Reassessment: Patient appears in no apparent distress at this time. Patient jd3 and/or family updated on plan of care and expected duration. Pain level reassessed. Dr. Holland at bedside. pt A\T\O X 2, pt confused, oriented to self and situation. Patient states feeling better. jd3
--- NOTE | 2020-01-21 03:07 | EDPHYS ---
Physician Documentation [facility] Name: Chelsi Martinez Age: 59 yrs Sex: Female : 1960 Arrival Date: 01/20/2020 Time: 23:53 Bed 7 Private MD: Vilma Sánchez ED Physician Pola Holland HPI: 01/20 00:12 This 59 yrs old Female presents to ER via Ambulatory with complaints of Head jmm Injury-Adult, disoriented. 00:12 The patient or guardian reports injury, pain. Onset: The symptoms/episode jmm began/occurred acutely, just prior to arrival. Associated signs and symptoms: Loss of consciousness: This patient did not experience any loss of consciousness. Pertinent positives: headache, neck pain. This is a 59 year old female with a history of parkinsons that presents to the ED with a head injury which occurred after tripping and hitting her head against the door. Son states the patient is currently being treated for a UTI. Historical: - Allergies: 00:09 No Known Allergies; sg - Home Meds: 00:09 Mirtazapine Oral [Active]; Carbidopa-Levodopa Oral [Active]; sg - PMHx: 00:09 Parkinsons; sg - PSHx: 00:09 back surgery; sg - Immunization history:: Adult Immunizations up to date. - Social history:: Smoking status: Patient denies any tobacco usage or history of. ROS: 00:12 Constitutional: Negative for fever, chills, and weight loss, Cardiovascular: Negative jmm for chest pain, palpitations, and edema, Respiratory: Negative for shortness of breath, cough, wheezing, and pleuritic chest pain. 00:12 Neuro: Positive for headache. 00:12 All other systems are negative. Exam: 00:12 Constitutional: This is a well developed, well nourished patient who is awake, alert, jmm and in no acute distress. 00:12 Eyes: EOMI, no conjunctival erythema appreciated ENT: Moist Mucus Membranes Neck: Trachea midline, Supple Chest/axilla: Normal chest wall appearance and motion. Cardiovascular: Regular rate and rhythm. No edema appreciated Respiratory: Normal respirations, no respiratory distress appreciated Abdomen/GI: Non distended, soft Back: Normal ROM Skin: General appearance color normal MS/ Extremity: Moves all extremities, no obvious deformities appreciated, no edema noted to the lower extremities Neuro: Awake and alert, normal gait Psych: Behavior is normal, Mood is normal, Patient is cooperative and pleasant 00:12 Head/face: Noted is tenderness. Vital Signs: 00:00 BP 114 / 82; Pulse 97; Resp 18; Temp 97.6; Pulse Ox 96% on R/A; Weight 63.5 kg (R); sg Pain 6/10; 01:00 BP 142 / 94; Pulse 90; Resp 18; Pulse Ox 100% on R/A; vc 01:51 BP 133 / 75; Pulse 85; Resp 18; Pulse Ox 100% on R/A; vc 02:49 BP 159 / 75; Pulse 95; Resp 20 S; Pulse Ox 100% on R/A; jd3 Elizabeth Coma Score: 00:00 Eye Response: spontaneous(4). Verbal Response: confused(4). Motor Response: localizes sg pain(5). Total: 13. 02:55 Eye Response: spontaneous(4). Verbal Response: oriented(5). Motor Response: obeys rn commands(6). Total: 15. MDM: 00:11 Patient medically screened. [facility] 00:16 Data reviewed: vital signs, nurses notes. Counseling: I had a detailed discussion with [facility] the patient and/or guardian regarding:. 00:22 Transition of care: After a detail discussion of the patient's case, care is [facility] transferred to Pola Holland MD. 02:55 Differential diagnosis: Contusion of Concussion UTI, hallucinations from parkinson's rn meds, dehydration. Response to treatment: the patient's symptoms have markedly improved after treatment, and as a result, I will discharge patient. ED course: Pt with neg ct head/cspine, UA shows possible UTI, culture sent. Offered admission for UTI, grandson and father discussed and want her to go home, patient wants to go home. Grandson states appears to be back to baseline. Reports had hallucinations similar to this episode in past, and blamed on parkinson's meds at that time. Per their wishes, will dc home with abx and return precautions. Normal WBC and procalcitonin. . 01/20 00:10 Order name: Basic Metabolic Panel; Complete Time: 01:55 [facility] 01/20 00:10 Order name: CBC with Diff; Complete Time: 01:55 [facility] 01/20 00:10 Order name: LFT's; Complete Time: :55 [facility] 01/20 00:10 Order name: Magnesium; Complete Time: [facility] 01/20 00:10 Order name: NT PRO-BNP; Complete Time: : [facility] 01/20 00:10 Order name: PT-INR; Complete Time: :55 [facility] 01/20 00:10 Order name: Troponin (emerg Dept Use Only); Complete Time: : [facility] 01/20 00:10 Order name: XRAY Chest (1 view) [facility] 01/20 00:10 Order name: CT Head C Spine [facility] 01/20 00:10 Order name: Urine Microscopic Only; Complete Time: : [facility] 01/20 00:10 Order name: Urine Culture [facility] 01/20 00:43 Order name: Urine Dipstick--Ancillary (enter results); Complete Time: 00:53 [facility] 01/20 00:54 Order name: Blood Culture Adult (2) 01/20 00:54 Order name: Procalcitonin; Complete Time: :55 01/20 00:10 Order name: EKG; Complete Time: 00:12 [facility] 01/20 00:10 Order name: Cardiac monitoring; Complete Time: : [facility] 01/20 00:10 Order name: EKG - Nurse/Tech; Complete Time: : [facility] 01/20 00:10 Order name: IV Saline Lock; Complete Time: : [facility] 01/20 00:10 Order name: Labs collected and sent; Complete Time: : [facility] 01/20 00:10 Order name: O2 Per Protocol; Complete Time: : [facility] 01/20 00:10 Order name: O2 Sat Monitoring; Complete Time: : [facility] 01/20 00:10 Order name: Urine Dipstick-Ancillary (obtain specimen); Complete Time: 01: [facility] Administered Medications: 01:15 Drug: NS 0.9% 500 ml Route: IV; Rate: bolus; Site: right antecubital; vc 02:15 Follow up: Response: No adverse reaction; IV Status: Completed infusion; IV Intake: jd3 500ml 02:24 Drug: Rocephin 1 grams Route: IV; Rate: calculated rate; Site: right antecubital; jd3 03:00 Follow up: Response: No adverse reaction; IV Status: Completed infusion; IV Intake: [id number] Disposition: 04:33 Co-signature as Attending Physician, Pola Holland MD. rn Disposition: 01/21/20 03:06 Discharged to Home. Impression: Superficial injury of head, Contusion of unspecified part of neck, Urinary tract infection, site not specified. - Condition is Stable. - Discharge Instructions: Head Injury, Adult, Urinary Tract Infection, Adult. - Prescriptions for Macrobid 100 mg Oral Capsule - take 1 capsule by ORAL route every 12 hours for 7 days; 14 capsule. - Medication Reconciliation Form, Thank You Letter, Antibiotic Education, Prescription Opioid Use form. - Follow up: Private Physician; When: 1 - 2 days; Reason: Recheck today's complaints, Re-evaluation by your physician. - Problem is new. - Symptoms have improved. Signatures: Dispatcher [employer] Michelet Flores RN RN Angel Schmidt PA PA jmm Nieto, Roman, MD MD rn Davies, Jonathon, RN RN jd3 Calcote, Vanessa, RN RN vc Corrections: (The following items were deleted from the chart) 03:16 03:06 01/21/2020 03:06 Discharged to Home. Impression: Superficial injury of head; sg Contusion of unspecified part of neck; Urinary tract infection, site not specified. Condition is Stable. Forms are Medication Reconciliation Form, Thank You Letter, Antibiotic Education, Prescription Opioid Use. Follow up: Private Physician; When: 1 - 2 days; Reason: Recheck today's complaints, Re-evaluation by your physician. Problem is new. Symptoms have improved. rn
[2020-01-21 03:21] VITALS: TEMP 97.6
[2020-01-21 03:22] VITALS: O2SAT 100
[2020-01-21 03:25] VITALS: BP 159/75
--- NOTE | 2020-01-21 07:46 | RAD REPORT ---
EXAM DESCRIPTION: [facility] Single View01/21/2020 12:39 am CLINICAL HISTORY: Chest pain COMPARISON: 2018 FINDINGS: The lungs appear clear of acute infiltrate. The heart is normal size IMPRESSION: No acute abnormalities displayed
--- NOTE | 2020-01-21 11:11 | RAD REPORT ---
EXAM DESCRIPTION: CT - Head C Spine Mpr Wo Con - 01/21/2020 6:37 am CLINICAL HISTORY: Fall, syncope, head injury COMPARISON: None. TECHNIQUE: CT Head and Cervical spine WO contrast on 01/21/2020 12:10 AM CDT This exam was performed according to our departmental dose-optimization program, which includes autom ated exposure control, adjustment of the mA and/or kV according to patient size and/or use of iterati ve reconstruction technique. FINDINGS: Brain: There is no acute hemorrhage, mass effect or midline shift. Dyer-white differentiat ion is preserved. There is no hydrocephalus. There is no significant volume loss for age. The calvarium is intact. Orbits and globes are unremarkable. The paranasal sinuses are clear. Mastoid air cells are clear. Cervical Spine: There is no acute fracture. Alignment is anatomic. There is mild narrowing of the C5-6 disc. Vertebral body heights are preserved. Soft tissues are unre markable. IMPRESSION: No acute postraumatic findings. Electronically signed by: Sunil Payne MD 01/21/2020 1:08 AM CDT Due to temporary technical issues with the PACS/Fluency reporting system, reports are being signed by the in house radiologist without review as a courtesy to ensure prompt reporting. The interpreting r adiologist is fully responsible for the content of the report.
== END 2020-01-21 03:16 | disposition home or self-care (01) ==
LOC: ER 23:51
DX: S00.90XA Unspecified superficial injury of unspecified part of head, initial encounter (principal); N39.0 Urinary tract infection, site not specified; G20 Parkinson's disease; W01.198A Fall on same level from slipping, tripping and stumbling with subsequent striking against other object, initial encounter; Y93.9 Activity, unspecified; Y92.9 Unspecified place or not applicable
CPT/HCPCS: 96365; 96361; 93005; 87040 ×2; 87088; 85025; 87086; 80048; 36415; 83735; 85610; 80076; 84484; 84145; 83880; 70450; 72125; 71045; 99284; J0696; J7040; 81003; 81015